=== PATIENT | female | born 1940 | race Caucasian/White ===

== ENCOUNTER 2020-04-04 14:28 | Inpatient (IN) ==
[2020-04-04] MEDS ORDERED: ONDANSETRON INJ 2 MG/ML 2 ML VIAL IV STA (15:09)
[2020-04-04] MEDS ORDERED: SODIUM CHLORIDE 0.9% 1000ML 1,000 ML IV SCH (15:15)
[2020-04-04 15:35] LABS: Basophils # (auto) 0.02 K/uL (0-0.2); Basophils % (auto) 0.5 %; Eosinophils % (auto) 2.5 %; Hematocrit (blood only) 44.1 % (37-47); Hemoglobin 14.9 g/dL (12.0-16.0); Lymphocytes # (auto) 1.32 K/uL (1.2-3.4); Lymphocytes % (auto) 32.8 %; Mean Corpuscular Hemoglobin 29.2 pg (25-34); Mean Corpuscular Hgb Conc 33.8 g/dL (32-36); Mean Corpuscular Volume 86.3 fL (80-100); Mean Platelet Volume 8.9 fL (7.4-10.4); Monocytes # (auto) 0.27 K/uL (0.11-0.59); Monocytes % (auto) 6.7 %; Neutrophils # (auto) 2.31 K/uL (1.4-6.5); Neutrophils % (auto) 57.5 %; Platelet Count 168 K/uL (130-400); RDW Coefficient of Variation 14.3 % (11.5-14.5); RDW Standard Deviation 45.4 fL (36.4-46.3); Red Blood Count 5.11 M/uL (4.2-5.4); White Blood Count 4.02 K/uL (4.8-10.8)
[2020-04-04] MEDS: fentaNYL citrate 100 MCG/2 ML VIAL IV PRN ×2 (15:39→16:45)
[2020-04-04 15:57] LABS: Albumin Level 3.3 gm/dl (3.4-5.0); BUN Creatinine Ratio 14.4 (10-20); Calcium 9.8 mg/dl (8.5-10.1); Creatinine Clr Calc Pharmacy 51.6 ml/min; Est GFR (African American) 65.9; Est GFR (Non-African American) 56.9; Potassium 3.7 mmol/L (3.5-5.1)
[2020-04-04 15:59] LABS: Albumin Globulin Ratio 0.7 (0.9-2); Bilirubin,Total 0.6 mg/dl (0.2-1); Globulin 4.4 gm/dl (2.5-4.0); Total Protein 7.7 gm/dl (6.4-8.2)
--- NOTE | 2020-04-04 16:09 | XRay Report ---
XR pelvis 1-2V routine CLINICAL HISTORY: pelvic pain, R SACROILIAC JOINT PAIN, unable to bear weight COMPARISON STUDY: None. FINDINGS: The bones are osteopenic. No fracture or dislocation within the pelvis or hips. The sacrum is intact. Mild osteoarthritis within the bilateral sacral iliac joints and hips. Soft tissues are un remarkable. IMPRESSION: No fracture or dislocation within the pelvis or hips. ACT 112: Negative or not required by law. Electronically signed by: Frankie Wyatt M.D. 04/04/2020 4:07 PM
--- NOTE | 2020-04-04 17:27 | Magnetic Resonance Report ---
MR pelvis wo con HISTORY: 79 years-old Female right pelvic pain, unable to bear weight acute right-sided pelvic pain in a patient with inability to bear weight. COMPARISON: Radiographs of the pelvis of same day, lumbar spine radiographs 08/28/2019 TECHNIQUE: Multiplanar multisequence MRI of the pelvis was obtained without the use of IV contrast. FINDINGS: There is a 1.3 cm ovoid focus of bone marrow edema noted involving the left superior pubic ramus with out definite fracture. Subtle linear signal abnormality noted within this distribution on image 11 se tesfaye 4 and 5 which appears to be artifactual. No significant adjacent soft tissue or periosteal edema . No sacral insufficiency fracture. There is mild osteoarthritis of the bilateral femoral acetabular joints with physiologic amount of fluid within the joint spaces. No acute fracture, dislocation or av ascular necrosis of the hips. No obvious labral tear identified. Mild enthesitis of the bilateral greater trochanters at the gluteal insertion sites. No bursitis iden tified. Colonic diverticulosis. Trace nonspecific free pelvic fluid. Cystic changes of the cervix are suggestive of nabothian cysts. IMPRESSION: 1. 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 No acute fracture, dislocation or avascular necrosis. 2. Small focus of mild bone marrow edema is noted involving the left superior pubic ramus without def initive fracture. Findings may reflect stress response versus contusion. ACT 112: Negative or not required by law. The above report was generated using voice recognition software. It may contain grammatical, syntax o r spelling errors. Electronically signed by: Bobby Vinson M.D. 04/04/2020 5:26 PM
--- NOTE | 2020-04-04 17:58 | Magnetic Resonance Report ---
MR lumbar spine wo con CLINICAL HISTORY: 79 years-old Female with lumbar back pain. Acute low back and pelvic pain COMPARISON: MRI pelvis of same day, lumbar spine radiographs 08/28/2019 TECHNIQUE: Multiplanar, multi sequence MRI of the lumbar spine was performed without intravenous cont rast. FINDINGS: Operations Assistant localizer images demonstrate no gross extraspinal abnormality. No aortic aneurysm. Dilated comm on bile duct measures up to 10 mm. 9 mm T2 hyperintense lesion suggestive of a cyst is noted within t he interpolar left kidney. Conus medullaris terminates at the level of L1. Signal within imaged thora cic spinal cord and cauda equina appears unremarkable. Mild lumbar levoscoliosis redemonstrated. Remote T12 compression deformity with progressively worsened now severe anterior and superior endplat e compression with to moderate associated bone marrow edema. 4 mm retropulsion. Acute 25% superior en dplate compression deformities are noted at T11 and L2 with moderate bone marrow edema and no signifi cant retropulsion. Trace paravertebral edema. Mild bone marrow edema involving the inferior endplate T10, likely degenerative/reactive. No additional acute fracture or subluxation. Degenerative partial bony fusion at L5-S1. Mild nonspecific paravertebral edema at L4-L5 bilaterally. Moderate to marked a trophy of the paraspinal musculature. The retropulsion at T12 flattens the ventral thecal sac resulting in mild central canal and mild righ t lateral recess narrowing. T12-L1: No central canal or neuroforaminal stenosis. L1-L2: Mild spondylitic spurring with ligamentum flavum thickening L2-L3: Minimal spondylitic spurring with small posterior annular disc bulge. Ligamentum flavum thick ening with moderate facet arthrosis. Mild central canal narrowing with mild inferior bilateral forami nal stenosis. L3-L4: Minimal spondylitic spurring with small posterior annular disc bulge. Ligamentum flavum thick ening with moderate facet arthrosis. No significant central canal stenosis. Mild inferior bilateral f oraminal stenosis. L4-L5: Mild spondylitic spurring with small posterior annular disc bulge. Ligamentum flavum thickeni ng with moderate facet arthrosis. Mild central canal stenosis, AP dimension of the thecal sac measuri ng 8 mm. Mild bilateral foraminal narrowing. L5-S1: Spondylitic spurring with mild to moderate facet arthrosis. No central canal or foraminal eric rowing. IMPRESSION: 1. Acute 25% superior endplate compression deformities at T11 and L2 without retropulsion. 2. Progressively worsened severe T12 compression deformity with 4 mm retropulsion. This results in mi ld central canal stenosis. 3. Multilevel discogenic degeneration and facet arthrosis as above. 4. No high-grade central canal or foraminal narrowing. 5. Mild edema within the paraspinal musculature bilaterally at L4-L5 may reflect a muscle strain. ACT 112: Negative or not required by law. The above report was generated using voice recognition software. It may contain grammatical, syntax o r spelling errors. Electronically signed by: Bobby Vinson M.D. 04/04/2020 5:57 PM
[2020-04-04] MEDS ORDERED: HYDROmorphone INJ 0.5 MG/0.5 ML SYR IV STA (18:01)
[2020-04-04] MEDS ORDERED: LORazepam 0.5 MG/1 ML VIAL IV STA (18:23)
--- NOTE | 2020-04-04 18:59 | History & Physical Report ---
Date of Service April 04, 2020 Assessment & Plan (1) Thoracic compression fracture: Suspect the T11 fracture is responsible for her acute back pain. Spontaneous, no trauma. Acetaminophen 1g TID [place] Tramadol (not effective as she had this at home) switch to oxycodone - monitor for delirium/confusion/constipation. TLSO brace for mobilization Lidocaine patch Calcitonin nasal spray PT/OT Vit D level now. Previously did well with Fosamax however given reflux would favor IV bisphosphonate therapy which could be started as outpatient. Consult ortho spine for further advice / follow up (2) Lumbar compression fracture: As above. (3) Acid reflux: Continue pantoprazole 40mg PO daily (4) Hypothyroidism: TSH WNL in December Continue levothyroxine 75 mcg PO daily (5) Hyperlipidemia: Continue simvastatin 10mg PO daily (6) Constipation: Start Miralax daily - depending on opioid use may need stimulant laxative to avoid worsening constipation. Admission and Anticipated Discharge Date Admission Date: Apr 04, 2020 History of Present Illness Primary Care Provider: Dania Pacheco MD Alejandra Ragsdale is an 79 year old female with prior history of osteoporosis who comes to the ER today with intractable back pain. She has been having ongoing issues with intermittent low back pain in February but was doing better when she saw her PCP just 6 days previously after a course of prednisone, baclofen and tramadol. She denies any trauma but cannot remember exactly what she was doing when it came on again. Pain in centre of her lower back. No radiation. Severity 10/10 on any movement, currently 0/10 when she doesn't move. No radiation down legs, incontinence of bowels/bladder or perianal numbness. She had been using a walker to help since her back pain with . She lives by herself and is currently unable to mobilize with the pain. Of note she has a significant history of osteoporosis and was on Fosamax for "a number of years". She reports having a repeat DEXA scan showing osteopenia and given the duration of being on Fosamax this was subsequently discontinued (she thinks approximately 10 years years ago. Only fractures since have been due to a fall. She also reports an episode of back spasms in August this year with in hindsight was probably the start of her compression fractures. In the ER lumbar MRI showed acute superior endplate compression deformities of T11 and L2 with progressively worsened severe T12 compression fracture with 4mm retropulsion resulting in mild central canal stenosis. She was referred to medicine for admission and ongoing management of compression fractures and intractable back pain. Allergies Allergy/AdvReac Type Severity Reaction Status Date / Time adhesive Allergy Severe Redness of Verified 04/04/20 15:42 Skin Home Medications Medication Instructions Recorded Confirmed Type fluticasone propionate 250 1 puffs INH BID #180 ea 06/28/19 04/04/20 Rx mcg/actuation blister powder for inhalation simvastatin 10 mg tablet 10 mg PO QPM #90 tab 11/15/19 04/04/20 Rx acetaminophen [Tylenol 8 Hour] 650 mg PO Q12H PRN 11/22/19 04/04/20 History pantoprazole 40 mg PO QAM 11/22/19 04/04/20 History levothyroxine 75 mcg capsule 75 mcg PO DAILY #90 cap 01/04/20 04/04/20 Rx Past Med/Surg History Medical History Asthma DOESNT USE RESC. INH GERD (gastroesophageal reflux disease) Hx of colonic polyps Hypertension ON ABOVE LIST BUT 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" Hypothyroidism Left leg cellulitis RESOLVED Osteoarthritis Right shoulder pain Surgical History History of colonoscopy History of tooth extraction Hx of bilateral cataract extraction S/P carpal tunnel release RIGHT S/P cholecystectomy S/P tonsillectomy Family History Grandfather (Paternal) Colorectal cancer Lung cancer Grandfather (Maternal) Myocardial infarction Mother Stroke Grandmother Rectal cancer Uterine cancer Denies family history of Ovarian cancer Prostate cancer Breast cancer Social History Smoking Status: Former smoker Age Started Using Tobacco: 12; Age Quit Using Tobacco: 56; packs per day: 2; Years Smoked: 44; Cigarettes Per Day: 20-40; Second Hand Exposure: No; Do You Dip or Chew Tobacco: No; Tobacco Cessation Education Requested by Patient: No Hx Alcohol Use: No Hx Substance Use: Yes Substance Use Type Other:: pain medication for pain Preferred Language: Macedonian Communication Ability: Effective Visual Impairment: No Limitations Hearing Ability: Normal Land Law Examiner Required: No Beliefs That Will Affect Care: None marital status: / Current Living Situation: Alone current occupational status: retired Other Information That Helps Us Care for You: No Feels Safe at Home: Yes Safety Concerns: Feels Safe At This Time Childhood Exposure to Second-Hand Smoke: Yes (mother and sister in house) Dental Care, Regularly: Yes Physical Activity Frequency: Does not Exercise Seatbelt Use: always Sunscreen Use: Yes Assistive Devices: Walker Review of Systems Review of Systems: All systems reviewed & are unremarkable except as noted in HPI & below Physical Exam Constitutional: well developed and well nourished; no acute distress Eyes: PERRL, conjunctivae normal, anicteric sclerae ENMT: external ear and nose normal, oropharynx normal Neck: trachea midline, no thyromegaly Respiratory: normal respiratory effort, lungs clear to auscultation Cardiovascular: RRR, no murmur, no edema Gastrointestinal (Abdomen): normal bowel sounds, soft, nontender, no hepatosplenomegaly Musculoskeletal: no cyanosis or clubbing, extremities motor strength 5/5 (b/l LE strength 5/5 throughout) Spine: + limited thoraco-lumbar ROM (due to pain), + pain with thoraco-lumbar ROM, + thoracic spinal tenderness (main pain over T11/12 on movement, mainly paraspinal pain on exam), + lumbar spinal tenderness and + straight leg raise positive (b/l); no sacral tenderness Skin: no rashes, warm and dry Neurologic: moves all extremities and awake; no focal motor deficits and not confused Psychiatric: A+Ox3, euthymic affect Results & Data Results & Data ([facility]) Vital Signs (Past 12 Hours) Vital Signs Temp Pulse Pulse Resp BP BP Pulse Ox 04/04/20 18:31 94 H 15 97 04/04/20 18:30 88 15 143/86 H 99 04/04/20 18:07 89 L 04/04/20 18:01 79 17 92 04/04/20 18:00 83 20 153/83 H 95 04/04/20 17:59 84 12 159/85 H 97 04/04/20 17:58 89 18 97 04/04/20 16:00 72 13 99 04/04/20 15:31 77 16 96 04/04/20 15:30 74 12 140/67 95 04/04/20 15:01 81 18 94 04/04/20 15:00 78 14 128/78 95 04/04/20 14:39 84 23 93 04/04/20 14:38 36.9 C 89 89 20 168/69 H 168/69 H 94 04/04/20 14:34 82 21 168/69 H 94 Diagnostic Findings XR chest 1V portable IMPRESSION: No acute process. XR pelvis 1-2V routine IMPRESSION: No fracture or dislocation within the pelvis or hips. MR pelvis wo con IMPRESSION: 1. 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 No acute fracture, dislocation or avascular necrosis. 2. Small focus of mild bone marrow edema is noted involving the left superior pubic ramus without definitive fracture. Findings may reflect stress response versus contusion. MR lumbar spine wo con IMPRESSION: 1. Acute 25% superior endplate compression deformities at T11 and L2 without retropulsion. 2. Progressively worsened severe T12 compression deformity with 4 mm retropulsion. This results in mild central canal stenosis. 3. Multilevel discogenic degeneration and facet arthrosis as above. 4. No high-grade central canal or foraminal narrowing. 5. Mild edema within the paraspinal musculature bilaterally at L4-L5 may reflect a muscle strain. Medications Administered ER Medications given: NSS 1L 75 ml/hr Fentanyl 50 mcg IV x2 Ondansetron 4mg IV Dilaudid 0.25mg IV Code Status & VTE Plan Code Status Full VTE Prophylaxis Plan VTE Prophylaxis will be ordered: No PG Care Time/CCT Total # of Minutes Spent Total Time Spent with Patient: Total time spent is greater than 50% in coordination of care (as documented) at patient's floor/unit and/or counseling patient: Coding Level of Care Code 63342 OBS Care - Level 2 Diagnoses Thoracic compression fracture S22.000A Lumbar compression fracture S32.000A Acid reflux K21.9 Hypothyroidism E03.9 Hyperlipidemia E78.5 Constipation K59.00
--- NOTE | 2020-04-04 20:43 | XRay Report ---
XR chest 1V portable HISTORY: 79 years-old Female hypoxia acute hypoxia COMPARISON: None TECHNIQUE: Portable supine AP view of the chest FINDINGS: Cardiomediastinal and hilar silhouettes are within normal limits. Calcified plaque of the aorta. Mini mal linear atelectasis/scarring of the left lung base. No pneumothorax, large pleural effusion, overt pulmonary edema or airspace consolidation to suggest pneumonia. Blunting of the costophrenic angles. Bones appear grossly intact. IMPRESSION: No acute process. ACT 112: Negative or not required by law. The above report was generated using voice recognition software. It may contain grammatical, syntax o r spelling errors. Electronically signed by: Bobby Vinson M.D. 04/04/2020 8:42 PM
--- NOTE | 2020-04-04 21:22 | Emergency Department Note ---
Impression & Plan Compression fracture of thoracic vertebrae, non-traumatic, Thoracic compression fracture, Compression fracture of lumbar vertebra, non-traumatic, Intractable back pain ED Provider Note NAME: DIONICIO PENALOZA AGE: 79 SEX: F ARRIVES VIA: Ambulance INFORMANT: Patient, ED PROVIDER(S): Deena Marin MD CHIEF COMPLAINT: Back pain PLAN: Disposition: Admission Condition: Fair Referral: Hospitalist MEDICAL DECISION MAKING: This patient was evaluated and appeared to be in some discomfort. IV access was obtained and laboratory work was drawn. Patient did have lumbar x-rays performed previously, pelvis x-ray was performed without acute abnormality. Lumbar and pelvic MRIs were performed and are significant for acute 25% superior endplate compression deformities at T11 and L2 without retropulsion and progressively worsened severe T12 compression deformity with 4 mm retropulsion. This results in mild central canal stenosis. This explains the patient's significant worsening of back pain and inability to ambulate. She was medicated with IV fentanyl initially without significant relief, she was then given IV Dilaudid and a small dose of IV Ativan for muscular spasm. Patient's case was d iscussed with the hospitalist service who will evaluate the patient for further management. Triage Nursing notes reviewed. Prior medical records reviewed Vital Signs: reviewed and remarkable for no significant abnormalities Differential diagnosis: Musculoskeletal, disc herniation, fracture, metastatic disease, cord compr ession, discitis, sciatica, cauda equina, infection, aortic disease, renal colic, gastrointestinal, as well as other pathologies. ER treatment provided: IV fentanyl IV Zofran IV Dilaudid IV Ativan Diagnostics interpreted by me: Cardiac Monitoring: An order for cardiac monitoring was placed and the patient is noted to be in a normal sinus rhythm at 89 bpm. Laboratory studies: See below Imaging studies: XR pelvis 1-2V routine CLINICAL HISTORY: pelvic pain, R SACROILIAC JOINT PAIN, unable to bear weight COMPARISON STUDY: None. FINDINGS: The bones are osteopenic. No fracture or dislocation within the pelvis or hips. The sacrum is intact. Mild osteoarthritis within the bilateral sacral iliac joints and hips. Soft tissues are unremarkable. IMPRESSION: No fracture or dislocation within the pelvis or hips. ACT 112: Negative or not required by law. Electronically signed by: Frankie Wyatt M.D. 04/04/2020 4:07 PM Dictated: 04/04/20 1604Transcribed: 04/04/20 1604 MR lumbar spine wo con CLINICAL HISTORY: 79 years-old Female with lumbar back pain. Acute low back and pelvic pain COMPARISON: MRI pelvis of same day, lumbar spine radiographs 08/28/2019 TECHNIQUE: Multiplanar, multi sequence MRI of the lumbar spine was performed without intravenous contrast. FINDINGS: Surgical Aide localizer images demonstrate no gross extraspinal abnormality. No aortic aneurysm. Dilated common bile duct measures up to 10 mm. 9 mm T2 hyperintense lesion suggestive of a cyst is noted within the interpolar left kidney. Conus medullaris terminates at the level of L1. Signal within imaged thoracic spinal cord and cauda equina appears unremarkable. Mild lumbar levoscoliosis redemonstrated. Remote T12 compression deformity with progressively worsened now severe anterior and superior endplate compression with to moderate associated bone marrow edema. 4 mm retropulsion. Acute 25% superior endplate compression deformities are noted at T11 and L2 with moderate bone marrow edema and no significant retropulsion. Trace paravertebral edema. Mild bone marrow edema involving the inferior endplate T10, likely degenerative/reactive. No additional acute fracture or subluxation. Degenerative partial bony fusion at L5-S1. Mild nonspecific paravertebral edema at L4-L5 bilaterally. Moderate to marked atrophy of the paraspinal musculature. The retropulsion at T12 flattens the ventral thecal sac resulting in mild central canal and mild right lateral recess narrowing. T12-L1: No central canal or neuroforaminal stenosis. L1-L2: Mild spondylitic spurring with ligamentum flavum thickening L2-L3: Minimal spondylitic spurring with small posterior annular disc bulge. Ligamentum flavum thickening with moderate facet arthrosis. Mild central canal narrowing with mild inferior bilateral foraminal stenosis. L3-L4: Minimal spondylitic spurring with small posterior annular disc bulge. Ligamentum flavum thickening with moderate facet arthrosis. No significant leda tral canal stenosis. Mild inferior bilateral foraminal stenosis. L4-L5: Mild spondylitic spurring with small posterior annular disc bulge. Ligamentum flavum thickening with moderate facet arthrosis. Mild central canal stenosis, AP dimension of the thecal sac measuring 8 mm. Mild bilateral foramina l narrowing. L5-S1: Spondylitic spurring with mild to moderate facet arthrosis. No central canal or foraminal narrowing. IMPRESSION: 1. Acute 25% superior endplate compression deformities at T11 and L2 without retropulsion. 2. Progressively worsened severe T12 compression deformity with 4 mm r etropulsion. This results in mild central canal stenosis. 3. Multilevel discogenic degeneration and facet arthrosis as above. 4. No high-grade central canal or foraminal narrowing. 5. Mild edema within the paraspinal musculature bilaterally at L4-L5 may reflect a muscle strain. ACT 112: Negative or not required by law. The above report was generated using voice recognition software. It may contain grammatical, syntax or spelling errors. Electronically signed by: oBbby Vinson M.D. 04/04/2020 5:57 PM Dictated: 04/04/20 174Transcribed: 04/04/201745 MR pelvis wo con HISTORY: 79 years-old Female right pelvic pain, unable to bear weight acute right-sided pelvic pain in a patient with inability to bear weight. COMPARISON: Radiographs of the pelvis of same day, lumbar spine radiographs 08/28/2019 TECHNIQUE: Multiplanar multisequence MRI of the pelvis was obtained without the use of IV contrast. FINDINGS: There is a 1.3 cm ovoid focus of bone marrow edema noted involving the left superior pubic ramus without definite fracture. Subtle linear signal abnormality noted within this distribution on image 11 series 4 and 5 which appears to be artifactual. No significant adjacent soft tissue or periosteal edema. No sacral insufficiency fracture. There is mild osteoarthritis of the bilateral femoral acetabular joints with physiologic amount of fluid within the joint spaces. No acute fracture, dislocation or avascular necrosis of the hips. No obvious labral tear identified. Mild enthesitis of the bilateral greater trochanters at the gluteal insertion sites. No bursitis identified. Colonic diverticulosis. Trace nonspecific free pelvic fluid. Cystic changes of the cervix are suggestive of nabothian cysts. IMPRESSION: 1. 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 No acute fracture, dislocation or avascular necrosis. 2. Small focus of mild bone marrow edema is noted involving the left superior pubic ramus without definitive fracture. Findings may reflect stress response versus contusion. ACT 112: Negative or not required by law. The above report was generated using voice recognition software. It may contain grammatical, syntax or spelling errors. Electronically signed by: Bobby Vinson M.D. 04/04/2020 5:26 PM Dictated: 04/04/201717Transcribed: 04/04/201717 HPI: 79/F arrives for evaluation of intractable back pain. The patient states she has been walking with a walker and attempting to hold herself up with her hands at the sink. She states she is not able to bear weight without supporting herself with her upper extremities. Patient believes it is related to pain and not necessarily weakness however this is a significant decline over the last month. Patient states in August she had similar pain and was treated with oral pain medicines and it seemed to resolve. In February of this pain came back and she was treated with muscle relaxers, steroids and pain medicines. She has not been able to get a hold of the pain and it has become severe in the last several days. She denies any loss of bowel or bladder function. She denies any recent falls. She denies any known injury to the back. ROS: See above HPI for pertinent positives & negatives. A total of 10 systems reviewed and were otherwise negative. PAST MEDICAL HISTORY:See Below PAST SURGICAL HISTORY:See Below FAMILY HISTORY:See Below SOCIAL HISTORY:See Below HOME MEDICATIONS:See Below ALLERGIES:See Below PHYSICAL EXAMINATION: Vital signs reviewed. General: Well-appearing 79-year-old female, in some discomfort Cardiovascular: Regular rate and rhythm, no extra sounds. Pulmonary: Clear to auscultation bilaterally, normal work of breathing. Abdomen: Soft, nontender, nondistended, positive bowel sounds. Musculoskeletal: Atraumatic, minimal peripheral edema. Nontender to palpation o rubens the cervical and thoracic spines with minimal tenderness to palpation over the low lumbar spine. There is tenderness over the right SI joint without acute deformity or swelling. No pain to pelvic rocking. Negative straight leg raise bilaterally. Neurologic: Patient awake alert and oriented x 3, equal strength in the bilateral lower extremities. Skin: Warm, dry, no rash Deena Marin MD Past Med/Surg History Medical History (Updated 04/05/20 @ 17:32 by PORTIA Chow) Asthma DOESNT USE RESC. INH GERD (gastroesophageal reflux disease) Hx of colonic polyps Hypertension ON ABOVE LIST BUT 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" Hypothyroidism Left leg cellulitis RESOLVED Osteoarthritis Right shoulder pain Surgical History History of colonoscopy History of tooth extraction Hx of bilateral cataract extraction S/P carpal tunnel release RIGHT S/P cholecystectomy S/P tonsillectomy Family History Grandfather (Paternal) Colorectal cancer Lung cancer Grandfather (Maternal) Myocardial infarction Mother Stroke Grandmother Rectal cancer Uterine cancer Denies family history of Ovarian cancer Prostate cancer Breast cancer Social History Smoking Status: Former smoker Age Started Using Tobacco: 12; Age Quit Using Tobacco: 56; packs per day: 2; Years Smoked: 44; Cigarettes Per Day: 20-40; Second Hand Exposure: No; Do You Dip or Chew Tobacco: No; Tobacco Cessation Education Requested by Patient: No Hx Alcohol Use: No Hx Substance Use: Yes Substance Use Type Other:: pain medication for pain Preferred Language: Occitan Communication Ability: Effective Visual Impairment: No Limitations Hearing Ability: Normal Chancery Clerk Required: No Beliefs That Will Affect Care: None marital status: / Current Living Situation: Alone current occupational status: retired Other Information That Helps Us Care for You: No Feels Safe at Home: Yes Safety Concerns: Feels Safe At This Time Childhood Exposure to Second-Hand Smoke: Yes (mother and sister in house) Dental Care, Regularly: Yes Physical Activity Frequency: Does not Exercise Seatbelt Use: always Sunscreen Use: Yes Assistive Devices: Denture - Upper and Walker Allergies Allergies Allergy/AdvReac Type Severity Reaction Status Date / Time adhesive Allergy Severe Redness of Verified 04/04/20 15:42 Skin Home Meds Home Medications Medication Instructions Recorded Confirmed acetaminophen [Tylenol 8 Hour] 650 mg PO Q12H PRN 11/22/19 04/04/20 pantoprazole 40 mg PO QAM 11/22/19 04/04/20 Previous Rx's Medication Instructions Recorded fluticasone propionate 250 1 puffs INH BID #180 ea 06/28/19 mcg/actuation blister powder for inhalation simvastatin 10 mg tablet 10 mg PO QPM #90 tab 11/15/19 levothyroxine 75 mcg capsule 75 mcg PO DAILY #90 cap 01/04/20 Results & Data (ED) Vital Signs Vital Signs - 24 hr 04/04/20 14:34 04/04/20 14:38 04/04/20 14:39 Temperature 36.9 C Temperature Source Oral Pulse Rate 82 89 84 Pulse Rate [Apical] 89 Pulse Rate from SpO2 Sensor 82 84 Respiratory Rate 21 20 23 Respiratory Effort / Characteristics Non-Labored Spontaneous Respiratory Depth Normal Respiratory Pattern Regular Blood Pressure 168/69 H 168/69 H Blood Pressure [Right Arm] 168/69 H Blood Pressure Mean 102 102 Blood Pressure Mean [Right Arm] 102 Pulse Oximetry 94 94 93 Oxygen Delivery Method Room Air Oxygen Flow Rate Sepsis Recent Fever Within 48 Hours No Sepsis New/Unexplained Change in Mental Status No Sepsis Action Taken by Nursing No Action Required Pulse Oximetry Post Tiitration 04/04/20 15:00 04/04/20 15:01 04/04/20 15:30 Temperature Temperature Source Pulse Rate 78 81 74 Pulse Rate [Apical] Pulse Rate from SpO2 Sensor 78 81 74 Respiratory Rate 14 18 12 Respiratory Effort / Characteristics Respiratory Depth Respiratory Pattern Blood Pressure 128/78 140/67 Blood Pressure [Right Arm] Blood Pressure Mean 94 91 Blood Pressure Mean [Right Arm] Pulse Oximetry 95 94 95 Oxygen Delivery Method Oxygen Flow Rate Sepsis Recent Fever Within 48 Hours Sepsis New/Unexplained Change in Mental Status Sepsis Action Taken by Nursing Pulse Oximetry Post Tiitration 04/04/20 15:31 04/04/20 16:00 04/04/20 17:58 Temperature Temperature Source Pulse Rate 77 72 89 Pulse Rate [Apical] Pulse Rate from SpO2 Sensor 76 72 81 Respiratory Rate 16 13 18 Respiratory Effort / Characteristics Respiratory Depth Respiratory Pattern Blood Pressure Blood Pressure [Right Arm] Blood Pressure Mean Blood Pressure Mean [Right Arm] Pulse Oximetry 96 99 97 Oxygen Delivery Method Oxygen Flow Rate Sepsis Recent Fever Within 48 Hours Sepsis New/Unexplained Change in Mental Status Sepsis Action Taken by Nursing Pulse Oximetry Post Tiitration 04/04/20 17:59 04/04/20 18:00 04/04/20 18:01 Temperature Temperature Source Pulse Rate 84 83 79 Pulse Rate [Apical] Pulse Rate from SpO2 Sensor 79 80 79 Respiratory Rate 12 20 17 Respiratory Effort / Characteristics Respiratory Depth Respiratory Pattern Blood Pressure 159/85 H 153/83 H Blood Pressure [Right Arm] Blood Pressure Mean 109 106 Blood Pressure Mean [Right Arm] Pulse Oximetry 97 95 92 Oxygen Delivery Method Oxygen Flow Rate Sepsis Recent Fever Within 48 Hours Sepsis New/Unexplained Change in Mental Status Sepsis Action Taken by Nursing Pulse Oximetry Post Tiitration 04/04/20 18:07 04/04/20 18:30 04/04/20 18:31 Temperature Temperature Source Pulse Rate 88 94 H Pulse Rate [Apical] Pulse Rate from SpO2 Sensor 87 79 Respiratory Rate 15 15 Respiratory Effort / Characteristics Respiratory Depth Respiratory Pattern Blood Pressure 143/86 H Blood Pressure [Right Arm] Blood Pressure Mean 105 Blood Pressure Mean [Right Arm] Pulse Oximetry 89 L 99 97 Oxygen Delivery Method Nasal Cannula Oxygen Flow Rate 2 Sepsis Recent Fever Within 48 Hours Sepsis New/Unexplained Change in Mental Status Sepsis Action Taken by Nursing Pulse Oximetry Post Tiitration 97 04/04/20 19:00 04/04/20 19:30 04/04/20 20:00 Temperature Temperature Source Pulse Rate 82 86 72 Pulse Rate [Apical] Pulse Rate from SpO2 Sensor 80 86 73 Respiratory Rate 15 14 13 Respiratory Effort / Characteristics Respiratory Depth Respiratory Pattern Blood Pressure 150/76 H 157/85 H 151/73 H Blood Pressure [Right Arm] Blood Pressure Mean 100 109 99 Blood Pressure Mean [Right Arm] Pulse Oximetry 98 99 99 Oxygen Delivery Method Oxygen Flow Rate Sepsis Recent Fever Within 48 Hours Sepsis New/Unexplained Change in Mental Status Sepsis Action Taken by Nursing Pulse Oximetry Post Tiitration Laboratory Data Result diagrams: 04/04/20 15:24 04/04/20 15:24 Lab Results 04/04/20 04/04/20 04/04/20 Range/Units 15:24 15:24 15:24 WBC 4.02 L (4.8-10.8) K/uL RBC 5.11 (4.2-5.4) M/uL Hgb 14.9 (12.0-16.0) g/dL Hct 44.1 (37-47) % MCV 86.3 (80-100) fL MCH 29.2 (25-34) pg MCHC 33.8 (32-36) g/dL RDW Std Deviation 45.4 (36.4-46.3) fL RDW Coeff of Jean Carlos 14.3 (11.5-14.5) % Plt Count 168 (130-400) K/uL MPV 8.9 (7.4-10.4) fL Immature Gran % (Auto) 0.0 % Neut % (Auto) 57.5 % Lymph % (Auto) 32.8 % [place] % (Auto) 6.7 % Eos % (Auto) 2.5 % Baso % (Auto) 0.5 % Neut # (Auto) 2.31 (1.4-6.5) K/uL Lymph # (Auto) 1.32 (1.2-3.4) K/uL [place] # (Auto) 0.27 (0.11-0.59) K/uL Eos # (Auto) 0.10 (0-0.5) K/uL Baso # (Auto) 0.02 (0-0.2) K/uL Immature Gran # (Auto) 0.00 (0.00-0.02) K/uL Sodium 141 (136-145) mmol/L Potassium 3.7 (3.5-5.1) mmol/L Chloride 110 H (98-107) mmol/L Carbon Dioxide 25 (21-32) mmol/L Anion Gap 6.0 (3-11) BUN 14 (7-18) mg/dl Creatinine 0.94 (0.6-1.2) mg/dl Est Cr Clr Drug Dosing 51.6 ml/min Est GFR ( Amer) 65.9 Est GFR (Non-Af Amer) 56.9 BUN/Creatinine Ratio 14.4 (10-20) Glucose 89 (70-99) mg/dl POC Lactic Acid Mamadou (0.90-1.70) mmol/L Calcium 9.8 (8.5-10.1) mg/dl Total Bilirubin 0.6 (0.2-1) mg/dl AST 20 (15-37) U/L ALT 17 (12-78) U/L Alkaline Phosphatase 103 (45-117) U/L Total Protein 7.7 (6.4-8.2) gm/dl Albumin 3.3 L (3.4-5.0) gm/dl Globulin 4.4 H (2.5-4.0) gm/dl Albumin/Globulin Ratio 0.7 L (0.9-2) 25-OH Vitamin D Total 19.6 L (30-100) ng/ml 04/04/20 Range/Units 15:30 WBC (4.8-10.8) K/uL RBC (4.2-5.4) M/uL Hgb (12.0-16.0) g/dL Hct (37-47) % MCV (80-100) fL MCH (25-34) pg MCHC (32-36) g/dL RDW Std Deviation (36.4-46.3) fL RDW Coeff of Jean Carlos (11.5-14.5) % Plt Count (130-400) K/uL MPV (7.4-10.4) fL Immature Gran % (Auto) % Neut % (Auto) % Lymph % (Auto) % [place] % (Auto) % Eos % (Auto) % Baso % (Auto) % Neut # (Auto) (1.4-6.5) K/uL Lymph # (Auto) (1.2-3.4) K/uL [place] # (Auto) (0.11-0.59) K/uL Eos # (Auto) (0-0.5) K/uL Baso # (Auto) (0-0.2) K/uL Immature Gran # (Auto) (0.00-0.02) K/uL Sodium (136-145) mmol/L Potassium (3.5-5.1) mmol/L Chloride (98-107) mmol/L Carbon Dioxide (21-32) mmol/L Anion Gap (3-11) BUN (7-18) mg/dl Creatinine (0.6-1.2) mg/dl Est Cr Clr Drug Dosing ml/min Est GFR ( Amer) Est GFR (Non-Af Amer) BUN/Creatinine Ratio (10-20) Glucose (70-99) mg/dl POC Lactic Acid Mamadou 1.20 (0.90-1.70) mmol/L Calcium (8.5-10.1) mg/dl Total Bilirubin (0.2-1) mg/dl AST (15-37) U/L ALT (12-78) U/L Alkaline Phosphatase (45-117) U/L Total Protein (6.4-8.2) gm/dl Albumin (3.4-5.0) gm/dl Globulin (2.5-4.0) gm/dl Albumin/Globulin Ratio (0.9-2) 25-OH Vitamin D Total (30-100) ng/ml Administered Medications Acetaminophen (Acetaminophen 500 Mg Tab) 1,000 mg PO TID [place] Stop: 05/04/20 22:30 Last Admin: 04/05/20 20:11 Dose: 1,000 mg Documented by: [id number] Admin: 04/05/20 14:08 Dose: 1,000 mg Documented by: [id number] Admin: 04/05/20 08:06 Dose: 1,000 mg Documented by: [id number] Admin: 04/05/20 00:01 Dose: 1,000 mg Documented by: [id number] Calcitonin Hartshorne (Calcitonin Hartshorne Na 200 Iu/Ac 3.7 Ml Btl) 1 sprays NA HS [facility] Stop: 05/04/20 22:30 Last Admin: 04/05/20 20:12 Dose: 1 sprays Documented by: [id number] Admin: 04/05/20 00:00 Dose: 1 sprays Documented by: [id number] Fluticasone/Vilanterol (Fluticasone/Vilanterol 100/25mcg 14 Puffs/Inhaler) 1 puffs INH DAILY [facility] Stop: 05/05/20 08:59 Last Admin: 04/05/20 08:05 Dose: 1 puffs Documented by: [id number] Levothyroxine Sodium (Levothyroxine Sodium 75 Mcg Tablet) 75 mcg PO DAILYBB [facility] Stop: 05/05/20 06:29 Last Admin: 04/05/20 06:44 Dose: 75 mcg Documented by: [id number] Lidocaine (Lidocaine 5% 1 Patch) 1 patch TD DAILY@0900 [facility] Stop: 05/05/20 08:59 Last Admin: 04/05/20 08:58 Dose: 1 patch Documented by: [id number] Miscellaneous (Remove Lidoderm Patch) 1 ea N/A [facility] Stop: 05/05/20 20:59 Last Admin: 04/05/20 20:12 Dose: 1 ea Documented by: [id number] Oxycodone HCl (Oxycodone Hcl Ir 5 Mg Tab (Immediate Release)) 5 - 10 mg PO Q4H PRN PRN Reason: Pain Stop: 04/18/20 22:30 Last Admin: 04/05/20 22:44 Dose: 10 mg Documented by: [id number] Admin: 04/05/20 18:21 Dose: 10 mg Documented by: [id number] Pantoprazole Sodium (Pantoprazole 40 Mg Tab) 40 mg PO QAM [facility] Stop: 05/05/20 08:59 Last Admin: 04/05/20 08:05 Dose: 40 mg Documented by: [id number] Polyethylene Glycol (Polyethylene (Miralax) 17 Gm Pack) 17 gm PO DAILY PRN PRN Reason: Constipation Stop: 05/04/20 22:30 Last Admin: 04/05/20 17:32 Dose: 17 gm Documented by: [id number] Polyethylene Glycol (Polyethylene (Miralax) 17 Gm Pack) 17 gm PO [facility] Stop: 05/05/20 08:59 Last Admin: 04/05/20 08:00 Dose: Not Given Documented by: [id number] Simvastatin (Simvastatin 10 Mg Tab) 10 mg PO QPM [facility] Stop: 05/04/20 22:30 Last Admin: 04/05/20 20:12 Dose: 10 mg Documented by: [id number] Admin: 04/05/20 00:02 Dose: 10 mg Documented by: [id number] Discontinued Medications Fentanyl Citrate (Fentanyl Citrate 100 Mcg/2 Ml Vial) 50 mcg IV Q1H PRN PRN Reason: Pain Stop: 04/18/20 15:08 Last Admin: 04/04/20 16:45 Dose: 50 mcg Documented by: [id number] Admin: 04/04/20 15:39 Dose: 50 mcg Documented by: [id number] Hydromorphone HCl (Hydromorphone Inj 0.5 Mg/0.5 Ml Syr) 0.25 mg IV NOW STA Stop: 04/04/20 18:02 Last Admin: 04/04/20 18:17 Dose: 0.25 mg Documented by: [id number] Sodium Chloride (Nss 1000ml) 1,000 mls @ 75 mls/hr IV .[id number] [facility] Stop: 04/05/20 04:34 Last Infusion: 04/04/20 22:30 Dose: 0 mls/hr Documented by: [id number] Admin: 04/04/20 15:38 Dose: 75 mls/hr Documented by: [id number] Lorazepam (Ativan) 0.5 mg in 1 mls @ 1 mls/min IV NOW STA Stop: 04/04/20 18:24 Last Admin: 04/04/20 18:29 Dose: 1 mls/min Documented by: [id number] Lidocaine (Lidocaine 5% 1 Patch) 1 patch TD DAILY@2100 [facility] Stop: 05/04/20 22:30 Last Admin: 04/05/20 01:31 Dose: Not Given Documented by: [id number] Miscellaneous (Remove Lidoderm Patch) 1 ea N/A QAM [facility] Stop: 05/05/20 08:59 Last Admin: 04/05/20 07:59 Dose: Not Given Documented by: [id number] Ondansetron HCl (Ondansetron Inj 2 Mg/Ml 2 Ml Vial) 4 mg IV NOW STA Stop: 04/04/20 15:10 Last Admin: 04/04/20 15:39 Dose: 4 mg Documented by: [id number] Oxycodone HCl (Oxycodone Hcl Ir 5 Mg Tab (Immediate Release)) 5 mg PO Q4H PRN PRN Reason: Pain Stop: 04/18/20 22:30 Last Admin: 04/05/20 14:08 Dose: 5 mg Documented by: [id number] Admin: 04/05/20 08:04 Dose: 5 mg Documented by: [id number] Admin: 04/04/20 23:03 Dose: 5 mg Documented by: [id number] Discharge Plan Visit Data Chief Complaint: Back Injury/Pain ED Provider: Deena Marin Discharge Problem: Compression fracture of thoracic vertebrae, non-traumatic, Thoracic compression fracture, Compression fracture of lumbar vertebra, non-traumatic, Intractable back pain Patient Disposition: Admitted As Inpatient Discharge Instructions Interventions: ED Discharge Assessment Last Done: 04/04/20 22:27 Discharge Problem: Compression fracture of thoracic vertebrae, non-traumatic Qualifiers: Encounter type: initial encounter Thoracic vertebra fracture level: T11 Qualified Code(s): M48.54XA - Collapsed vertebra, not elsewhere classified, thoracic region, initial encounter for fracture Thoracic compression fracture Qualifiers: Encounter type: initial encounter Thoracic vertebra fracture level: T12 Qualified Code(s): S22.080A - Wedge compression fracture of T11-T12 vertebra, initial encounter for closed fracture Compression fracture of lumbar vertebra, non-traumatic Qualifiers: Encounter type: initial encounter Lumbar vertebra fracture level: L2 Qualified Code(s): M48.56XA - Collapsed vertebra, not elsewhere classified, lumbar region, initial encounter for fracture
[2020-04-04] MEDS ORDERED: ONDANSETRON INJ 2 MG/ML 2 ML VIAL IV PRN (22:31)
[2020-04-04] MEDS ORDERED: ALUMINUM/MAGNESIUM SUSP 30 ML UDC PO PRN (22:31)
[2020-04-04] MEDS ORDERED: POLYETHYLENE (MIRALAX) 17 GM PACK PO PRN (22:31)
[2020-04-04] MEDS ORDERED: HYDROmorphone INJ 0.5 MG/0.5 ML SYR IV PRN (22:31)
[2020-04-04] MEDS ORDERED: LIDOCAINE 5% 1 PATCH TD SCH (22:31)
[2020-04-04] MEDS: oxyCODONE HCL IR 5 MG TAB (IMMEDIATE RELEASE) PO PRN (23:03)
[2020-04-05] MEDS: ACETAMINOPHEN 500 MG TAB PO SCH ×4 (00:01→20:11)
[2020-04-05] MEDS: SIMVASTATIN 10 MG TAB PO SCH ×2 (00:02→20:12)
[2020-04-05] MEDS: LEVOTHYROXINE SODIUM 75 MCG TABLET PO SCH (06:44)
[2020-04-05] MEDS: POLYETHYLENE (MIRALAX) 17 GM PACK PO SCH (08:00)
[2020-04-05] MEDS: oxyCODONE HCL IR 5 MG TAB (IMMEDIATE RELEASE) PO PRN ×4 (08:04→22:44)
[2020-04-05] MEDS: FLUTICASONE/VILANTEROL 100/25MCG 14 PUFFS/INHALER INH SCH (08:05)
[2020-04-05] MEDS: PANTOprazole 40 MG TAB PO SCH (08:05)
[2020-04-05] MEDS: LIDOCAINE 5% 1 PATCH TD SCH (08:58)
[2020-04-05] MEDS ORDERED: LIDOCAINE 5% 1 PATCH TD SCH ×2 (09:00→21:00)
--- NOTE | 2020-04-05 10:29 | Orthopedic Consultation ---
Date of Consultation April 05, 2020 Assessment & Plan (1) Compression fracture of thoracic vertebrae, non-traumatic: Lungs yesterday with the patient regarding her imaging and treatment plan. At this time she will wear her TLSO brace when out of bed and ambulating. I explained to her that most of these fractures heal very well with the passage of time and some modest pain control. If however she continues to have pain that is limiting in nature despite therapy and the passage of time we may have to consider kyphoplasty however would like to avoid this. Should require at least a 2 level kyphoplasty at T11 and L2. T12 is essentially vertebral plan it would be almost impossible to access. That said she is at high risk for adjacent level fractures. Present on Admission?: Yes History of Present Illness Reason for Consultation: Back pain Attending Physician: John Rosales, DO History of Present Illness This is a very pleasant 79-year-old female who presents to emergency room with significant back pain. She denies any history of trauma fall or event. She did undergo imaging which demonstrated compression fractures of T11-T12 and L2. Today she decreased transcribes mostly back pain she was able to tolerate her brace when out of bed earlier this morning. She denies any leg pain numbness or tingling. Allergies Allergy/AdvReac Type Severity Reaction Status Date / Time adhesive Allergy Severe Redness of Verified 04/04/20 15:42 Skin Home Medications Medication Instructions Recorded Confirmed Type fluticasone propionate 250 1 puffs INH BID #180 ea 06/28/19 04/04/20 Rx mcg/actuation blister powder for inhalation simvastatin 10 mg tablet 10 mg PO QPM #90 tab 11/15/19 04/04/20 Rx acetaminophen [Tylenol 8 Hour] 650 mg PO Q12H PRN 11/22/19 04/04/20 History pantoprazole 40 mg PO QAM 11/22/19 04/04/20 History levothyroxine 75 mcg capsule 75 mcg PO DAILY #90 cap 01/04/20 04/04/20 Rx Patient History Medical History Asthma DOESNT USE RESC. INH GERD (gastroesophageal reflux disease) Hx of colonic polyps Hypertension ON ABOVE LIST BUT 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" Hypothyroidism Left leg cellulitis RESOLVED Osteoarthritis Right shoulder pain Surgical History History of colonoscopy History of tooth extraction Hx of bilateral cataract extraction S/P carpal tunnel release RIGHT S/P cholecystectomy S/P tonsillectomy Family History Grandfather (Paternal) Colorectal cancer Lung cancer Grandfather (Maternal) Myocardial infarction Mother Stroke Grandmother Rectal cancer Uterine cancer Denies family history of Ovarian cancer Prostate cancer Breast cancer Social History Smoking Status: Former smoker Age Started Using Tobacco: 12; Age Quit Using Tobacco: 56; packs per day: 2; Years Smoked: 44; Cigarettes Per Day: 20-40; Second Hand Exposure: No; Do You Dip or Chew Tobacco: No; Tobacco Cessation Education Requested by Patient: No Hx Alcohol Use: No Hx Substance Use: Yes Substance Use Type Other:: pain medication for pain Preferred Language: Tuvaluan Communication Ability: Effective Visual Impairment: No Limitations Hearing Ability: Normal Commercial Reporter Required: No Beliefs That Will Affect Care: None marital status: / Current Living Situation: Alone current occupational status: retired Other Information That Helps Us Care for You: No Feels Safe at Home: Yes Safety Concerns: Feels Safe At This Time Childhood Exposure to Second-Hand Smoke: Yes (mother and sister in house) Dental Care, Regularly: Yes Physical Activity Frequency: Does not Exercise Seatbelt Use: always Sunscreen Use: Yes Assistive Devices: Walker Physical Exam Physical Exam: Patient is good strength testing she is lying supine. She is comfortable. Results & Data ([facility]) Vital Signs (Past 12 Hours) Vital Signs Temp Pulse Resp BP Pulse Ox 04/05/20 07:36 36.4 C L 67 16 107/65 96 (1) Compression fracture of thoracic vertebrae, non-traumatic Encounter type: initial encounter Thoracic vertebra fracture level: T11 Qualified Code(s): M48.54XA - Collapsed vertebra, not elsewhere classified, thoracic region, initial encounter for fracture
--- NOTE | 2020-04-05 17:34 | Hospitalist Progress Note ---
Date of Service April 05, 2020 Assessment & Plan (1) Thoracic compression fracture: T 11 and L2 compression fracture, chronic T12 fracture. Spontaneous, no trauma. Acetaminophen 1g TID LAYTON Increase oxycodone to 5-10 mg as patient not getting enough relief from 5 mg TLSO brace for mobilization Lidocaine patch Calcitonin nasal spray PT/OT Vit D level 19 - start cholecalciferol 2000 IUs daily Consulted ortho spine - no surgery at this time (2) Lumbar compression fracture: As above. (3) Acid reflux: Continue pantoprazole 40mg PO daily (4) Hypothyroidism: TSH WNL in December Continue levothyroxine 75 mcg PO daily (5) Hyperlipidemia: Continue simvastatin 10mg PO daily (6) Constipation: Miralax daily - depending on opioid use may need stimulant laxative to avoid worsening constipation. (7) DVT prophylaxis: SCDs Admission and Anticipated Discharge Date Admission Date: April 04, 2020 Subjective Ms. Ragsdale is having quite a lot of back pain when she moves at all but is comfortable laying still. She does not have radiation into her legs, no loss of control of bowel or bladder, no numbness. Review of Systems Constitutional: no fever, no chills and no body aches Respiratory: no cough and no dyspnea Cardiovascular: no chest pain and no palpitations Gastrointestinal: no abdominal pain, no nausea and no vomiting Genitourinary: no dysuria and no urinary hesitancy Musculoskeletal: no back pain and no joint pain Integumentary: no rash Physical Exam Constitutional: WD/WN, vitals as above Respiratory: normal respiratory effort, lungs clear to auscultation Cardiovascular: RRR, no murmur, no edema Gastrointestinal (Abdomen): Inspection/Auscultation: abdomen normal to inspection and normal bowel sounds; abdomen not distended Percussion/Palpation: abdomen soft; abdomen nontender Musculoskeletal: Extremities: extremities normal to inspection Skin: no rashes, warm and dry Neurologic: moves all extremities and awake Psychiatric: A+Ox3, euthymic affect Results & Data Results & Data ([facility]) Vital Signs (Past 12 Hours) Vital Signs Temp Pulse Pulse Resp BP Pulse Ox 04/05/20 15:05 36.4 C L 77 18 134/71 97 04/05/20 07:36 36.4 C L 67 16 107/65 96 PG Care Time/CCT Total # of Minutes Spent Total Time Spent with Patient: Total time spent is greater than 50% in coordination of care (as documented) at patient's floor/unit and/or counseling patient: Coding Level of Care Code 06717 Subseq Hosp Care Lvl 2 Diagnoses Thoracic compression fracture S22.080A Encounter type: initial encounter Thoracic vertebra fracture level: T12 Lumbar compression fracture S32.000A Acid reflux K21.9 Hypothyroidism E03.9 Hyperlipidemia E78.5 Constipation K59.00 DVT prophylaxis Z29.9 (1) Thoracic compression fracture Encounter type: initial encounter Thoracic vertebra fracture level: T12 Qualified Code(s): S22.080A - Wedge compression fracture of T11-T12 vertebra, initial encounter for closed fracture
[2020-04-05] MEDS: CALCITONIN SALMON NA 200 IU/AC 3.7 ML BTL SCH ×2 (20:12)
[2020-04-06] MEDS: LEVOTHYROXINE SODIUM 75 MCG TABLET PO SCH (06:17)
[2020-04-06] MEDS: oxyCODONE HCL IR 5 MG TAB (IMMEDIATE RELEASE) PO PRN ×3 (07:45→20:30)
--- NOTE | 2020-04-06 08:25 | Hospitalist Progress Note ---
Date of Service April 06, 2020 Assessment & Plan (1) Thoracic compression fracture: T 11 and L2 compression fracture, chronic T12 fracture. Spontaneous, no trauma. Acetaminophen 1g TID LAYTON Increase oxycodone to 5-10 mg TLSO brace for mobilization Lidocaine patch Calcitonin nasal spray PT/OT Vit D level 19 - start cholecalciferol 2000 IUs daily Consulted ortho spine - no surgery at this time Planned conversion to admission with transfer to SNF Consultation to be placed by case management. (2) Lumbar compression fracture: As above. (3) Acid reflux: Continue pantoprazole 40mg PO daily (4) Hypothyroidism: TSH WNL in December Continue levothyroxine 75 mcg PO daily (5) Hyperlipidemia: Continue simvastatin 10mg PO daily (6) Constipation: Miralax daily - depending on opioid use may need stimulant laxative to avoid worsening constipation. Milk of magnesia added for p.r.n. use for constipation (7) DVT prophylaxis: [facility] Admission and Anticipated Discharge Date Admission Date: April 04, 2020 Subjective pt is doing well overnight. Pain is improving with medications. able to sit and move with current medications. appetite is low and mild nausea this am after breakfast. no BM today, taking prn meds Review of Systems Review of Systems: All systems reviewed & are unremarkable except as noted in Subjective Physical Exam Physical Exam: Constitutional: WD/WN, vitals as above Respiratory: Effort normal, CTA B/L CV: RRR, no murmur, no edema Abdomen: normal bowel sounds, soft, nontender, no hepatosplenomegaly Results & Data Results & Data ([facility]) Vital Signs (Past 12 Hours) Vital Signs Temp Pulse Resp BP Pulse Ox 04/06/20 08:08 36.5 C 78 16 138/71 98 04/05/20 23:23 36.9 C 68 16 126/74 95 Laboratory Results Laboratory Results - last 24 hr 04/05/20 12:49 Lactate 0.9 Medications Administered Current Inpatient Medications Acetaminophen (Acetaminophen 500 Mg Tab) 1,000 mg PO TID LAYTON Stop: 05/04/20 22:30 Last Admin: 04/05/20 20:11 Dose: 1,000 mg Documented by: Al Hydrox/Mg Hydrox/Simethicone (Aluminum/Magnesium Susp 30 Ml Udc) 30 ml PO Q6H PRN PRN Reason: Dyspepsia Stop: 05/04/20 22:30 Calcitonin Dalton (Calcitonin Dalton Na 200 Iu/Ac 3.7 Ml Btl) 1 sprays NA HS [facility] Stop: 05/04/20 22:30 Last Admin: 04/05/20 20:12 Dose: 1 sprays Documented by: Fluticasone/Vilanterol (Fluticasone/Vilanterol 100/25mcg 14 Puffs/Inhaler) 1 puffs INH DAILY [facility] Stop: 05/05/20 08:59 Last Admin: 04/05/20 08:05 Dose: 1 puffs Documented by: Hydromorphone HCl (Hydromorphone Inj 0.5 Mg/0.5 Ml Syr) 0.5 mg IV Q4H PRN PRN Reason: Severe Pain Stop: 04/18/20 22:30 Levothyroxine Sodium ([facility]othy[facility]ine Sodium 75 Mcg Tablet) [facility]: 05/05/20 06:29 Last Admin: 04/06/20 06:17 Dose: 75 mcg Documented by: Lidocaine (Lidocaine 5% 1 Patch) 1 patch TD DAILY@0900 [facility] Stop: 05/05/20 08:59 Last Admin: 04/05/20 08:58 Dose: 1 patch Documented by: Miscellaneous (Remove Lidoderm Patch) 1 ea N/A [facility] Stop: 05/05/20 20:59 Last Admin: 04/05/20 20:12 Dose: 1 ea Documented by: Ondansetron HCl (Ondansetron Inj 2 Mg/Ml 2 Ml Vial) 4 mg IV Q6H PRN PRN Reason: Nausea Stop: 05/04/20 22:30 Oxycodone HCl (Oxycodone Hcl Ir 5 Mg Tab (Immediate Release)) 5 - 10 mg PO Q4H PRN PRN Reason: Pain Stop: 04/18/20 22:30 Last Admin: 04/06/20 07:45 Dose: 10 mg Documented by: Pantoprazole Sodium (Pantoprazole 40 Mg Tab) 40 mg PO QAM [facility] Stop: 05/05/20 08:59 Last Admin: 04/05/20 08:05 Dose: 40 mg Documented by: Polyethylene Glycol (Polyethylene (Miralax) 17 Gm Pack) 17 gm PO DAILY PRN PRN Reason: Constipation Stop: 05/04/20 22:30 Last Admin: 04/05/20 17:32 Dose: 17 gm Documented by: Polyethylene Glycol (Polyethylene (Miralax) 17 Gm Pack) 17 gm PO QAM [facility] Stop: 05/05/20 08:59 Last Admin: 04/05/20 08:00 Dose: Not Given Documented by: Simvastatin (Simvastatin 10 Mg Tab) 10 mg PO QPM [facility] Stop: 05/04/20 22:30 Last Admin: 04/05/20 20:12 Dose: 10 mg Documented by: Vitamin D (Cholecalciferol 1,000 Units 25 Mcg Tab) 2,000 units PO QAM [facility] Stop: 05/06/20 08:59 PG Care Time/CCT Total # of Minutes Spent Total Time Spent with Patient: Total time spent is greater than 50% in coordination of care (as documented) at patient's floor/unit and/or counseling patient: Coding Level of Care Code 82333 Subseq Hosp Care Lvl 2 Diagnoses Thoracic compression fracture S22.080A Encounter type: initial encounter Thoracic vertebra fracture level: T12 Lumbar compression fracture S32.000A Acid reflux K21.9 Hypothyroidism E03.9 Hyperlipidemia E78.5 Constipation K59.00 DVT prophylaxis Z29.9 (1) Thoracic compression fracture Encounter type: initial encounter Thoracic vertebra fracture level: T12 Qualified Code(s): S22.080A - Wedge compression fracture of T11-T12 vertebra, initial encounter for closed fracture
[2020-04-06] MEDS: ACETAMINOPHEN 500 MG TAB PO SCH ×3 (09:22→20:32)
[2020-04-06] MEDS: CHOLECALCIFEROL 1,000 UNITS 25 MCG TAB PO SCH (09:22)
[2020-04-06] MEDS: FLUTICASONE/VILANTEROL 100/25MCG 14 PUFFS/INHALER INH SCH (09:22)
[2020-04-06] MEDS: POLYETHYLENE (MIRALAX) 17 GM PACK PO SCH (09:22)
[2020-04-06] MEDS: PANTOprazole 40 MG TAB PO SCH (09:23)
[2020-04-06] MEDS: LIDOCAINE 5% 1 PATCH TD SCH (09:24)
[2020-04-06] MEDS ORDERED: MAGNESIUM HYDROXIDE SUSP 30 ML UDC PO PRN (13:25)
[2020-04-06] MEDS: CALCITONIN SALMON NA 200 IU/AC 3.7 ML BTL SCH (20:31)
[2020-04-06] MEDS: SIMVASTATIN 10 MG TAB PO SCH (20:32)
[2020-04-07] MEDS: oxyCODONE HCL IR 5 MG TAB (IMMEDIATE RELEASE) PO PRN ×4 (00:21→23:29)
[2020-04-07] MEDS: LEVOTHYROXINE SODIUM 75 MCG TABLET PO SCH (05:33)
[2020-04-07] MEDS: LIDOCAINE 5% 1 PATCH TD SCH (08:47)
[2020-04-07] MEDS ORDERED: ONDANSETRON 4 MG OD TAB PO PRN (09:41)
[2020-04-07] MEDS ORDERED: COUGH DROP (SUGAR FREE) LOZ 24 LOZ/1 BOX BUCCAL ONE (10:18)
[2020-04-07] MEDS: ACETAMINOPHEN 500 MG TAB PO SCH ×3 (10:21→19:47)
[2020-04-07] MEDS: FAMOTIDINE 20 MG TAB PO SCH ×2 (10:21→19:47)
[2020-04-07] MEDS: FLUTICASONE/VILANTEROL 100/25MCG 14 PUFFS/INHALER INH SCH (10:22)
[2020-04-07] MEDS: PANTOprazole 40 MG TAB PO SCH (10:22)
[2020-04-07] MEDS: POLYETHYLENE (MIRALAX) 17 GM PACK PO SCH ×2 (10:22→10:31)
[2020-04-07] MEDS: CHOLECALCIFEROL 1,000 UNITS 25 MCG TAB PO SCH (10:22)
--- NOTE | 2020-04-07 13:22 | Hospitalist Progress Note ---
Date of Service April 07, 2020 Assessment & Plan (1) Thoracic compression fracture: T 11 and L2 compression fracture, chronic T12 fracture. Spontaneous, no trauma. Pain improved. Acetaminophen 1g TID LAYTON. Oxycodone to 5-10 mg PRN. TLSO brace for mobilization Lidocaine patch Calcitonin nasal spray PT/OT Vit D level 19 - start cholecalciferol 2000 IUs daily Consulted ortho spine - no surgery at this time Planned transfer to SNF at discharge. [facility] management [facility] (2) Lumbar compression fracture: As above. (3) Acid reflux: Continue pantoprazole 40mg PO daily. Will add famotidine 20mg PO BID d/t significant nausea after eating. (4) Hypothyroidism: TSH WNL in December Continue levothyroxine 75 mcg PO daily (5) Hyperlipidemia: Continue simvastatin 10mg PO daily (6) Constipation: Has not had a BM in 6 days. Possibly contributing to nausea. Miralax daily - depending on opioid use may need stimulant laxative to avoid worsening constipation. Milk of magnesia PRN. Zofran 4mg soltabs ordered for nausea. (7) DVT prophylaxis: SCDs Disposition: Plan for d/c to SNF when available. Admission and Anticipated Discharge Date Admission Date: April 06, 2020 Subjective 79 yo female admitted with T11 and L2 fractures. Patient denies any pain this m orning. She states she is tolerating the TLSO brace well. She does c/o significant nausea after she eats. She has not had a BM in 6 days. She has an order for Zofran, but no IV in place. Patient takes omeprazole daily. Patient pending SNF placement for rehab. Review of Systems Constitutional: no fever and no chills Eyes: no worsening vision Ear, Nose, Mouth, Throat: no dizziness Respiratory: no dyspnea Cardiovascular: no chest pain Gastrointestinal: + nausea, + vomiting and + constipation; no abdominal pain hiccups Genitourinary: no dysuria Physical Exam Physical Exam: Temp Pulse Resp BP Pulse Ox 36.7 C 78 16 129/53 L 96 04/07/20 07:55 04/07/20 07:55 04/07/20 07:55 04/07/20 07:55 04/07/20 07:55 Patient is afebrile. Vital signs stable. Constitutional: average body habitus; no acute distress ENMT: Ears: no hearing impairment Neck: trachea midline, no thyromegaly Respiratory: normal respiratory effort, lungs clear to auscultation Cardiovascular: RRR, no murmur, no edema Gastrointestinal (Abdomen): Inspection/Auscultation: normal bowel sounds Percussion/Palpation: abdomen soft; abdomen nontender Psychiatric: A+Ox3, euthymic affect Results & Data Results & Data ([facility]) Vital Signs (Past 12 Hours) Vital Signs Temp Pulse Resp BP Pulse Ox 04/07/20 07:55 36.7 C 78 16 129/53 L 96 PG Care Time/CCT Total # of Minutes Spent Total Time Spent with Patient: Total time spent is greater than 50% in coordination of care (as documented) at patient's floor/unit and/or counseling patient: Coding Level of Care Code 06592 Subseq Hosp Care Lvl 2 History Expanded Problem Focused Exam Expanded Problem Focused Diagnoses Thoracic compression fracture S22.080A Encounter type: initial encounter Thoracic vertebra fracture level: T12 Lumbar compression fracture S32.000A Acid reflux K21.9 Hypothyroidism E03.9 Hyperlipidemia E78.5 Constipation K59.00 DVT prophylaxis Z29.9 (1) Thoracic compression fracture Encounter type: initial encounter Thoracic vertebra fracture level: T12 Qualified Code(s): S22.080A - Wedge compression fracture of T11-T12 vertebra, in itial encounter for closed fracture
[2020-04-07] MEDS: SIMVASTATIN 10 MG TAB PO SCH (19:47)
[2020-04-07] MEDS: CALCITONIN SALMON NA 200 IU/AC 3.7 ML BTL SCH (19:48)
[2020-04-08] MEDS: LEVOTHYROXINE SODIUM 75 MCG TABLET PO SCH (05:20)
[2020-04-08] MEDS: oxyCODONE HCL IR 5 MG TAB (IMMEDIATE RELEASE) PO PRN ×3 (05:20→20:25)
--- NOTE | 2020-04-08 08:21 | Hospitalist Progress Note ---
Date of Service April 08, 2020 Assessment & Plan (1) Thoracic compression fracture: * T 11 and L2 compression fracture, chronic T12 fracture. * Spontaneous, no trauma. * Acetaminophen 1g TID LAYTON * Increase oxycodone to 5-10 mg * TLSO brace for mobilization -- will ask nursing on education/placement * Lidocaine patch * Calcitonin nasal spray * PT/OT with rec for rehab -- CM following and ref sent to [place] [facility]. Still awaiting placement at this time * Vit D level 19 - started cholecalciferol 2000 IUs daily and will continue * Will need DEXA outpatient * Consulted ortho spine - no surgery at this time * SNF at discharge Constipation/Abdominal Pain/Nausea/Vomiting * Likely n/v from constipation * Continues to pass gas * Miralax scheduled * Added dulcolax AL * Phenergan added PO prn for nausea * KUB pending * Continue to monitor (2) Lumbar compression fracture: * As above. (3) Acid reflux: * Continue pantoprazole 40mg PO daily * Added pepcid 20mg BID on 04/07 (4) Hypothyroidism: * TSH WNL in December but will repeat with AM labs * Continue levothyroxine 75 mcg PO daily (5) Hyperlipidemia: * Continue simvastatin 10mg PO daily (6) Constipation: * Miralax daily - depending on opioid use may need stimulant laxative to avoid worsening constipation. * Milk of magnesia added for p.r.n. use for constipation * Added dulcolax as above. KUB pending (7) Asthma: * Fluticasone * No exacerbation * 96% on RA * Continue to monitor (8) DVT prophylaxis: * SCDs Dispo: awaiting placement Admission and Anticipated Discharge Date Admission Date: April 06, 2020 Subjective Patient evaluated this morning. Having nausea and just had zofran. Ate coffee and toast this morning. Had emesis for approximately 100-125cc tea colored, likely from recent coffee. No blood. Feeling better after emesis. Will order phenergan PO as patient without IV access. Has not had brace on much due to not being able to place on correctly. WIll have nursing show patient. Pain currently controlled. Had been passing gas but no BM in 6-7 days. She states she typically doesn't get worried unless it's been about a week. Just got a dulcolax suppository but not walked the halls. Discussed this will help to get her bowels moving. CM working on rehab at discharge. No fever or chills (although she notes she is always cold), no chest pain, shortness of breath, cough, abdominal pain, dysuria at this time. She did have episode of emesis yesterday morning as well around the same time but nothing mor e yesterday and was able to tolerate chicken last night for dinner without difficulty. Will order KUB to ensure no obstruction given pain medication usage. She has been pushing fluids but not hungry at this time due to nausea. Hopeful phenergan effective and will improve her appetite with symptom control as she would like to hold off on IV placement at this time. Discussed low vitamin D levels. She had been having back issues for months and recently completed steroid dose pack. Has been off fosamax for several years but feels she may need to reconsider in the future as well as a DEXA scan. To be done outpatient. Review of Systems Review of Systems: All systems reviewed & are unremarkable except as noted in HPI & below Physical Exam Constitutional: well developed and well nourished; no acute distress Eyes: + anicteric sclerae and PERRL ENMT: external ear and nose normal, oropharynx normal Ears: + hearing impairment Neck: trachea midline, no thyromegaly Respiratory: normal respiratory effort, lungs clear to auscultation Cardiovascular: RRR, no murmur, no edema Gastrointestinal (Abdomen): normal bowel sounds, soft, nontender, no hepatosplenomegaly Inspection/Auscultation: abdomen normal to inspection and normal bowel sounds; abdomen not distended Percussion/Palpation: abdomen soft; abdomen nontender Musculoskeletal: no cyanosis or clubbing, extremities motor strength 5/5 (b/l LE strength 5/5 throughout) Spine: + limited thoraco-lumbar ROM (due to pain), + pain with thoraco-lumbar ROM, + thoracic spinal tenderness (main pain over T11/12 on movement, mainly paraspinal pain on exam), + lumbar spinal tenderness and + straight leg raise positive (b/l); no sacral tenderness Extremities: extremities normal to inspection Skin: no rashes, warm and dry Neurologic: moves all extremities and awake; no focal motor deficits and not confused Psychiatric: A+Ox3, euthymic affect Genitourinary: no downs Results & Data Results & Data ([facility]) Vital Signs (Past 12 Hours) Vital Signs Temp Pulse Resp BP Pulse Ox 04/08/20 07:19 36.7 C 61 16 121/67 96 04/07/20 23:56 36.5 C 75 18 152/76 H 96 Laboratory Results 04/08/20 04/08/20 Range/Units 09:30 09:30 WBC 4.71 L (4.8-10.8) K/uL RBC 5.04 (4.2-5.4) M/uL Hgb 14.5 (12.0-16.0) g/dL Hct 44.5 (37-47) % MCV 88.3 (80-100) fL MCH 28.8 (25-34) pg MCHC 32.6 (32-36) g/dL RDW Std Deviation 47.6 H (36.4-46.3) fL RDW Coeff of Jean Carlos 14.8 H (11.5-14.5) % Plt Count 149 (130-400) K/uL MPV 8.7 (7.4-10.4) fL Sodium 140 (136-145) mmol/L Potassium 3.5 (3.5-5.1) mmol/L Chloride 107 (98-107) mmol/L Carbon Dioxide 30 (21-32) mmol/L Anion Gap 3.0 (3-11) BUN 8 (7-18) mg/dl Creatinine 0.87 (0.6-1.2) mg/dl Est Cr Clr Drug Dosing 56.0 ml/min Est GFR ( Amer) 72.4 Est GFR (Non-Af Amer) 62.5 BUN/Creatinine Ratio 8.9 L (10-20) Glucose 127 H (70-99) mg/dl Calcium 8.7 (8.5-10.1) mg/dl PG Care Time/CCT Total # of Minutes Spent Total Time Spent with Patient: Total time spent is greater than 50% in coordination of care (as documented) at patient's floor/unit and/or counseling patient: Coding Level of Care Code 57875 Subseq Hosp Care Lvl 2 Diagnoses Thoracic compression fracture S22.080A Encounter type: initial encounter Thoracic vertebra fracture level: T12 Lumbar compression fracture S32.000A Acid reflux K21.9 Hypothyroidism E03.9 Hyperlipidemia E78.5 Constipation K59.00 Asthma J45.909 DVT prophylaxis Z29.9 (1) Thoracic compression fracture Encounter type: initial encounter Thoracic vertebra fracture level: T12 Qualified Code(s): S22.080A - Wedge compression fracture of T11-T12 vertebra, initial encounter for closed fracture
[2020-04-08] MEDS ORDERED: bisacodyL 5 MG TABEC PO ONE ×2 (08:25→10:45)
[2020-04-08] MEDS: PANTOprazole 40 MG TAB PO SCH (08:59)
[2020-04-08] MEDS: FLUTICASONE/VILANTEROL 100/25MCG 14 PUFFS/INHALER INH SCH (08:59)
[2020-04-08] MEDS: CHOLECALCIFEROL 1,000 UNITS 25 MCG TAB PO SCH (09:00)
[2020-04-08] MEDS: FAMOTIDINE 20 MG TAB PO SCH ×2 (09:00→20:24)
[2020-04-08] MEDS: ACETAMINOPHEN 500 MG TAB PO SCH ×3 (09:00→20:23)
[2020-04-08] MEDS: LIDOCAINE 5% 1 PATCH TD SCH (09:01)
[2020-04-08] MEDS: POLYETHYLENE (MIRALAX) 17 GM PACK PO SCH (09:02)
[2020-04-08 09:45] LABS: Hematocrit (blood only) 44.5 % (37-47); Hemoglobin 14.5 g/dL (12.0-16.0); Mean Corpuscular Hemoglobin 28.8 pg (25-34); Mean Corpuscular Hgb Conc 32.6 g/dL (32-36); Mean Corpuscular Volume 88.3 fL (80-100); Mean Platelet Volume 8.7 fL (7.4-10.4); Platelet Count 149 K/uL (130-400); RDW Coefficient of Variation 14.8 % (11.5-14.5); RDW Standard Deviation 47.6 fL (36.4-46.3); Red Blood Count 5.04 M/uL (4.2-5.4); White Blood Count 4.71 K/uL (4.8-10.8)
[2020-04-08 10:10] LABS: BUN Creatinine Ratio 8.9 (10-20); Calcium 8.7 mg/dl (8.5-10.1); Est GFR (African American) 72.4; Est GFR (Non-African American) 62.5; Potassium 3.5 mmol/L (3.5-5.1)
[2020-04-08] MEDS ORDERED: bisacodyL 10 MG SUPP PR STA (10:38)
[2020-04-08] MEDS ORDERED: PROMETHAZINE HCL 12.5 MG/10 ML UDP PO PRN (11:26)
--- NOTE | 2020-04-08 12:20 | Discharge Summary ---
Date of Service April 08, 2020 Admission HPI Per Admitting Provider Alejandra Ragsdale is an 79 year old female with prior history of osteoporosis who comes to the ER today with intractable back pain. She has been having ongoing issues with intermittent low back pain in February but was doing better when she saw her PCP just 6 days previously after a course of prednisone, baclofen and tramadol. She denies any trauma but cannot remember exactly what she was doing when it came on again. Pain in centre of her lower back. No radiation. Severity 10/10 on any movement, currently 0/10 when she doesn't move. No radiation down legs, incontinence of bowels/bladder or perianal numbness. She had been using a walker to help since her back pain with . She lives by herself and is currently unable to mobilize with the pain. Of note she has a significant history of osteoporosis and was on Fosamax for "a number of years". She reports having a repeat DEXA scan showing osteopenia and given the duration of being on Fosamax this was subsequently discontinued (she thinks approximately 10 years years ago. Only fractures since have been due to a fall. She also reports an episode of back spasms in August this year with in hindsight was probably the start of her compression fractures. In the ER lumbar MRI showed acute superior endplate compression deformities of T11 and L2 with progressively worsened severe T12 compression fracture with 4mm retropulsion resulting in mild central canal stenosis. She was referred to medicine for admission and ongoing management of compression fractures and intractable back pain. Discharge Data Allergies Allergy/AdvReac Type Severity Reaction Status Date / Time adhesive Allergy Intermediate Redness of Verified 04/07/20 13:32 Skin Consultations 04/04/20 18:03 ED Decision to Admit Stat 04/04/20 22:31 Consult Orthopedic Surgery Routine Ordered Studies 04/04/20 15:09 MR lumbar spine wo con Stat 04/04/20 15:11 MR pelvis wo con Stat Discharge Plan Discharge Items Reason For Visit: INTRACTABLE BACK PAIN, THORACOLUMBAR Follow-up/Referrals: Dania Pacheco MD [Primary Care Provider] - Medications and DC Order Prescriptions: No Action fluticasone propionate 250 mcg/actuation blister with device 1 puffs INH BID Qty: 180 RF: 3 simvastatin 10 mg tablet 10 mg PO QPM Qty: 90 RF: 1 levothyroxine 75 mcg capsule 75 mcg PO DAILY Qty: 90 RF: 3 pantoprazole 40 mg tablet,delayed release (DR/EC) 40 mg PO QAM RF: 0 acetaminophen [Tylenol 8 Hour] 650 mg Tablet Extended Release 650 mg PO Q12H PRN (Reason: Pain) RF: 0 Admission Data Admit Date/Time: 04/06/20 09:55 Attending Provider: Bobby Geiger Admit Provider: Case Ragsdale Primary Care Provider: Dania Pacheco Other Providers: Heath Rosas ; [facility] Healthcare ; Rhett Bansal ; Мария Bartholomew [place] ; [facility], Coding
--- NOTE | 2020-04-08 12:34 | XRay Report ---
XR KUB/Abdomen 1 view CLINICAL HISTORY: Nausea, vomiting, constipation COMPARISON STUDY: No previous studies for comparison. FINDINGS: There is mild gaseous distention of the colon down to the level of the sigmoid. A distal ob struction cannot be excluded on the basis of this study. There are surgical clips in the right upper quadrant suggesting a prior cholecystectomy. There is a 3 mm calcification projected over the left renal shadow. A renal calculus cannot be excluded. IMPRESSION: 1. Mild gaseous distention of the colon down to the level of the sigmoid. ACT 112: Negative or not required by law. Electronically signed by: Sachin Delgado M.D. 04/08/2020 12:32 PM
[2020-04-08 17:37] LABS: Appearance Urine Clear (Clear); Bilirubin Urine Negative (Negative); Blood Urine Trace (Negative); Color Urine Yellow; Glucose Urine UA Negative (Negative); Ketones Urine Trace (Negative); Leukocyte Esterase Urine Negative (Negative); Nitrite Urine Negative (Negative); Protein Urine Negative (Negative); Specific Gravity Urine 1.008 (1.000-1.030); Urobilinogen Urine Negative (Negative)
[2020-04-08 18:09] LABS: Epithelial Cell Urine 0-5 /lpf (0-5); RBC Urine 0-4 /hpf (0-4); WBC Urine 0-5 /hpf (0-5)
[2020-04-08 18:10] LABS: Bacteria Urine Negative (Negative)
[2020-04-08] MEDS: SODIUM CHLORIDE 0.9% 1000ML 1,000 ML IV SCH (18:14)
[2020-04-08] MEDS: DOCUSATE SODIUM 100 MG CAP PO SCH (20:23)
[2020-04-08] MEDS: SIMVASTATIN 10 MG TAB PO SCH (20:23)
[2020-04-08] MEDS: CALCITONIN SALMON NA 200 IU/AC 3.7 ML BTL SCH (20:25)
[2020-04-09] MEDS: oxyCODONE HCL IR 5 MG TAB (IMMEDIATE RELEASE) PO PRN ×4 (02:07→21:10)
[2020-04-09] MEDS: SODIUM CHLORIDE 0.9% 1000ML 1,000 ML IV SCH ×2 (02:10→10:15)
[2020-04-09] MEDS: LEVOTHYROXINE SODIUM 75 MCG TABLET PO SCH (06:12)
[2020-04-09 07:21] LABS: Hematocrit (blood only) 43.9 % (37-47); Hemoglobin 14.7 g/dL (12.0-16.0); Mean Corpuscular Hemoglobin 29.3 pg (25-34); Mean Corpuscular Hgb Conc 33.5 g/dL (32-36); Mean Corpuscular Volume 87.5 fL (80-100); Mean Platelet Volume 8.7 fL (7.4-10.4); Platelet Count 186 K/uL (130-400); RDW Coefficient of Variation 14.9 % (11.5-14.5); RDW Standard Deviation 47.8 fL (36.4-46.3); Red Blood Count 5.02 M/uL (4.2-5.4); White Blood Count 4.08 K/uL (4.8-10.8)
[2020-04-09 07:54] LABS: BUN Creatinine Ratio 7.4 (10-20); Calcium 9.2 mg/dl (8.5-10.1); Est GFR (African American) 75.5; Est GFR (Non-African American) 65.2; Magnesium 2.2 mg/dl (1.8-2.4); Potassium 3.7 mmol/L (3.5-5.1)
[2020-04-09] MEDS: FLUTICASONE/VILANTEROL 100/25MCG 14 PUFFS/INHALER INH SCH (08:00)
[2020-04-09] MEDS: DOCUSATE SODIUM 100 MG CAP PO SCH ×2 (08:00→21:12)
[2020-04-09] MEDS: FAMOTIDINE 20 MG TAB PO SCH ×2 (08:01→21:11)
[2020-04-09] MEDS: POLYETHYLENE (MIRALAX) 17 GM PACK PO SCH (08:01)
[2020-04-09] MEDS: PANTOprazole 40 MG TAB PO SCH (08:01)
[2020-04-09] MEDS: ACETAMINOPHEN 500 MG TAB PO SCH ×3 (08:01→21:12)
[2020-04-09] MEDS: CHOLECALCIFEROL 1,000 UNITS 25 MCG TAB PO SCH (08:02)
[2020-04-09] MEDS: LIDOCAINE 5% 1 PATCH TD SCH (08:02)
[2020-04-09 08:04] LABS: Thyroid Stimulating Hormone 7.1 uIu/ml (0.300-4.500)
[2020-04-09 08:18] LABS: T4 Free Thyroxine 1.48 ng/dl (0.8-1.6)
--- NOTE | 2020-04-09 08:40 | Hospitalist Progress Note ---
Date of Service April 09, 2020 Assessment & Plan (1) Thoracic compression fracture: * T 11 and L2 compression fracture, chronic T12 fracture. * Spontaneous, no trauma. * Acetaminophen 1g TID [place] * Increase oxycodone to 5-10 mg * TLSO brace for mobilization -- will ask nursing on education/placement * Lidocaine patch * Calcitonin nasal spray * PT/OT with rec for rehab -- CM following and ref sent to [facility] and [facility]. Still awaiting placement at this time * Vit D level 19 - started cholecalciferol 2000 IUs daily and will continue * Will need DEXA outpatient * Consulted ortho spine - no surgery at this time * SNF at discharge ([facility]) -- hopefully tomorrow Constipation/Abdominal Pain/Nausea/Vomiting * Likely n/v from constipation. Recent c-scope Nov 2019 with hyperplastic polyp * Continues to pass gas * Miralax scheduled * Added dulcolax AL, IVF @ 125cc/hr (now discontinued) * Phenergan added PO prn for nausea * KUB without obstruction * Was placed on IVF and patient had 3BM with resolution of n/v/pain * Continue bowel regimen while on pain medication to prevent issues at discharge (2) Lumbar compression fracture: * As above. (3) Acid reflux: * Continue pantoprazole 40mg PO daily * Added pepcid 20mg BID on 04/07 -- can continue at d/c (4) Hypothyroidism: * TSH WNL in December but will repeat with AM labs -- TSH elevated at 7.1 but FT4 wnl, likely reactive. Would repeat TFT in 6 weeks outpatient * Continue levothyroxine 75 mcg PO daily (5) Hyperlipidemia: * Continue simvastatin 10mg PO daily (6) Constipation: * Miralax daily - depending on opioid use may need stimulant laxative to avoid worsening constipation. * Milk of magnesia added for p.r.n. use for constipation * Added dulcolax as above. * Continue colace * RESOLVED (7) Asthma: * Fluticasone * No exacerbation * 93% on RA, no wheezing on examination * Continue to monitor (8) DVT prophylaxis: * SCDs * Ambulation encouraged Dispo: awaiting placement [facility] hopefully tomorrow with family. Auth pending Admission and Anticipated Discharge Date Admission Date: April 06, 2020 Subjective Patient evaluated at lunch. 3BM yesterday. No further n/v. Eating without difficulty. Walked with therapy and utilized brace today. She states this has provided more comfort. Pain tolerable with ordered medications. Discussed [facility] possibly with a bed today and will arrange transport if possible. Patient voices she would prefer tomorrow with family but understands that may not be possible if bed available today. No fever, chills, chest pain, shortness of breath, n/v, abdominal pain, dysuria, frequency. States she is making adequate urine and would like to hold off on renal US at this time and follow up outpatient if possible. Review of Systems Review of Systems: All systems reviewed & are unremarkable except as noted in HPI & below Physical Exam Constitutional: well developed and well nourished; no acute distress Eyes: + anicteric sclerae and PERRL ENMT: external ear and nose normal, oropharynx normal Ears: + hearing impairment Neck: trachea midline, no thyromegaly Respiratory: normal respiratory effort, lungs clear to auscultation Cardiovascular: RRR, no murmur, no edema Gastrointestinal (Abdomen): normal bowel sounds, soft, nontender, no hepatosplenomegaly Inspection/Auscultation: abdomen normal to inspection and normal bowel sounds; abdomen not distended Percussion/Palpation: abdomen soft; abdomen nontender Musculoskeletal: no cyanosis or clubbing, extremities motor strength 5/5 (b/l LE strength 5/5 throughout) Spine: + limited thoraco-lumbar ROM (due to pain), + pain with thoraco-lumbar ROM, + thoracic spinal tenderness (main pain over T11/12 on movement, mainly paraspinal pain on exam), + lumbar spinal tenderness and + straight leg raise positive (b/l); no sacral tenderness Extremities: extremities normal to inspection Skin: no rashes, warm and dry Neurologic: moves all extremities and awake; no focal motor deficits and not confused Psychiatric: A+Ox3, euthymic affect Results & Data Results & Data ([facility]) Vital Signs (Past 12 Hours) Vital Signs Temp Pulse Resp BP Pulse Ox 04/09/20 07:06 36.7 C 84 17 153/74 H 93 04/08/20 23:08 36.6 C 69 14 143/69 H 93 Laboratory Results 04/09/20 04/09/20 04/08/20 Range/Units 07:05 07:05 17:25 WBC 4.08 L (4.8-10.8) K/uL RBC 5.02 (4.2-5.4) M/uL Hgb 14.7 (12.0-16.0) g/dL Hct 43.9 (37-47) % MCV 87.5 (80-100) fL MCH 29.3 (25-34) pg MCHC 33.5 (32-36) g/dL RDW Std Deviation 47.8 H (36.4-46.3) fL RDW Coeff of Jean Carlos 14.9 H (11.5-14.5) % Plt Count 186 (130-400) K/uL MPV 8.7 (7.4-10.4) fL Sodium 139 (136-145) mmol/L Potassium 3.7 (3.5-5.1) mmol/L Chloride 109 H (98-107) mmol/L Carbon Dioxide 24 (21-32) mmol/L Anion Gap 7.0 (3-11) BUN 6 L (7-18) mg/dl Creatinine 0.84 (0.6-1.2) mg/dl Est Cr Clr Drug Dosing 58.0 ml/min Est GFR ( Amer) 75.5 Est GFR (Non-Af Amer) 65.2 BUN/Creatinine Ratio 7.4 L (10-20) Glucose 87 (70-99) mg/dl Calcium 9.2 (8.5-10.1) mg/dl Magnesium 2.2 (1.8-2.4) mg/dl TSH 7.100 H (0.300-4.500) uIu/ml Free T4 1.48 (0.8-1.6) ng/dl Urine Color Yellow Urine Appearance Clear (Clear) Urine pH 7.0 (4.5-7.5) Ur Specific [place] 1.008 (1.000-1.030) Urine Protein Negative (Negative) Urine Glucose (UA) Negative (Negative) Urine Ketones Trace H (Negative) Urine Blood Trace H (Negative) Urine Nitrite Negative (Negative) Urine Bilirubin Negative (Negative) Urine Urobilinogen Negative (Negative) Ur Leukocyte Esterase Negative (Negative) Urine RBC 0-4 (0-4) /hpf Urine WBC 0-5 (0-5) /hpf Ur Epithelial Cells 0-5 (0-5) /lpf Urine Bacteria Negative (Negative) 04/08/20 04/08/20 Range/Units 09:30 09:30 WBC 4.71 L (4.8-10.8) K/uL RBC 5.04 (4.2-5.4) M/uL Hgb 14.5 (12.0-16.0) g/dL Hct 44.5 (37-47) % MCV 88.3 (80-100) fL MCH 28.8 (25-34) pg MCHC 32.6 (32-36) g/dL RDW Std Deviation 47.6 H (36.4-46.3) fL RDW Coeff of Jean Carlos 14.8 H (11.5-14.5) % Plt Count 149 (130-400) K/uL MPV 8.7 (7.4-10.4) fL Sodium 140 (136-145) mmol/L Potassium 3.5 (3.5-5.1) mmol/L Chloride 107 (98-107) mmol/L Carbon Dioxide 30 (21-32) mmol/L Anion Gap 3.0 (3-11) BUN 8 (7-18) mg/dl Creatinine 0.87 (0.6-1.2) mg/dl Est Cr Clr Drug Dosing 56.0 ml/min Est GFR ( Amer) 72.4 Est GFR (Non-Af Amer) 62.5 BUN/Creatinine Ratio 8.9 L (10-20) Glucose 127 H (70-99) mg/dl Calcium 8.7 (8.5-10.1) mg/dl Magnesium (1.8-2.4) mg/dl TSH (0.300-4.500) uIu/ml Free T4 (0.8-1.6) ng/dl Urine Color Urine Appearance (Clear) Urine pH (4.5-7.5) Ur Specific [place] (1.000-1.030) Urine Protein (Negative) Urine Glucose (UA) (Negative) Urine Ketones (Negative) Urine Blood (Negative) Urine Nitrite (Negative) Urine Bilirubin (Negative) Urine Urobilinogen (Negative) Ur Leukocyte Esterase (Negative) Urine RBC (0-4) /hpf Urine WBC (0-5) /hpf Ur Epithelial Cells (0-5) /lpf Urine Bacteria (Negative) PG Care Time/CCT Total # of Minutes Spent Total Time Spent with Patient: Total time spent is greater than 50% in coordination of care (as documented) at patient's floor/unit and/or counseling patient: Coding Level of Care Code 81526 Subseq Hosp Care Lvl 2 Diagnoses Thoracic compression fracture S22.080A Encounter type: initial encounter Thoracic vertebra fracture level: T12 Lumbar compression fracture S32.000A Acid reflux K21.9 Hypothyroidism E03.9 Hyperlipidemia E78.5 Constipation K59.00 Asthma J45.909 DVT prophylaxis Z29.9 (1) Thoracic compression fracture Encounter type: initial encounter Thoracic vertebra fracture level: T12 Qualified Code(s): S22.080A - Wedge compression fracture of T11-T12 vertebra, initial encounter for closed fracture
[2020-04-09] MEDS: CALCITONIN SALMON NA 200 IU/AC 3.7 ML BTL SCH (21:11)
[2020-04-09] MEDS: SIMVASTATIN 10 MG TAB PO SCH (21:12)
[2020-04-10] MEDS: LEVOTHYROXINE SODIUM 75 MCG TABLET PO SCH (06:09)
[2020-04-10] MEDS: oxyCODONE HCL IR 5 MG TAB (IMMEDIATE RELEASE) PO PRN ×2 (06:12→13:39)
[2020-04-10 07:30] LABS: BUN Creatinine Ratio 8.6 (10-20); Calcium 8.8 mg/dl (8.5-10.1); Est GFR (African American) 75.5; Est GFR (Non-African American) 65.2; Potassium 3.3 mmol/L (3.5-5.1)
[2020-04-10] MEDS: DOCUSATE SODIUM 100 MG CAP PO SCH (08:46)
[2020-04-10] MEDS: PANTOprazole 40 MG TAB PO SCH (08:46)
[2020-04-10] MEDS: ACETAMINOPHEN 500 MG TAB PO SCH ×2 (08:46→13:37)
[2020-04-10] MEDS: FAMOTIDINE 20 MG TAB PO SCH (08:47)
[2020-04-10] MEDS: POLYETHYLENE (MIRALAX) 17 GM PACK PO SCH (08:47)
[2020-04-10] MEDS: CHOLECALCIFEROL 1,000 UNITS 25 MCG TAB PO SCH (08:47)
[2020-04-10] MEDS: LIDOCAINE 5% 1 PATCH TD SCH (08:47)
[2020-04-10] MEDS: FLUTICASONE/VILANTEROL 100/25MCG 14 PUFFS/INHALER INH SCH (08:48)
--- NOTE | 2020-04-10 08:57 | Discharge Summary ---
Date of Service April 10, 2020 Admission HPI Per Admitting Provider Primary Care Provider: Dania Pacheco MD Alejandra Ragsdale is an 79 year old female with prior history of osteoporosis who comes to the ER today with intractable back pain. She has been having ongoing issues with intermittent low back pain in February but was doing better when she saw her PCP just 6 days previously after a course of prednisone, baclofen and tramadol. She denies any trauma but cannot remember exactly what she was doing when it came on again. Pain in centre of her lower back. No radiation. Severity 10/10 on any movement, currently 0/10 when she doesn't move. No radiation down legs, incontinence of bowels/bladder or perianal numbness. She had been using a walker to help since her back pain with . She lives by herself and is currently unable to mobilize with the pain. Of note she has a significant history of osteoporosis and was on Fosamax for "a number of years". She reports having a repeat DEXA scan showing osteopenia and given the duration of being on Fosamax this was subsequently discontinued (she thinks approximately 10 years years ago. Only fractures since have been due to a fall. She also reports an episode of back spasms in August this year with in hindsight was probably the start of her compression fractures. In the ER lumbar MRI showed acute superior endplate compression deformities of T11 and L2 with progressively worsened severe T12 compression fracture with 4mm retropulsion resulting in mild central canal stenosis. She was referred to medicine for admission and ongoing management of compression fractures and intractable back pain. Admission Exam Per Admitting Provider Constitutional: well developed and well nourished; no acute distress Eyes: PERRL, conjunctivae normal, anicteric sclerae ENMT: external ear and nose normal, oropharynx normal Neck: trachea midline, no thyromegaly Respiratory: normal respiratory effort, lungs clear to auscultation Cardiovascular: RRR, no murmur, no edema Gastrointestinal (Abdomen): normal bowel sounds, soft, nontender, no hepatosplenomegaly Musculoskeletal: no cyanosis or clubbing, extremities motor strength 5/5 (b/l LE strength 5/5 throughout) Spine: + limited thoraco-lumbar ROM (due to pain), + pain with thoraco-lumbar ROM, + thoracic spinal tenderness (main pain over T11/12 on movement, mainly paraspinal pain on exam), + lumbar spinal tenderness and + straight leg raise positive (b/l); no sacral tenderness Skin: no rashes, warm and dry Neurologic: moves all extremities and awake; no focal motor deficits and not confused Psychiatric: A+Ox3, euthymic affect Principal Diagnosis Thoracic Compression Fracture Discharge Exam Constitutional well developed and well nourished; no acute distress Eyes + anicteric sclerae and PERRL ENMT external ear and nose normal, oropharynx normal Ears: + hearing impairment Neck trachea midline, no thyromegaly Respiratory normal respiratory effort, lungs clear to auscultation Cardiovascular RRR, no murmur, no edema Gastrointestinal (Abdomen) Inspection/Auscultation: abdomen normal to inspection and normal bowel sounds; abdomen not distended Percussion/Palpation: abdomen soft; abdomen nontender Musculoskeletal no cyanosis or clubbing, extremities motor strength 5/5 (b/l LE strength 5/5 throughout) Spine: + limited thoraco-lumbar ROM (pain with movement), + pain with thoraco- lumbar ROM (pain (decreased)), + thoracic spinal tenderness (with paraspinal tenderness), + lumbar spinal tenderness and + straight leg raise positive (b/l); no sacral tenderness Extremities: extremities normal to inspection Skin no rashes, warm and dry Neurologic moves all extremities and awake; no focal motor deficits and not confused Psychiatric A+Ox3, euthymic affect Lymphatic no cervical or axillary lymphadenopathy Discharge Data Allergies Allergy/AdvReac Type Severity Reaction Status Date / Time adhesive Allergy Intermediate Redness of Verified 04/07/20 13:32 Skin Consultations 04/04/20 18:03 ED Decision to Admit Stat 04/04/20 22:31 Consult Orthopedic Surgery Routine 04/08/20 15:39 Consult General Surgery Routine Ordered Studies 04/04/20 15:09 MR lumbar spine wo con Stat Pelvis x-ray CXR 04/04/20 15:11 MR pelvis wo con Stat 04/08 [facility] Hospital Course (1) Thoracic compression fracture: T 11 and L2 compression fracture, chronic T12 fracture. Spontaneous, no trauma -- vitamin D level low at 19. Was on fosamax therapy in the past --> rec DEXA outpatient and can discuss with PCP about resuming therapy. Placed on oral therapy for now and continued at discharge Pain control with tylenol, oxycodone, lidocaine patch Antiemetics for nausea d/t pain (also discussed possible kidney stone seen on KUB and blood in urine on admission however she would like to hold off on renal US during hospitalization and will discuss with her PCP at follow up if she develops any urinary symptoms or increased pain/flank pain/hematuria) Orthopedics consulted -- rec for medical management at this time but would consider follow up if condition worsens PT/OT with recs for SNF at discharge --> arranged for [facility] COVID 19 testing negative TLSO brace to be worn with ambulation Also had issues with constipation. Patient states she has gone week at a time without BM. Discussed constipation may increase pain and was given stool softeners and suppository with successful BM prior to d/c and to be continued at discharge. Did have normal c-scope 3 months ago. (2) Lumbar compression fracture: As above (3) Acid reflux: Continued pantoprazole 40mg PO daily, added pepcid and continued at discharge (4) Hypothyroidism: TSH WNL in December but will repeat with AM labs -- TSH elevated at 7.1 but FT4 wnl, likely reactive. Would repeat TFT in 6 weeks outpatient Continued levothyroxine 75 mcg PO daily (5) Hyperlipidemia: Continued simvastatin 10mg PO daily (6) Constipation: RESOLVED -- to continue bowel regimen at discharge while on pain medications (7) Asthma: Fluticasone continued. 98% on RA and lungs clear on examination (8) DVT prophylaxis: SCDs and ambulation encouraged Discharged with family transport to [facility] for rehab Total Time Total Time Spent Total Time Spent (In Minutes): 70 Discharge Plan Discharge Items Patient Disposition: Transfer Detention Fac Reason For Visit: INTRACTABLE BACK PAIN, THORACOLUMBAR Discharge Diagnosis: Thoracic Compression Fracture Goals: You have been hospitalized for an acute medical problem. During your stay at [facility], we have made an effort to correct the problem that brought you to the hospital while keeping you as comfortable as possible. Medications were used to bring your condition under control and your discharge instructions will include directions for any medications you should take after leaving the hospital. Please make sure you see your Primary Care Provider as part of your follow up plan. Activity: As commented below Activity Comment: advance with therapy. please use brace with activity Non-emergency contact: Primary Care Provider Call non-emergency contact if: you have any medication questions, your symptoms worsen and your pain is not controlled Follow-up/Referrals: Dania Pacheco MD [Primary Care Provider] - 04/15/20 10:15 am Diet: Heart Healthy Addtl Attending Provider Instructions: You have been hospitalized and found to have compression fractures of your thoracic spine. You were treated conservatively and evaluated by orthopedic surgeon who felt this should be managed conservatively at this time. You have been provided a TLSO brace to be worn with activity to help with healing. This may take several weeks. If your pain worsens, you may need to reach back out to Dr. Rosas's office for possible intervention, however, as discussed this is not the ideal situation given the current fracture. You should follow up with your PCP about obtaining a DEXA scan as an outpatient and possible start medication therapy if osteoporosis is observed. In the meantime, your Vitamin D level has been checked and was low and you will be continued on oral vitamin D supplementation at discharge. You are being sent home with pain medication and should continue a bowel regimen to prevent constipation which can worsen pain. As discussed, possible that there is a left sided kidney stone that does not seem to be causing obstruction, and you state that you have been making adequate urine. If you notice any blood, increased flank/groin discomfort or notice a fever, you may want to consider a kidney stone and have renal ultrasound completed. Please advance your activity with therapy at [facility]. Please follow up with PCP in the next week to monitor your progress. Your thyroid function was slightly elevated and felt to be reactive, as free T4 was within normal limits. You should have these repeated in the next 6-8 weeks as an outpatient. Please return to the emergency department with any fever, chest pain, worsening pain, or inability to keep up with oral intake, or for any other symptoms that are concerning for you. It has been a pleasure being a part of the medical team providing for you while you have been in the hospital. Take care! Pending Studies at Discharge: No Stand-Alone Forms: My [facility] [place] [employer] Skilled Items Patient informed of condition?: Yes DNR: No Discharge Level of Care: Skilled Communicable Disease: No Discharge Prognosis: Stable Lines: None Urinary Catheter: No Medications and DC Order Prescriptions: New polyethylene glycol 3350 [Miralax] 17 gram Powder In Packet 17 g PO QAM 14 Days RF: 0 famotidine 20 mg Tablet 20 mg PO BID 14 Days Qty: 28 RF: 0 lidocaine 5 % Adhesive Patch,Medicated 1 patch transdermal DAILY@0900 7 Days RF: 0 docusate sodium 100 mg Capsule 100 mg PO BID 14 Days Qty: 28 RF: 0 oxycodone 5 mg Tablet 5 - 10 mg PO Q4H PRN (Reason: pain) Qty: 12 RF: 0 cholecalciferol (vitamin D3) 25 mcg (1,000 unit) Capsule 2,000 unit PO QAM 30 Days RF: 0 Remove Lidoderm Patch 1 dose Not Applicable HS 7 Days RF: 0 Continued fluticasone propionate 250 mcg/actuation blister with device 1 puffs INH BID Qty: 180 RF: 3 simvastatin 10 mg tablet 10 mg PO QPM Qty: 90 RF: 1 levothyroxine 75 mcg capsule 75 mcg PO DAILY Qty: 90 RF: 3 pantoprazole 40 mg tablet,delayed release (DR/EC) 40 mg PO QAM RF: 0 acetaminophen [Tylenol 8 Hour] 650 mg Tablet Extended Release 650 mg PO Q12H PRN (Reason: Pain) RF: 0 Discharge Orders: Discharge Order (Routine); Ordered 04/10/20 Ordered By: Ana Ro/Other Patient Handouts: Anatomy of a Normal Spine, Back Basics: A Healthy Spine, Back Fracture (Compression Fracture) Admission Data Admit Date/Time: 04/06/20 09:55 Attending Provider: Bobby Geiger Admit Provider: Case Ragsdale Primary Care Provider: Dania Pacheco Other Providers: Heath Rosas ; [facility],Home Healthcare ; Rhett Bansal ; Мария Bartholomew [facility] ; [facility], ; Jose Suarez Other Interventions: Discharge Summary Assessment (RN) Last Done: 04/10/20 12:55 Coding Level of Care Code D/C Day Management >30 mins Diagnoses Thoracic compression fracture S22.080A Encounter type: initial encounter Thoracic vertebra fracture level: T12 Lumbar compression fracture S32.000A Acid reflux K21.9 Hypothyroidism E03.9 Hyperlipidemia E78.5 Constipation K59.00 Asthma J45.909 DVT prophylaxis Z29.9
[2020-04-10] MEDS ORDERED: POTASSIUM CHLORIDE CRTAB 20 MEQ TABCR PO ONE (09:00)
== END 2020-04-10 14:10 | DRG 544 ==
LOC: ED 14:28 → 3W 14:28 → SUATTDRO 19:27 → 3W 22:27 → SUATTDRO 04-06 09:55

== ENCOUNTER 2020-05-13 15:06 | Inpatient (IN) ==
[2020-05-13] MEDS ORDERED: HYDROmorphone INJ 0.5 MG/0.5 ML SYR IV STA (15:22)
[2020-05-13] MEDS ORDERED: ONDANSETRON INJ 2 MG/ML 2 ML VIAL IV STA (15:27)
--- NOTE | 2020-05-13 15:31 | Emergency Department Note ---
Impression & Plan Back pain, Compression fracture of thoracic vertebrae, non-traumatic, Compression fracture of lumbar vertebra, non-traumatic ED Provider Note NAME: DIONICIO PENALOZA AGE: 79 SEX: F : 1940 ARRIVES VIA: Ambulance INFORMANT: Patient ED PROVIDER(S): Beto Darnell DO CHIEF COMPLAINT: Back pain HPI: Patient is an 79-year-old female who presents the ER for known thoracic and lumbar compression fractures. She is following with Dr. Rosas. She was recently admitted and discharged to [facility] for rehab. She had a TLSO brace which she has been wearing. Following being discharged from treatment per her on the . She has been doing fairly okay at home. She notes that yesterday she slept in the recliner. She notes that since then when she woke up this mo rning she was having more pain in her back. She took some Tylenol but that did not work. She took some narcotics and the pain still continued to get worse. Currently 8 out of 10. It is in the exact same location in the same type of pain just worse than what she had before in the past. She denies any weakness or numbness that is new in the legs. She notes she always has chronic weakness in that left lower extremity since it started. No bowel or bladder incontinence. No numbness in the groin. No other exacerbating or remitting factors. ROS: See above HPI for pertinent positives & negatives. A total of 10 systems reviewed and were otherwise negative. PAST MEDICAL HISTORY:See Below PAST SURGICAL HISTORY:See Below FAMILY HISTORY:See Below SOCIAL HISTORY:See Below HOME MEDICATIONS:See Below ALLERGIES:See Below VITALS:See Below PHYSICAL EXAMINATION: GENERAL: Sitting up in bed, alert, moderate distress, slightly tearful holding her back EYE EXAM: normal conjunctiva. OROPHARYNX: no exudate, no erythema, lips, buccal mucosa, and tongue normal and mucous membranes are moist NECK: supple, no nuchal rigidity, no adenopathy, non-tender LUNGS: Clear to auscultation. Normal chest wall mechanics HEART: no murmurs, S1 normal and S2 normal ABDOMEN: abdomen soft, non-tender, normo-active bowel sounds, no masses, no rebound or guarding. BACK: Back is symmetrical on inspection and there is no deformity, acute midline tenderness in the lower thoracic tracking into the lumbar region SKIN: no rashes and no bruising UPPER EXTREMITIES: upper extremities are grossly normal. LOWER EXTREMITIES: Flexion-extension of the right hip knee and ankle intact. Flexion of the left hip slightly weaker than the right the patient notes at all. No weakness in flexion-extension left knee or ankle. DPs 2 out of 4. Gross sensation intact. NEURO EXAM: Normal sensorium, cranial nerves II-XII grossly intact, normal speech, no gross weakness of arms, no gross weakness of legs. MEDICAL DECISION MAKING: Patient is an 79-year-old female with a past medical history of a thoracic and lumbar compression with a TLSO who follows with Dr. Rosas who presents the ER for worsening back pain unable to get up and move around. She lives at home alone. She is already been at [facility] for rehab and was discharged home as well. She notes her symptoms/pain have gotten significantly worse. She is wearing a brace. She believes it to be related to how she was laying in the chair. IV was established and resting. Labs show no significant leukocytosis or anemia. BMP with a slightly elevated chloride at 108. LFTs bilirubin was unremarkable. Covid was negative. X-rays were declined by patient. Patient was discussed with the hospitalist as she could not be placed and could not go home even after IV Dilaudid patient was admitted for further placement. Triage Nursing notes reviewed. Limited review of prior medical records performed Vital Signs: reviewed and remarkable for HTN Differential diagnosis: Differential diagnoses includes but is not limited to lumbar radiculopathy, kidney stone, muscle strain, facture, cauda equina, mass, and disc herniation. ER treatment provided: See below Diagnostics interpreted by me: ECG: none Cardiac Monitoring: An order was placed for continuous cardiac monitoring. The monitor shows a rate of 72 with sinus rhythm. Laboratory studies: As stated above and show below. Imaging studies: X-rays are declined by patient. Consultation(s): Discussed the hospitalist for further evaluation Procedures: none Critical Care: None Past Med/Surg History Medical History (Updated 05/13/20 @ 21:39 by Beto Darnell DO) Asthma DOESNT USE RESC. 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" Hypothyroidism Intractable back pain Left leg cellulitis RESOLVED Osteoarthritis Osteopenia Right shoulder pain Suicidal ideation Surgical History History of colonoscopy History of tooth extraction Hx of bilateral cataract extraction S/P carpal tunnel release RIGHT S/P cholecystectomy S/P tonsillectomy Family History Grandfather (Paternal) Colorectal cancer Lung cancer Grandfather (Maternal) Myocardial infarction Mother Stroke Grandmother Rectal cancer Uterine cancer Denies family history of Ovarian cancer Prostate cancer Breast cancer Social History (Updated 05/13/20 @ 19:35 by Krystal Guzmán DO) Smoking Status: Former smoker Tobacco Type: Cigarettes Age Started Using Tobacco: 12; Age Quit Using Tobacco: 56; packs per day: 2; Years Smoked: 44; Cigarettes Per Day: 20-40; Smoking End Date: 1991; Second Hand Exposure: No; Hx Alcohol Use: Yes Alcohol Intake Frequency Comment: "Socially" Hx Substance Use: Yes Substance Use Type Other:: pain medication for pain Preferred Language: Guyanese Communication Ability: Effective Visual Impairment: No Limitations Hearing Ability: Normal Production Team Advisor Required: No Beliefs That Will Affect Care: None marital status: / Current Living Situation: Alone current occupational status: retired Feels Safe at Home: Yes Childhood Exposure to Second-Hand Smoke: Yes (mother and sister in house) Dental Care, Regularly: Yes Physical Activity Frequency: Does not Exercise Seatbelt Use: always Sunscreen Use: Yes Assistive Devices: Walker Allergies Allergies Allergy/AdvReac Type Severity Reaction Status Date / Time adhesive Allergy Intermediate Redness of Verified 05/13/20 16:16 Skin Home Meds Home Medications Medication Instructions Recorded Confirmed pantoprazole 40 mg PO QAM 11/22/19 05/13/20 acetaminophen [Tylenol] 325 mg PO Q4H PRN 05/07/20 05/13/20 docusate sodium 100 mg PO BID 05/07/20 05/13/20 famotidine 20 mg PO BID 05/07/20 05/13/20 fluticasone propionate [Flovent 1 inh INHALATION BID 05/07/20 05/13/20 Diskus] levothyroxine 75 mcg PO DAILYBB 05/07/20 05/13/20 polyethylene glycol 3350 [Miralax] 17 g PO QAM 05/07/20 05/13/20 simvastatin 10 mg PO HS 05/07/20 05/13/20 Previous Rx's Medication Instructions Recorded lidocaine 1 patch TOP DAILY PRN #15 ea 05/07/20 oxycodone [Roxicodone] 5 mg PO Q8H PRN #15 tab 05/07/20 alendronate 70 mg tablet 70 mg PO .COMPLEX #30 tab 05/09/20 Results & Data (ED) Vital Signs Vital Signs - 24 hr 05/13/20 15:16 05/13/20 15:45 05/13/20 15:54 Temperature 37.1 C Temperature Source Oral Pulse Rate 92 H 77 74 Pulse Rate from SpO2 Sensor 76 74 Respiratory Rate 24 17 16 Respiratory Effort / Characteristics Non-Labored Spontaneous Respiratory Depth Normal Blood Pressure 180/77 H 145/79 H Blood Pressure Mean 111 101 Blood Pressure Position Lying Pulse Oximetry 98 96 95 Oxygen Delivery Method Room Air Oxygen Flow Rate Sepsis Recent Fever Within 48 Hours No Sepsis New/Unexplained Change in Mental Status No Sepsis Action Taken by Nursing No Action Required 05/13/20 15:57 05/13/20 16:02 05/13/20 16:10 Temperature Temperature Source Pulse Rate Pulse Rate from SpO2 Sensor 86 74 Respiratory Rate Respiratory Effort / Characteristics Respiratory Depth Blood Pressure Blood Pressure Mean Blood Pressure Position Pulse Oximetry 96 95 Oxygen Delivery Method Room Air Oxygen Flow Rate Sepsis Recent Fever Within 48 Hours Sepsis New/Unexplained Change in Mental Status Sepsis Action Taken by Nursing 05/13/20 16:13 05/13/20 16:20 05/13/20 16:30 Temperature Temperature Source Pulse Rate 73 72 72 Pulse Rate from SpO2 Sensor 77 71 72 Respiratory Rate 15 19 16 Respiratory Effort / Characteristics Respiratory Depth Blood Pressure 162/84 H Blood Pressure Mean 110 Blood Pressure Position Pulse Oximetry 97 97 97 Oxygen Delivery Method Oxygen Flow Rate Sepsis Recent Fever Within 48 Hours Sepsis New/Unexplained Change in Mental Status Sepsis Action Taken by Nursing 05/13/20 16:40 05/13/20 16:50 05/13/20 17:00 Temperature Temperature Source Pulse Rate 74 74 72 Pulse Rate from SpO2 Sensor 74 73 72 Respiratory Rate 19 18 18 Respiratory Effort / Characteristics Respiratory Depth Blood Pressure Blood Pressure Mean Blood Pressure Position Pulse Oximetry 97 97 97 Oxygen Delivery Method Oxygen Flow Rate Sepsis Recent Fever Within 48 Hours Sepsis New/Unexplained Change in Mental Status Sepsis Action Taken by Nursing 05/13/20 17:09 05/13/20 17:10 05/13/20 17:20 Temperature Temperature Source Pulse Rate 66 71 76 Pulse Rate from SpO2 Sensor 68 71 73 Respiratory Rate 17 17 16 Respiratory Effort / Characteristics Respiratory Depth Blood Pressure 155/56 H Blood Pressure Mean 89 Blood Pressure Position Pulse Oximetry 97 97 97 Oxygen Delivery Method Oxygen Flow Rate Sepsis Recent Fever Within 48 Hours Sepsis New/Unexplained Change in Mental Status Sepsis Action Taken by Nursing 05/13/20 17:30 05/13/20 17:31 05/13/20 17:37 Temperature Temperature Source Pulse Rate 103 H 92 H 76 Pulse Rate from SpO2 Sensor Respiratory Rate 18 15 17 Respiratory Effort / Characteristics Respiratory Depth Blood Pressure 179/71 H Blood Pressure Mean 107 Blood Pressure Position Pulse Oximetry Oxygen Delivery Method Oxygen Flow Rate Sepsis Recent Fever Within 48 Hours Sepsis New/Unexplained Change in Mental Status Sepsis Action Taken by Nursing 05/13/20 17:40 05/13/20 17:50 05/13/20 17:59 Temperature Temperature Source Pulse Rate 85 86 78 Pulse Rate from SpO2 Sensor 71 Respiratory Rate 20 17 16 Respiratory Effort / Characteristics Respiratory Depth Blood Pressure 162/75 H Blood Pressure Mean 104 Blood Pressure Position Pulse Oximetry 92 Oxygen Delivery Method Oxygen Flow Rate Sepsis Recent Fever Within 48 Hours Sepsis New/Unexplained Change in Mental Status Sepsis Action Taken by Nursing 05/13/20 18:00 05/13/20 18:02 05/13/20 18:10 Temperature Temperature Source Pulse Rate 72 71 72 Pulse Rate from SpO2 Sensor 72 72 72 Respiratory Rate 13 14 14 Respiratory Effort / Characteristics Respiratory Depth Blood Pressure 173/80 H Blood Pressure Mean 111 Blood Pressure Position Pulse Oximetry 90 89 L 96 Oxygen Delivery Method Oxygen Flow Rate 2 Sepsis Recent Fever Within 48 Hours Sepsis New/Unexplained Change in Mental Status Sepsis Action Taken by Nursing 05/13/20 18:20 05/13/20 18:30 05/13/20 19:00 Temperature Temperature Source Pulse Rate 72 77 84 Pulse Rate from SpO2 Sensor 72 74 80 Respiratory Rate 16 23 18 Respiratory Effort / Characteristics Respiratory Depth Blood Pressure 165/122 H 182/90 H Blood Pressure Mean 136 120 Blood Pressure Position Pulse Oximetry 96 96 96 Oxygen Delivery Method Nasal Cannula Oxygen Flow Rate 2 2 Sepsis Recent Fever Within 48 Hours Sepsis New/Unexplained Change in Mental Status Sepsis Action Taken by Nursing Laboratory Data Result diagrams: 05/13/20 15:44 05/13/20 15:44 Lab Results 05/13/20 05/13/20 05/13/20 Range/Units 15:44 15:44 17:50 WBC 6.72 (4.8-10.8) K/uL RBC 5.23 (4.2-5.4) M/uL Hgb 14.8 (12.0-16.0) g/dL Hct 44.3 (37-47) % MCV 84.7 (80-100) fL MCH 28.3 (25-34) pg MCHC 33.4 (32-36) g/dL RDW Std Deviation 48.0 H (36.4-46.3) fL RDW Coeff of Jean Carlos 15.4 H (11.5-14.5) % Plt Count 180 (130-400) K/uL MPV 8.7 (7.4-10.4) fL Immature Gran % (Auto) 0.4 % Neut % (Auto) 49.3 % Lymph % (Auto) 40.9 % Boyd % (Auto) 7.3 % Eos % (Auto) 1.8 % Baso % (Auto) 0.3 % Neut # (Auto) 3.31 (1.4-6.5) K/uL Lymph # (Auto) 2.75 (1.2-3.4) K/uL Boyd # (Auto) 0.49 (0.11-0.59) K/uL Eos # (Auto) 0.12 (0-0.5) K/uL Baso # (Auto) 0.02 (0-0.2) K/uL Immature Gran # (Auto) 0.03 H (0.00-0.02) K/uL Sodium 141 (136-145) mmol/L Potassium 3.5 (3.5-5.1) mmol/L Chloride 108 H (98-107) mmol/L Carbon Dioxide 23 (21-32) mmol/L Anion Gap 10.0 (3-11) BUN 16 (7-18) mg/dl Creatinine 0.98 (0.6-1.2) mg/dl Est Cr Clr Drug Dosing 48.4 ml/min Est GFR ( Amer) 62.7 Est GFR (Non-Af Amer) 54.1 BUN/Creatinine Ratio 16.7 (10-20) Glucose 105 H (70-99) mg/dl Calcium 9.4 (8.5-10.1) mg/dl Total Bilirubin 0.6 (0.2-1) mg/dl AST 29 (15-37) U/L ALT 24 (12-78) U/L Alkaline Phosphatase 99 (45-117) U/L Total Protein 7.5 (6.4-8.2) gm/dl Albumin 3.3 L (3.4-5.0) gm/dl Globulin 4.2 H (2.5-4.0) gm/dl Albumin/Globulin Ratio 0.8 L (0.9-2) Specimen Hemolysis COVID-19 Eval Order Covid19 [facility] SARS-CoV-2, RNA, NAAT (NEGATIVE) 05/13/20 Range/Units 17:50 WBC (4.8-10.8) K/uL RBC (4.2-5.4) M/uL Hgb (12.0-16.0) g/dL Hct (37-47) % MCV (80-100) fL MCH (25-34) pg MCHC (32-36) g/dL RDW Std Deviation (36.4-46.3) fL RDW Coeff of Jean Carlos (11.5-14.5) % Plt Count (130-400) K/uL MPV (7.4-10.4) fL Immature Gran % (Auto) % Neut % (Auto) % Lymph % (Auto) % Boyd % (Auto) % Eos % (Auto) % Baso % (Auto) % Neut # (Auto) (1.4-6.5) K/uL Lymph # (Auto) (1.2-3.4) K/uL Boyd # (Auto) (0.11-0.59) K/uL Eos # (Auto) (0-0.5) K/uL Baso # (Auto) (0-0.2) K/uL Immature Gran # (Auto) (0.00-0.02) K/uL Sodium (136-145) mmol/L Potassium (3.5-5.1) mmol/L Chloride (98-107) mmol/L Carbon Dioxide (21-32) mmol/L Anion Gap (3-11) BUN (7-18) mg/dl Creatinine (0.6-1.2) mg/dl Est Cr Clr Drug Dosing ml/min Est GFR ( Amer) Est GFR (Non-Af Amer) BUN/Creatinine Ratio (10-20) Glucose (70-99) mg/dl Calcium (8.5-10.1) mg/dl Total Bilirubin (0.2-1) mg/dl AST (15-37) U/L ALT (12-78) U/L Alkaline Phosphatase (45-117) U/L Total Protein (6.4-8.2) gm/dl Albumin (3.4-5.0) gm/dl Globulin (2.5-4.0) gm/dl Albumin/Globulin Ratio (0.9-2) Specimen Hemolysis COVID-19 Eval Order SARS-CoV-2, RNA, NAAT NEGATIVE (NEGATIVE) Administered Medications Docusate Sodium (Docusate Sodium 100 Mg Cap) 100 mg PO BID [place] Stop: 06/12/20 20:59 Last Admin: 05/13/20 21:18 Dose: Not Given Documented by: [id number] Miscellaneous (Remove Lidoderm Patch) 1 ea N/A DAILY@2100 [place] Stop: 06/12/20 20:59 Last Admin: 05/13/20 21:18 Dose: Not Given Documented by: [id number] Oxycodone HCl (Oxycodone Hcl Ir 5 Mg Tab (Immediate Release)) 5 mg PO Q8H PRN PRN Reason: pain Stop: 05/27/20 20:22 Last Admin: 05/13/20 20:36 Dose: 5 mg Documented by: [id number] Simvastatin (Simvastatin 10 Mg Tab) 10 mg PO HS [place] Stop: 06/12/20 20:59 Last Admin: 05/13/20 21:17 Dose: 10 mg Documented by: [id number] Discontinued Medications Hydromorphone HCl (Hydromorphone Inj 0.5 Mg/0.5 Ml Syr) 0.5 mg IV NOW STA Stop: 05/13/20 15:23 Last Admin: 05/13/20 15:49 Dose: 0.5 mg Documented by: [id number] Methylprednisolone (Methylprednisolone 40 Mg/Ml Vial) 40 mg IV NOW STA Stop: 05/13/20 15:27 Last Admin: 05/13/20 15:49 Dose: 40 mg Documented by: [id number] Ondansetron HCl (Ondansetron Inj 2 Mg/Ml 2 Ml Vial) 4 mg IV NOW STA Stop: 05/13/20 15:28 Last Admin: 05/13/20 15:49 Dose: 4 mg Documented by: [id number] Discharge Plan Visit Data Chief Complaint: Back Injury/Pain Stated Complaint: BACK PAIN ED Provider: Beto Darnell Discharge Problem: Back pain, Compression fracture of thoracic vertebrae, non-traumatic, Compression fracture of lumbar vertebra, non-traumatic Patient Disposition: Admitted As Inpatient Discharge Instructions Interventions: ED Discharge Assessment Last Done: 05/13/20 20:02 Discharge Problem: Back pain Qualifiers: Back pain location: low back pain Chronicity: acute Back pain laterality: unspecified Sciatica presence: unspecified whether sciatica present Qualified Code(s): M54.5 - Low back pain Compression fracture of thoracic vertebrae, non-traumatic Qualifiers: Encounter type: initial encounter Thoracic vertebra fracture level: T11 Qualified Code(s): M48.54XA - Collapsed vertebra, not elsewhere classified, thoracic region, initial encounter for fracture Compression fracture of lumbar vertebra, non-traumatic Qualifiers: Encounter type: initial encounter Lumbar vertebra fracture level: L2 Qualified Code(s): M48.56XA - Collapsed vertebra, not elsewhere classified, lumbar region, initial encounter for fracture
[2020-05-13 15:52] LABS: Basophils # (auto) 0.02 K/uL (0-0.2); Basophils % (auto) 0.3 %; Eosinophils # (auto) 0.12 K/uL (0-0.5); Eosinophils % (auto) 1.8 %; Hematocrit (blood only) 44.3 % (37-47); Hemoglobin 14.8 g/dL (12.0-16.0); Immature Granulocytes # (auto) 0.03 K/uL (0.00-0.02); Immature Granulocytes % (auto) 0.4 %; Lymphocytes # (auto) 2.75 K/uL (1.2-3.4); Lymphocytes % (auto) 40.9 %; Mean Corpuscular Hemoglobin 28.3 pg (25-34); Mean Corpuscular Hgb Conc 33.4 g/dL (32-36); Mean Corpuscular Volume 84.7 fL (80-100); Mean Platelet Volume 8.7 fL (7.4-10.4); Monocytes # (auto) 0.49 K/uL (0.11-0.59); Monocytes % (auto) 7.3 %; Neutrophils # (auto) 3.31 K/uL (1.4-6.5); Neutrophils % (auto) 49.3 %; Platelet Count 180 K/uL (130-400); RDW Coefficient of Variation 15.4 % (11.5-14.5); Red Blood Count 5.23 M/uL (4.2-5.4); White Blood Count 6.72 K/uL (4.8-10.8)
[2020-05-13 16:53] LABS: Albumin Globulin Ratio 0.8 (0.9-2); Albumin Level 3.3 gm/dl (3.4-5.0); BUN Creatinine Ratio 16.7 (10-20); Bilirubin,Total 0.6 mg/dl (0.2-1); Calcium 9.4 mg/dl (8.5-10.1); Creatinine Clr Calc Pharmacy 48.4 ml/min; Est GFR (African American) 62.7; Est GFR (Non-African American) 54.1; Globulin 4.2 gm/dl (2.5-4.0); Potassium 3.5 mmol/L (3.5-5.1); Total Protein 7.5 gm/dl (6.4-8.2)
--- NOTE | 2020-05-13 19:45 | History & Physical Report ---
Date of Service May 13, 2020 Assessment & Plan (1) Back pain: Alejandra Ragsdale is an 79 year old family with PMHx of osteopenia, hypothyroidism, GERD, hyperlipidemia, and known compression fractures in the thoracic and lumbar spine admitted for intractable back pain. Back pain secondary to known compression fractures of thoracic vertebrae and lumbar vertebrae w/ hx of osteopenia - Patient declined repeat imaging in ED today prior to admission - According to previous records - Thoracic XR 05/07/20 w/ no acute fx seen, severe compression deformity fo T12 w/ mildly retropulsed fragments, mild superior plate compression deformities of T11 and L2, minimal superior plate compression deformity of T7 - Lumbar XR 05/07/20 w/ slight progression of the mild to moderate superior endplate compression fracture at L2 - Repeat thoracic/lumbar XR imaging - Continue use of TLSO brace - Pain control with oxycodone 5mg q4h prn for moderate pain and Dilaudid 0.5mg q4h for severe pain - Continue home fosfomax 70mg po 1x/week (takes on Sundays) and Vitamin D 2000 IU po daily - PT and OT eval/tx orders placed - Likely plan for discharge to rehab Suicidal Ideation - Patient reports suicidal ideation secondary to "pain and living like this" - States that had she been able to stand up from her chair today, her plan was to overdose on oxycodone at home - Continued thoughts of suicide with plans to overdose - Will initiate suicide precautions - Consult psych Hx of hyperlipidemia - Continue home simvastatin 10mg po daily Hx of hypothyroidism - Continue home levothyroxine 75mcg po daily Hx of asthma - Continue home flovent Hx of GERD - Continue home pantoprazole 40mg po daily FENGI: Regular diet DVT ppx: deferred at this time as expect short hospital stay Dispo: medsurg Code status: Full code (2) Compression fracture of thoracic vertebrae, non-traumatic: (3) Compression fracture of lumbar vertebra, non-traumatic: (4) Hyperlipidemia: (5) Hypothyroidism: (6) GERD (gastroesophageal reflux disease): (7) Asthma: (8) Osteopenia: (9) Suicidal ideation: History of Present Illness Chief Complaint: intractable back pain Primary Care Provider: Dania Pacheco MD Alejandra Ragsdale is an 79 year old female with PMHx of osteopenia, hypothyroidism, GERD, hyperlipidemia, and known compression fractures in the thoracic and lumbar spine who presents to the ED today due to intractable back pain. Patient was initially admitted to [facility] from 04/04/20 to 04/09/20 due to intractable back pain and new diagnosis of compression fractures in T7, T11, T12, and L2. She was discharged to [facility] where she underwent physical therapy. Patient states that she did very well and was discharged home on 04/26/20. Patient lives alone, in an apartment, with no stairs and elevator access. Since returning home, patient's back pain has progressively worsened. Reports associated decreased appetite secondary to pain. Patient has continued home PT 1-2x/week. She has tried to stay active with walking as tolerated but has not been doing any lifting or bending. She has not been in bed since admission at [facility]; she has been sleeping in a recliner chair. She does report an incident 6 days ago w here she was trying to lower herself into her recliner chair and slipped and "fell hard" down into the chair. She was seen in the ED at that time, had repeat XRs, analgesics, sxs improved in ED, and she was deemed suitable for outpatient follow up. However, patient states that her pain has continued to worsen. She did have f/u with her PCP last week; at that time, patient was restarted on Fosfomax, instructed to continue with TLSO brace, continue supplemental vitamin D, and orders for DEXA scan and f/u with Dr. Rosas. She states that her DEXA scan is scheduled for July and she is supposed to have f/u with Dr. Rosas as outpatient tomorrow. However, today, patient states that her pain became "an 11/10" with movement and she was unable to stand out of her chair or ambulate. She called her neighbor for assistance with pain medications and reports taking 10mg oxycodone at 10:00AM and a second round of 10mg oxycodone at 2:00PM (her home rx is for oxycodone 5mg q8h prn). Patient does report associated suicidal ideation secondary to the pain. She states, "if I could have gotten out of the chair to get to the pain medications by myself, I would have taken all of the pain medications and overdosed because I want to end this all." Patient confirms that this was not a fleeting thought; it has been persistent and she continues to have thoughts of suicide. Allergies Allergy/AdvReac Type Severity Reaction Status Date / Time adhesive Allergy Intermediate Redness of Verified 05/13/20 16:16 Skin Home Medications Medication Instructions Recorded Confirmed Type pantoprazole 40 mg PO QAM 11/22/19 05/13/20 History acetaminophen [Tylenol] 325 mg PO Q4H PRN 05/07/20 05/13/20 History docusate sodium 100 mg PO BID 05/07/20 05/13/20 History famotidine 20 mg PO BID 05/07/20 05/13/20 History fluticasone propionate [Flovent 1 inh INHALATION BID 05/07/20 05/13/20 History Diskus] levothyroxine 75 mcg PO DAILYBB 05/07/20 05/13/20 History lidocaine 1 patch TOP DAILY PRN #15 ea 05/07/20 05/13/20 Rx oxycodone [Roxicodone] 5 mg PO Q8H PRN #15 tab 05/07/20 05/13/20 Rx polyethylene glycol 3350 [Miralax] 17 g PO QAM 05/07/20 05/13/20 History simvastatin 10 mg PO HS 05/07/20 05/13/20 History alendronate 70 mg tablet 70 mg PO .COMPLEX #30 tab 05/09/20 05/13/20 Rx Past Med/Surg History Medical History (Updated 05/13/20 @ 21:39 by Beto Darnell DO) Asthma DOESNT USE RESC. 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" Hypothyroidism Intractable back pain Left leg cellulitis RESOLVED Osteoarthritis Osteopenia Right shoulder pain Suicidal ideation Surgical History History of colonoscopy History of tooth extraction Hx of bilateral cataract extraction S/P carpal tunnel release RIGHT S/P cholecystectomy S/P tonsillectomy Family History Grandfather (Paternal) Colorectal cancer Lung cancer Grandfather (Maternal) Myocardial infarction Mother Stroke Grandmother Rectal cancer Uterine cancer Denies family history of Ovarian cancer Prostate cancer Breast cancer Social History (Updated 05/13/20 @ 19:35 by Krystal Guzmán, ) Smoking Status: Former smoker Tobacco Type: Cigarettes Age Started Using Tobacco: 12; Age Quit Using Tobacco: 56; packs per day: 2; Years Smoked: 44; Cigarettes Per Day: 20-40; Smoking End Date: 1991; Second Hand Exposure: No; Do You Dip or Chew Tobacco: No; Hx Alcohol Use: No Hx Substance Use: No Preferred Language: French Communication Ability: Effective Visual Impairment: No Limitations Hearing Ability: Normal Color Making Supervisor Required: No Beliefs That Will Affect Care: None marital status: Single Current Living Situation: Alone current occupational status: retired Other Information That Helps Us Care for You: No Feels Safe at Home: Yes Safety Concerns: Feels Safe At This Time Childhood Exposure to Second-Hand Smoke: Yes (mother and sister in house) Dental Care, Regularly: Yes Physical Activity Frequency: Does not Exercise Seatbelt Use: always Sunscreen Use: Yes Assistive Devices: Brace/Splint/Immobilizer and Walker Review of Systems Constitutional: no fever + decreased appetite Ear, Nose, Mouth, Throat: no ear pain, no tinnitus and no sore throat Respiratory: no cough and no dyspnea Cardiovascular: no chest pain Gastrointestinal: no abdominal pain, no nausea, no vomiting, no change in bowel habits and no fecal incontinence Musculoskeletal: + back pain Neurologic: no tingling, no numbness, no dizziness, no headache(s) and no confusion Psychiatric: + suicidal ideation Physical Exam Physical Exam: GENERAL: No acute distress. Well developed and well nourished. Vital signs reviewed. EYES: EOMI. Anicteric sclerae. HENT: Moist mucous membranes. No pharyngeal erythema or exudates. RESPIRATORY: Clear to auscultation bilaterally. No wheezing, rales, or rhonchi. CARDIOVASCULAR: Regular rate and rhythm. No murmurs. ABDOMEN: Soft, non-tender and non-distended. Normal bowel sounds. BACK: No spinous process tenderness to palpation. Normal paraspinal muscular tenderness to palpation. EXTREMITIES: Trace BLE edema. 5/5 strength in RLE, 4/5 strength in LLE. 5/5 strength in BUE. NEUROLOGIC: A/O x3. No focal neurological deficits. CN II-XII grossly intact, but not individually tested. PSYCHIATRIC: Cooperative. Reports + suicidal ideation with plan. Results & Data Results & Data ([facility]) Vital Signs (Past 12 Hours) Vital Signs Temp Pulse Resp BP Pulse Ox 05/13/20 18:30 77 23 165/122 H 96 05/13/20 18:20 72 16 96 05/13/20 18:10 72 14 96 05/13/20 18:02 71 14 89 L 05/13/20 18:00 72 13 173/80 H 90 05/13/20 17:59 78 16 162/75 H 92 05/13/20 17:50 86 17 05/13/20 17:40 85 20 05/13/20 17:37 76 17 179/71 H 05/13/20 17:31 92 H 15 05/13/20 17:30 103 H 18 05/13/20 17:20 76 16 97 05/13/20 17:10 71 17 97 05/13/20 17:09 66 17 155/56 H 97 05/13/20 17:00 72 18 97 05/13/20 16:50 74 18 97 05/13/20 16:40 74 19 97 05/13/20 16:30 72 16 97 05/13/20 16:20 72 19 97 05/13/20 16:13 73 15 162/84 H 97 05/13/20 16:02 95 05/13/20 15:57 96 05/13/20 15:54 74 16 95 05/13/20 15:45 77 17 145/79 H 96 05/13/20 15:16 37.1 C 92 H 24 180/77 H 98 Code Status & VTE Plan VTE Prophylaxis Plan VTE Prophylaxis will be ordered: No Supervising Physician Co-Signing Physician Notes I personally saw and examined the patient. I verified all clemente points and agree with Resident Physician Dr Krystal Guzmán with the following exceptions and/or additions: 79-year-old female presents to the ER with back pain after exacerbating her previous compression fractures after slipping 1 week ago. Patient mentions to myself and resident physician that if she was able to get up to take her medi cations today she would have taken an overdose of opiates to end it all. O/E no central or paraspinal thoracic or lumbar spinal pain on palpation, sensation lower extremities bilaterally intact, no unilateral weakness A/P Acute on chronic lumbar (L2) compression fracture - consult ortho spine for potential need for kyphoplasty, continue Fosamax, continue TLSO brace PT/OT. Suicidal ideation - concern for ideation to take overdose to end all the pain, feels if she may do this again in the future. Resident Activity Tracking Resident Involvement: Resident Care Provided Care Provided: Adult Hospital Medicine (1) Compression fracture of thoracic vertebrae, non-traumatic Encounter type: initial encounter Thoracic vertebra fracture level: T11 Qualified Code(s): M48.54XA - Collapsed vertebra, not elsewhere classified, thoracic region, initial encounter for fracture (2) Compression fracture of lumbar vertebra, non-traumatic Encounter type: initial encounter Lumbar vertebra fracture level: L2 Qualified Code(s): M48.56XA - Collapsed vertebra, not elsewhere classified, lumbar region, initial encounter for fracture (3) Back pain Back pain laterality: midline Back pain location: low back pain Chronicity: chronic Sciatica presence: without sciatica Qualified Code(s): M54.5 - Low back pain; G89.29 - Other chronic pain
[2020-05-13] MEDS ORDERED: LIDOCAINE 5% 1 PATCH TD PRN (20:16)
[2020-05-13] MEDS: oxyCODONE HCL IR 5 MG TAB (IMMEDIATE RELEASE) PO PRN (20:36)
[2020-05-13] MEDS: SIMVASTATIN 10 MG TAB PO SCH (21:17)
[2020-05-13] MEDS: DOCUSATE SODIUM 100 MG CAP PO SCH (21:18)
[2020-05-14] MEDS: oxyCODONE HCL IR 5 MG TAB (IMMEDIATE RELEASE) PO PRN ×2 (04:42→13:24)
[2020-05-14] MEDS: LEVOTHYROXINE SODIUM 75 MCG TABLET PO SCH (06:44)
--- NOTE | 2020-05-14 08:50 | Psychiatric Consultation ---
Date of Consultation May 14, 2020 Impression / Recommendations Impression Dr. Brittany Segal was directly involved in review and discussion of the patient's case and participated in medical decision making regarding treatment recommendations. RECOMMENDATIONS: 05/14/2020 - Psychiatric consultation requested to evaluate patient for suicidal ideation in the context of persistent pain complaints. Pt had reported during her H&P assessment that she has considered overdosing on her pain medications. - Patient is reporting her suicidal-themed statements were made in the context of significant pain and frustration. The patient states that she did not have intent to act on these statements and denies thoughts to harm herself or end her life currently. She was able to discuss a safety plan, which includes reaching out to support, utilizing coping skills, and crisis resources if necessary. Pt adamantly denies that she was truly suicidal and is denying other needs. Based on the patient's reports, she does not seem to be at acute risk of harm to herself or others. She is reporting that she would be able to inform staff in the hospital of any safety concerns or suicidal thoughts if they should arise. - Pt does report numerous outpatient supports as well, several of whom visit her regularly throughout the week. The patient declines to sign an RON for us to review safety recommendations as she admits she is embarrassed about her statement and the subsequent safety precautions in place. Pt admits that she does plan to share this detail of her hospitalization eventually - pt was encouraged to reach out to our service for any assistance as needed. Specifically, we discussed asking a support to secure any excess medications or other items that could be used to harm oneself (patient denies guns in the home). - Pt is reporting ability to contract for safety in the hospital setting as well as at home. We appreciate the opportunity to participate in the care of this patient. Please reach out to our service with any additional questions or updates. (1) Verbalizes suicidal thoughts: - seem to be resolved - patient denies that suicidal-themed statements were sincere and states she did not have pre-meditated SI or intent to act on these thoughts - Continue to monitor mood and assess for SI during stay; however, patient does not appear to be at acute risk of harm to self or others based on reports today. (2) Compression fracture of thoracic vertebrae, non-traumatic: Encounter type: initial encounter Thoracic vertebra fracture level: T11 Qualified Code(s): M48.54XA - Collapsed vertebra, not elsewhere classified, thoracic region, initial encounter for fracture (3) Compression fracture of lumbar vertebra, non-traumatic: Encounter type: initial encounter Lumbar vertebra fracture level: L2 Qualified Code(s): M48.56XA - Collapsed vertebra, not elsewhere classified, lumbar region, initial encounter for fracture (4) Back pain: Back pain laterality: unspecified Back pain location: low back pain Chronicity: acute Sciatica presence: unspecified whether sciatica present Qualified Code(s): M54.5 - Low back pain (5) Osteopenia: Risk Factors Assessment Do You Have Access To A Gun?: No Psych History Identifying Data 79-year-old female admitted medically on 05/13/2020 after presenting to the ED with intractable back pain. Pt was admitted for similar concerns from 04/04/20 - 04/09/20 and was discharged to [facility] for rehab. Pt was discharged home from their facility on 04/26/20. Psychiatric consultation was requested by our hospitalist service due to patient reporting suicidal ideation with consideration to overdose on her pain medications. Chief Complaint "I'm good. You know what, I said that in a moment of pain." History of Present Illness Alejandra Ragsdale is an 79-year-old female admitted medically on 05/13/2020 after presenting to the ED with intractable back pain. 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 Pt had been hospitalized medically at [facility] from 04/04/20 - 04/09/20 for similar complaints and was discharged to [facility] for physical rehab. It is reported that patient was ultimately discharged home, where she lives independently, on 04/26/20. H&P suggests that patient reports her back pain has becoming worse - rating it an "11/10." Pt did verbalize during her H&P assessment that she has had suicidal ideation with consideration to overdose on her pain medication to "end this all." Psychiatric consultation was requested by our hospitalist service to evaluate patient for suicide risk. Pt was cooperative with psychiatric assessments by our team. Pt informed our psychiatric nurse liaison that she made the statements impulsively and did not have true suicidal ideation. Pt denied needs from our service and apologized for the statements, but did agree to follow-up with this provider to complete risk assessment and ensure that all needs were addressed. Pt admits to this provider as well that "I'm good. You know what, I said that in a moment of pain." Pt denies that she had true thought to end her life and denies that she intended to act on this statement. She states "I had only had one fleeting thought after my , but I didn't even think about acting on it." Pt seemed to be perplexed about the idea that some people develop these thoughts in the setting of pain, and stated "I really don't think I would ever do that." Pt shares that she has several family members that live nearby and assist her on a regular basis. The patient reports that she feels comfortable discussing her emotions with them and believes she would be able to reach out to these supports should suicidal thoughts develop. Pt also feels that she would be able to inform staff here at the hospital of any thoughts to harm herself. Pt denied feeling as though she has ever struggled with depression and anxiety in the past. She denies previous treatment for such concerns and does not feel that therapy services are necessary at this time. Pt reports sleep, appetite, energy, and mood are within normal parameters for her and denied any other symptomatology of a formal mood or anxiety disorder. Pt was willing to discuss a safety plan and was agreeable with reach out to outpatient supports or crisis resources as needed. She did decline to sign ROIs to allow our team to coordinate safety recommendations with her supports - but admitted this was due to embarrassment about the "suicide watch." Pt did state she was planning to discuss with her supports once she knew more about her treatment plan. She was encouraged to reach out to our staff with any additional needs or concerns. Past Psychiatric History Outpatient Services: None Previous Psych Admissions: None Do You Have Access To A Gun?: No History of Previous Suicide Attempt: No Describe Attempts in the Past: reports "only one fleeting thought" after her Past Medication Trials: Denied Allergies Allergy/AdvReac Type Severity Reaction Status Date / Time adhesive Allergy Intermediate Redness of Verified 05/13/20 16:16 Skin Home Medications Medication Instructions Recorded Confirmed Type pantoprazole 40 mg PO QAM 11/22/19 05/13/20 History acetaminophen [Tylenol] 325 mg PO Q4H PRN 05/07/20 05/13/20 History docusate sodium 100 mg PO BID 05/07/20 05/13/20 History famotidine 20 mg PO BID 05/07/20 05/13/20 History fluticasone propionate [Flovent 1 inh INHALATION BID 05/07/20 05/13/20 History Diskus] levothyroxine 75 mcg PO DAILYBB 05/07/20 05/13/20 History lidocaine 1 patch TOP DAILY PRN #15 ea 05/07/20 05/13/20 Rx oxycodone [Roxicodone] 5 mg PO Q8H PRN #15 tab 05/07/20 05/13/20 Rx polyethylene glycol 3350 [Miralax] 17 g PO QAM 05/07/20 05/13/20 History simvastatin 10 mg PO HS 05/07/20 05/13/20 History alendronate 70 mg tablet 70 mg PO .COMPLEX #30 tab 05/09/20 05/13/20 Rx Family History Denies known family history of mental health conditions, aside from an uncle receiving treatment s/p service resulting in injury. Substance Abuse History Pt is a former smoker "when it was 'in'." Pt quit in 1991. Denied other significant substance use. Personal History Living Arrangements: Apartment Employment Status: Retired Marital Status: ( in 2015) Number Of Children: step children, has a cousin who is "like a son" and lives nearby History of Legal Problems: Denied Psychological Trauma History Comment: Denied Patient History Medical History Asthma DOESNT USE RESC. 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" Hypothyroidism Intractable back pain Left leg cellulitis RESOLVED Osteoarthritis Osteopenia Right shoulder pain Suicidal ideation Surgical History History of colonoscopy History of tooth extraction Hx of bilateral cataract extraction S/P carpal tunnel release RIGHT S/P cholecystectomy S/P tonsillectomy Family History Grandfather (Paternal) Colorectal cancer Lung cancer Grandfather (Maternal) Myocardial infarction Mother Stroke Grandmother Rectal cancer Uterine cancer Denies family history of Ovarian cancer Prostate cancer Breast cancer Social History Smoking Status: Former smoker Tobacco Type: Cigarettes Age Started Using Tobacco: 12; Age Quit Using Tobacco: 56; packs per day: 2; Years Smoked: 44; Cigarettes Per Day: 20-40; Smoking End Date: 1991; Second Hand Exposure: No; Do You Dip or Chew Tobacco: No; Hx Alcohol Use: No Hx Substance Use: No Preferred Language: Greenlandic Communication Ability: Effective Visual Impairment: No Limitations Hearing Ability: Normal Yarn Man Required: No Beliefs That Will Affect Care: None marital status: Single Current Living Situation: Alone current occupational status: retired Other Information That Helps Us Care for You: No Feels Safe at Home: Yes Safety Concerns: Feels Safe At This Time Childhood Exposure to Second-Hand Smoke: Yes (mother and sister in house) Dental Care, Regularly: Yes Physical Activity Frequency: Does not Exercise Seatbelt Use: always Sunscreen Use: Yes Assistive Devices: Brace/Splint/Immobilizer and Walker Physical Exam Psychiatric: Orientation: alert, oriented x 3 and cooperative (and pleasant) Apperance: appropriately dressed, appropriately groomed and appeared stated age female, seated in bedside chair - appearing uncomfortable but not in acute distress. Pt is appropriately dressed for clinical setting, wearing paper scrub pants and a fabric scrub top. She is also wearing a supportive back brace. Level of hygiene and grooming appear adequate. Eye Contact: good eye contact Motor Behavior: no abnormal motor movements Speech: normal rate/rhythm/volume of speech Affect: euthymic affect Mood: no depressed mood and no anxious mood "I was just in pain" Thought Process: goal directed thought process, clear/coherent thought process and thought association intact Thought Content: reality based without delusions; no hopelessness and no worthlessness Suicidal Thoughts: denies suicidal thoughts, denies suicidal plan and denies suicidal intent reports suicidal- themed statements were made in the setting of significant pain - denies that she had truly been considering harming herself. Homicidal Thoughts: denies homicidal thoughts Hallucinations: no auditory hallucinations and no visual hallucinations Cognition: attention grossly intact and language grossly intact Estimated Intelligence: consistent with education level Insight: + fair insight Judgement: + fair judgement Vital Signs (Past 24 Hours): Last Vital Signs Temp 36.5 C 05/14/20 07:08 Pulse 82 05/14/20 07:08 Resp 22 05/14/20 07:08 BP 184/77 H 05/14/20 07:08 Pulse Ox 98 05/14/20 07:08 Review of Systems Constitutional: reports chronically low energy level Cardiovascular: denied Respiratory: denied Gastrointestinal: denied Neurological: denied Musculoskeletal: reports ongoing back pain, muscle spasms Psychiatric: denies symptoms other than stated above Total of at least 10 systems reviewed, pertinent positives as above and in HPI. Results & Data (PSY) Medications Administered Docusate Sodium (Docusate Sodium 100 Mg Cap) 100 mg PO BID [facility] Stop: 06/12/20 20:59 Last Admin: 05/13/20 21:18 Dose: Not Given Documented by: [id number] Levothyroxine Sodium (Levothyroxine Sodium 75 Mcg Tablet) 75 mcg PO DAILYBB [facility] Stop: 06/13/20 06:29 Last Admin: 05/14/20 06:44 Dose: 75 mcg Documented by: [id number] Miscellaneous (Remove Lidoderm Patch) 1 ea N/A DAILY@2100 [facility] Stop: 06/12/20 20:59 Last Admin: 05/13/20 21:18 Dose: Not Given Documented by: [id number] Oxycodone HCl (Oxycodone Hcl Ir 5 Mg Tab (Immediate Release)) 5 mg PO Q8H PRN PRN Reason: pain Stop: 05/27/20 20:22 Last Admin: 05/14/20 04:42 Dose: 5 mg Documented by: [id number] Admin: 05/13/20 20:36 Dose: 5 mg Documented by: [id number] Simvastatin (Simvastatin 10 Mg Tab) 10 mg PO [facility] Stop: 06/12/20 20:59 Last Admin: 05/13/20 21:17 Dose: 10 mg Documented by: [id number] Coding Level of Care Code 76896 [facility] Intl Hosp Care Lvl 1 Diagnoses Verbalizes suicidal thoughts R45.851 Compression fracture of thoracic vertebrae, non-traumatic M48.54XA Encounter type: initial encounter Thoracic vertebra fracture level: T11 Compression fracture of lumbar vertebra, non-traumatic M48.56XA Encounter type: initial encounter Lumbar vertebra fracture level: L2 Back pain M54.5 Back pain laterality: unspecified Back pain location: low back pain Chronicity: acute Sciatica presence: unspecified whether sciatica present Osteopenia M85.80
[2020-05-14] MEDS: CALCITONIN SALMON NA 200 IU/AC 3.7 ML BTL SCH (09:06)
[2020-05-14] MEDS: CYCLOBENZAPRINE HCL 5 MG TAB PO SCH (09:07)
[2020-05-14] MEDS: ACETAMINOPHEN 325 MG TAB PO SCH ×3 (09:08→19:49)
[2020-05-14] MEDS: DOCUSATE SODIUM 100 MG CAP PO SCH ×2 (09:08→19:50)
[2020-05-14] MEDS: PANTOprazole 40 MG TAB PO SCH (09:08)
[2020-05-14] MEDS: FLUTICASONE FUROATE 200MCG 14 PUFFS/INHALER INH SCH (09:09)
[2020-05-14] MEDS: POLYETHYLENE (MIRALAX) 17 GM PACK PO SCH ×2 (09:09→09:10)
[2020-05-14] MEDS: CHOLECALCIFEROL 1,000 UNITS 25 MCG TAB PO SCH (09:09)
--- NOTE | 2020-05-14 11:17 | Orthopedic Consultation ---
Date of Consultation May 14, 2020 Assessment & Plan (1) Compression fracture of thoracic vertebrae, non-traumatic: I discussed today with the patient regarding her symptoms and the fact they have not improved. I would like to update an MRI of the lumbar spine assess the fractures involved in their status of healing. Pending these results we may consider kyphoplasty. She is interested in this option. It may require kyphoplasty at more than 1 level. Make further conditions upon review of the MRI. I will make her n.p.o. after midnight. History of Present Illness Reason for Consultation: Back pain Attending Physician: Beto Wheat DO History of Present Illness This a very pleasant 79-year-old female that has a history of compression fractures occurring in March of this year. At that point we elected to treat her nonoperatively with a brace. Unfortunately she has had a steady decline in status with worsening pain and inability to manage her activities of daily living. She {has been in use but and providing little to no relief. Describes her pain is involving mostly lumbar region. She denies any numbness or tingling involving lower extremities. Allergies Allergy/AdvReac Type Severity Reaction Status Date / Time adhesive Allergy Intermediate Redness of Verified 05/13/20 16:16 Skin Home Medications Medication Instructions Recorded Confirmed Type pantoprazole 40 mg PO QAM 11/22/19 05/13/20 History acetaminophen [Tylenol] 325 mg PO Q4H PRN 05/07/20 05/13/20 History docusate sodium 100 mg PO BID 05/07/20 05/13/20 History famotidine 20 mg PO BID 05/07/20 05/13/20 History fluticasone propionate [Flovent 1 inh INHALATION BID 05/07/20 05/13/20 History Diskus] levothyroxine 75 mcg PO DAILYBB 05/07/20 05/13/20 History lidocaine 1 patch TOP DAILY PRN #15 ea 05/07/20 05/13/20 Rx oxycodone [Roxicodone] 5 mg PO Q8H PRN #15 tab 05/07/20 05/13/20 Rx polyethylene glycol 3350 [Miralax] 17 g PO QAM 05/07/20 05/13/20 History simvastatin 10 mg PO HS 05/07/20 05/13/20 History alendronate 70 mg tablet 70 mg PO .COMPLEX #30 tab 05/09/20 05/13/20 Rx Patient History Medical History (Updated 05/13/20 @ 21:39 by Beto Darnell DO) Asthma DOESNT USE RESC. 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" Hypothyroidism Intractable back pain Left leg cellulitis RESOLVED Osteoarthritis Osteopenia Right shoulder pain Suicidal ideation Surgical History History of colonoscopy History of tooth extraction Hx of bilateral cataract extraction S/P carpal tunnel release RIGHT S/P cholecystectomy S/P tonsillectomy Family History Grandfather (Paternal) Colorectal cancer Lung cancer Grandfather (Maternal) Myocardial infarction Mother Stroke Grandmother Rectal cancer Uterine cancer Denies family history of Ovarian cancer Prostate cancer Breast cancer Social History (Updated 05/13/20 @ 19:35 by Krystal Guzmán DO) Smoking Status: Former smoker Tobacco Type: Cigarettes Age Started Using Tobacco: 12; Age Quit Using Tobacco: 56; packs per day: 2; Years Smoked: 44; Cigarettes Per Day: 20-40; Smoking End Date: 1991; Second Hand Exposure: No; Do You Dip or Chew Tobacco: No; Hx Alcohol Use: No Hx Substance Use: No Preferred Language: Zimbabwean Communication Ability: Effective Visual Impairment: No Limitations Hearing Ability: Normal Pulper Required: No Beliefs That Will Affect Care: None marital status: Single Current Living Situation: Alone current occupational status: retired Other Information That Helps Us Care for You: No Feels Safe at Home: Yes Safety Concerns: Feels Safe At This Time Childhood Exposure to Second-Hand Smoke: Yes (mother and sister in house) Dental Care, Regularly: Yes Physical Activity Frequency: Does not Exercise Seatbelt Use: always Sunscreen Use: Yes Assistive Devices: Brace/Splint/Immobilizer and Walker Physical Exam Physical Exam: Today on exam she is in the chair at the bedside. She does have good strength testing lower extremities. She is in distress when trying to move about in the chair with pain across her back. No significant discomfort to palpation. Results & Data ([facility]) Vital Signs (Past 12 Hours) Vital Signs Temp Pulse Resp BP Pulse Ox 05/14/20 07:08 36.5 C 82 22 184/77 H 98 05/13/20 23:22 36.6 C 72 18 155/75 H 96 (1) Compression fracture of thoracic vertebrae, non-traumatic Encounter type: initial encounter Thoracic vertebra fracture level: T11 Qualified Code(s): M48.54XA - Collapsed vertebra, not elsewhere classified, thoracic region, initial encounter for fracture
--- NOTE | 2020-05-14 11:38 | Billing Data ---
Date of Service May 13, 2020 Coding Level of Care Code 33404 OBS Care - Level 2
--- NOTE | 2020-05-14 13:36 | Hospitalist Progress Note ---
Date of Service May 14, 2020 Assessment & Plan (1) Back pain: Alejandra Ragsdale is an 79 year old family with PMHx of osteopenia, hypothyroidism, GERD, hyperlipidemia, and known compression fractures in the thoracic and lumbar spine admitted for intractable back pain. Compression fractures of thoracic vertebrae and lumbar vertebrae w/ hx of osteopenia - Patient declined repeat imaging in ED today prior to admission - According to previous records - Thoracic XR 05/07/20 w/ no acute fx seen, severe compression deformity fo T12 w/ mildly retropulsed fragments, mild superior plate compression deformities of T11 and L2, minimal superior plate compression deformity of T7 - Lumbar XR 05/07/20 w/ slight progression of the mild to moderate superior endplate compression fracture at L2 - Repeat thoracic/lumbar XR imaging - Continue use of TLSO brace - Pain control with oxycodone 5mg q4h prn for moderate pain and Dilaudid 0.5mg q4h for severe pain - Continue home fosfomax 70mg po 1x/week (takes on Sundays) and Vitamin D 2000 IU po daily - PT and OT eval/tx orders placed - Ortho Spine consulted: planning on operative fixation in AM Admission and Anticipated Discharge Date Admission Date: May 13, 2020 Supervising Physician Co-Signing Physician Notes I personally examined the patient and verified all clemente points of history and exam, discussed case, and agree with decision making with Dr Rebolledo ongoing intractable pain - just moving a little makes it terrible vitals noted sitting in chair looking mildly uncomfortable wearing back brace. heent nc at mmm breathing unlabored no accessory muscles good effort Osteoporotic compression fractures with intractable painwhile it seems like she had an episode about a week and a half ago that abruptly worsened things after a degree of improvement, overall she has really been suffering with these compression fractures for the better part of the last 6 weeks or more. At this point is reasonable to consider evaluation for kyphoplasty. I have discussed with orthospine, in the meantime continue try to affect pain control. PT OT, anticipate need for rehab. Otherwise as above Subjective Patient having a large amount of pain this morning, that did improve throughout the day with addition of flexeril. States that in reflection of the pain that she was having she was just so miserable that she made the statement about wanting to overdose out of frustration. Denies suicidal intent or continued suicidal ideation as these statements were made out of frustration with pain over the last week. Review of Systems Review of Systems: All systems reviewed & are unremarkable except as noted in Subjective Physical Exam Constitutional: WD/WN, vitals as above Eyes: PERRL, conjunctivae normal, anicteric sclerae Respiratory: normal respiratory effort, lungs clear to auscultation Cardiovascular: RRR, no murmur, no edema Gastrointestinal (Abdomen): normal bowel sounds, soft, nontender, no hepatosplenomegaly Musculoskeletal: strength symmetric to b/l lower extremities, Neurologic: CN's II-XI intact bilaterally and moves all extremities sensation intact and symmetric b/l Results & Data Results & Data ([facility]) Vital Signs (Past 12 Hours) Vital Signs Temp Pulse Resp BP Pulse Ox 05/14/20 07:08 36.5 C 82 22 184/77 H 98 Resident Activity Tracking Resident Involvement: Resident Care Provided Care Provided: Adult Hospital Medicine (1) Back pain Back pain laterality: unspecified Back pain location: low back pain Chronicity: acute Sciatica presence: unspecified whether sciatica present Qualified Code(s): M54.5 - Low back pain
[2020-05-14] MEDS: CYCLOBENZAPRINE HCL 10 MG TAB PO PRN (17:12)
--- NOTE | 2020-05-14 17:45 | Magnetic Resonance Report ---
MR lumbar spine wo con CLINICAL HISTORY: 79 years-old Female with back pain. Chronic low back pain with left lower extremit y weakness. COMPARISON: MRI of the lumbar spine 04/04/2020. TECHNIQUE: Multiplanar, multi sequence MRI of the lumbar spine was performed without intravenous cont rast. FINDINGS: Hoisting Pile Driving Engineer localizer images demonstrate no gross extraspinal abnormality. No aortic aneurysm or adenopathy . There are a few small probable cysts noted within the left kidney. Moderate atrophy of the paraspin al musculature. Conus medullaris terminates at L1. Signal within the imaged thoracic spinal cord and cauda equina is unremarkable. Unchanged mild lumbar levoscoliosis. Multilevel intervertebral disc space narrowing with spondylitic spurring, ligamentum flavum thickening and facet arthrosis. Degenerative partial bony fusion at L5-S1 . Chronic T12 compression deformity with mild bone marrow edema redemonstrated. Unchanged 4 mm retropul carey involving the superior aspect of the posterior endplate. Decreased bone marrow edema within the subacute 25% superior endplate compression deformity at T11. Progressively worsened marrow edema with increased superior endplate compression at L2 now with approximately 50% compression (previously 25% ) and 4 mm retropulsion involving the superior aspect of the posterior endplate. New from prior is an acute less than 20% superior endplate compression deformity at L1 with moderate bone marrow edema. M ild edema within the lower lumbar paraspinal musculature. T12-L1: No central canal or neural foraminal stenosis. L1-L2: Flattening of the ventral thecal sac. No central canal or neural foraminal stenosis. L2-L3: Minimal spondylitic spurring with small posterior annular disc bulge, moderate facet arthrosi s and ligamentum flavum thickening. Unchanged mild central canal stenosis with mild inferior bilatera l foraminal narrowing. L3-L4: Minimal spondylitic spurring with small posterior annular disc bulge, ligamentum flavum thick ening and moderate facet arthrosis. Central canal is patent. Unchanged mild narrowing of the inferior neural foramina. L4-L5: Mild spondylitic spurring with small posterior annular disc bulge, ligamentum flavum thickeni ng with moderate facet arthrosis. Unchanged mild central canal stenosis, AP dimension of the thecal s ac measuring 8 mm. Stable mild bilateral foraminal narrowing. L5-S1: No central canal or neural foraminal stenosis. IMPRESSION: 1. Acute less than 20% superior endplate compression deformity at L1 without retropulsion, new from p rior. 2. Progressive acute on subacute superior endplate compression deformity at L2 now with 50% vertebral body height loss and 4 mm retropulsion. 3. Unchanged subacute T11 and chronic T12 compression deformities. 4. Multilevel discogenic degenerative changes with facet arthrosis as detailed above. 5. No high-grade central canal or neural foraminal stenosis. ACT 112: Negative or not required by law. The above report was generated using voice recognition software. It may contain grammatical, syntax o r spelling errors. Dictated: 05/14/2020 4:35 PM Transcribed: 05/14/2020 5:17 PM Sary [id number] [email or web address] Electronically signed by: Bobby Vinson M.D. 05/14/2020 5:43 PM
--- NOTE | 2020-05-14 19:16 | Billing Data ---
Date of Service May 14, 2020 Coding Level of Care Code 19519 Subseq Hosp Care Lvl 3
[2020-05-14] MEDS: SIMVASTATIN 10 MG TAB PO SCH (19:50)
[2020-05-15] MEDS: oxyCODONE HCL IR 5 MG TAB (IMMEDIATE RELEASE) PO PRN ×2 (00:35→23:01)
[2020-05-15] MEDS: CYCLOBENZAPRINE HCL 10 MG TAB PO PRN ×2 (04:17→20:09)
[2020-05-15] MEDS: LEVOTHYROXINE SODIUM 75 MCG TABLET PO SCH (04:18)
--- NOTE | 2020-05-15 07:37 | Hospitalist Progress Note ---
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 Compression fractures of thoracic vertebrae and lumbar vertebrae w/ hx of osteopenia - Patient declined repeat imaging in ED today prior to admission - According to previous records - Thoracic XR 05/07/20 w/ no acute fx seen, severe compression deformity fo T12 w/ mildly retropulsed fragments, mild superior plate compression deformities of T11 and L2, minimal superior plate compression deformity of T7 - Lumbar XR 05/07/20 w/ slight progression of the mild to moderate superior endplate compression fracture at L2 - Repeat thoracic/lumbar XR imaging - Continue use of TLSO brace - Pain control with oxycodone 7.5mg q8h prn for moderate pain - Continue Calcitonin nasal daily, and Flexeril daily - Continue home fosfomax 70mg po 1x/week (takes on Sundays) and Vitamin D 2000 IU po daily - PT and OT eval/tx orders placed - Ortho Spine consulted: planning on operative fixation in AM Admission and Anticipated Discharge Date Admission Date: May 14, 2020 Supervising Physician Co-Signing Physician Notes I personally examined the patient and verified all clemente points of history and exam, discussed case, and agree with decision making with Dr Rebolledo Pain control better with morphine. Appreciate orthopedics input. Updated her friend Carlos over the phone at her request, answered all questions the best my ability. vitals noted laying in bed not moving much but no distress. heent nc at mmm breathing unlabored no accessory muscles good effort Osteoporotic compression fractures with intractable painwhile it seems like she had an episode about a week and a half ago that abruptly worsened things after a degree of improvement, overall she has really been suffering with these compression fractures for the better part of the last 6 weeks or more. At this point is reasonable to consider evaluation for kyphoplastywe discussed this, and she has also been discussing with orthopedics, and will proceed with the hopes of affecting some degree of immediate pain relief. PT OT, possible need for rehab. Otherwise as above Subjective Patient was unable to have surgery today due to scheduling, but is on the board for tomorrow. Having some improvement with pain following a one time dose of 4mg IV morphine in the AM, and was able to have more persistent relief throughout the day. Review of Systems Review of Systems: All systems reviewed & are unremarkable except as noted in Subjective Physical Exam Constitutional: WD/WN, vitals as above Eyes: PERRL, conjunctivae normal, anicteric sclerae Respiratory: normal respiratory effort, lungs clear to auscultation Cardiovascular: RRR, no murmur, no edema Gastrointestinal (Abdomen): normal bowel sounds, soft, nontender, no hepatosplenomegaly Neurologic: CN's II-XI intact bilaterally and moves all extremities Results & Data Results & Data ([facility]) Vital Signs (Past 12 Hours) Vital Signs Temp Pulse Resp BP Pulse Ox 05/14/20 22:35 36.4 C L 73 16 137/74 95 Resident Activity Tracking Resident Involvement: Resident Care Provided Care Provided: Adult Hospital Medicine (1) Back pain Back pain laterality: unspecified Back pain location: low back pain Chronicity: acute Sciatica presence: unspecified whether sciatica present Qualified Code(s): M54.5 - Low back pain
[2020-05-15] MEDS ORDERED: MoRPHine SULFATE 4 MG/ML 1 ML CARP\\VIAL IV STA (08:21)
[2020-05-15] MEDS ORDERED: ONDANSETRON INJ 2 MG/ML 2 ML VIAL IV PRN (08:53)
[2020-05-15] MEDS: FLUTICASONE FUROATE 200MCG 14 PUFFS/INHALER INH SCH (08:57)
[2020-05-15] MEDS: CALCITONIN SALMON NA 200 IU/AC 3.7 ML BTL SCH (09:00)
[2020-05-15] MEDS: PANTOprazole 40 MG TAB PO SCH (09:01)
[2020-05-15] MEDS: CHOLECALCIFEROL 1,000 UNITS 25 MCG TAB PO SCH (09:01)
[2020-05-15] MEDS: ACETAMINOPHEN 325 MG TAB PO SCH ×3 (09:01→20:09)
[2020-05-15] MEDS: CYCLOBENZAPRINE HCL 5 MG TAB PO SCH (09:02)
[2020-05-15] MEDS: POLYETHYLENE (MIRALAX) 17 GM PACK PO SCH (09:02)
[2020-05-15] MEDS: DOCUSATE SODIUM 100 MG CAP PO SCH ×2 (09:02→20:07)
--- NOTE | 2020-05-15 11:57 | Orthopedic Progress Note ---
Date of Service May 15, 2020 Assessment & Plan (1) Compression fracture of lumbar vertebra, non-traumatic: Admission and Anticipated Discharge Date Admission Date: May 14, 2020 I have reviewed with the patient her recent MRI findings. She would like to continue with surgical intervention. Would require at least a kyphoplasty of L1 and L2. T12 is essentially of vertebral plana be very difficult to access. I think we can allow T11 to heal on its own without intervention. Patient understands agrees. I will make her n.p.o. after midnight with plan for kyphoplasty in the a.m. Subjective Patient still complaining of considerable back pain Physical Exam Physical Exam: Exam she has intact to testing to the lower extremities. She is in distress with motion. Results & Data ([facility]) Vital Signs (Past 12 Hours) Vital Signs Temp Pulse Resp BP Pulse Ox 05/15/20 07:45 36.7 C 77 18 152/68 H 95 (1) Compression fracture of lumbar vertebra, non-traumatic Encounter type: initial encounter Lumbar vertebra fracture level: L2 Qualified Code(s): M48.56XA - Collapsed vertebra, not elsewhere classified, lumbar region, initial encounter for fracture
--- NOTE | 2020-05-15 17:02 | Billing Data ---
Date of Service May 15, 2020 Coding Level of Care Code 26953 Subseq Hosp Care Lvl 3
--- NOTE | 2020-05-15 17:34 | Anesthesiology Consultation ---
Date of Service May 15, 2020 Assessment & Plan (1) Encounter for pre-operative examination: Chart Review Chart Review: Acceptable Risk for Surgery and Patient NOT seen in Pre Admission Testing Consults Requested none Additional Notes COVID testing negative. Order placed for preoperative EKG to be done tonight. Patient and EKG to be evaluated tomorrow morning by the anesthesiologist assigned to the case. History Surgery Operation Date: 05/16/20 08:15 Proposed Procedures p L1 and L2 Kyphoplasty - Heath Rosas DO Height/Weight Height: 5 ft 7 in Weight: 81.3 kg Allergies Allergy/AdvReac Type Severity Reaction Status Date / Time adhesive Allergy Intermediate Redness of Verified 05/13/20 16:16 Skin Medications Home Medications Medication Instructions Recorded Confirmed Last Taken pantoprazole 40 mg PO QAM 11/22/19 05/13/20 05/12/20 acetaminophen [Tylenol] 325 mg PO Q4H PRN 05/07/20 05/13/20 05/13/20 docusate sodium 100 mg PO BID 05/07/20 05/13/20 05/12/20 famotidine 20 mg PO BID 05/07/20 05/13/20 05/12/20 fluticasone propionate [Flovent 1 inh INHALATION BID 05/07/20 05/13/20 05/12/20 Diskus] levothyroxine 75 mcg PO DAILYBB 05/07/20 05/13/20 05/13/20 lidocaine 1 patch TOP DAILY PRN #15 ea 05/07/20 05/13/20 Unknown oxycodone [Roxicodone] 5 mg PO Q8H PRN #15 tab 05/07/20 05/13/20 05/13/20 polyethylene glycol 3350 [Miralax] 17 g PO QAM 05/07/20 05/13/20 05/12/20 simvastatin 10 mg PO HS 05/07/20 05/13/20 05/12/20 alendronate 70 mg tablet 70 mg PO .COMPLEX #30 tab 05/09/20 05/13/20 05/12/20 calcitonin (salmon) 1 spray NA DAILY 30 Days #3.7 ml 05/14/20 Unknown cyclobenzaprine 5 mg PO QAM 10 Days #10 tab 05/14/20 Unknown Active Medications Generic Name Dose Route Start Last Admin Trade Name Freq PRN Reason Stop Dose Admin Acetaminophen 650 mg 05/14/20 09:00 05/15/20 14:06 Acetaminophen 325 Mg Tab PO 06/13/20 08:59 650 mg TID LAYTON Administration Calcitonin Narka 1 sprays 05/14/20 09:00 05/15/20 09:00 Calcitonin Narka Na 200 Iu/Ac 3.7 Ml Btl NA 06/13/20 08:59 1 sprays DAILY LAYTON Administration Cyclobenzaprine HCl 5 mg 05/14/20 09:00 05/15/20 09:02 Cyclobenzaprine Hcl 5 Mg Tab PO 06/13/20 08:59 5 mg QAM LAYTON Administration Cyclobenzaprine HCl 5 mg 05/14/20 16:56 05/15/20 04:17 Cyclobenzaprine Hcl 10 Mg Tab PO 06/13/20 16:55 5 mg Q12H PRN Administration Breakthrough Pain Docusate Sodium 100 mg 05/13/20 21:00 05/15/20 09:02 Docusate Sodium 100 Mg Cap PO 06/12/20 20:59 100 mg BID LAYTON Administration Fluticasone Furoate 1 puffs 05/14/20 09:00 05/15/20 08:57 Fluticasone Furoate 200mcg 14 Puffs/Inhaler INH 06/13/20 08:59 1 puffs DAILY LAYTON Administration Levothyroxine Sodium 75 mcg 05/14/20 06:30 05/15/20 04:18 Levothyroxine Sodium 75 Mcg Tablet PO 06/13/20 06:29 75 mcg DAILYBB LAYTON Administration Miscellaneous 1 ea 05/13/20 21:00 05/14/20 19:51 Remove Lidoderm Patch N/A 06/12/20 20:59 Not Given DAILY@2100 [facility] Pantoprazole Sodium 40 mg 05/14/20 09:00 05/15/20 09:01 Pantoprazole 40 Mg Tab PO 06/13/20 08:59 40 mg QAM LAYTON Administration Polyethylene Glycol 17 gm 05/14/20 09:00 05/15/20 09:02 Polyethylene (Miralax) 17 Gm Pack PO 06/13/20 08:59 Not Given QAM LAYTON Simvastatin 10 mg 05/13/20 21:00 05/14/20 19:50 Simvastatin 10 Mg Tab PO 06/12/20 20:59 10 mg HS LAYTON Administration Vitamin D 2,000 units 05/14/20 09:00 05/15/20 09:01 Cholecalciferol 1,000 Units 25 Mcg Tab PO 06/13/20 08:59 2,000 units QAM LAYTON Administration NPO Date Last Intake of Fluids: 05/14/20 Time Last Intake of Fluids: 23:59 Date Last Intake of Solids: 05/14/20 Time Last Intake of Solids: 23:59 Past Medical History Medical History Asthma DOESNT USE RESC. 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" Hypothyroidism Intractable back pain Left leg cellulitis RESOLVED Osteoarthritis Osteopenia Right shoulder pain Suicidal ideation Past Family History Family History Grandfather (Paternal) Colorectal cancer Lung cancer Grandfather (Maternal) Myocardial infarction Mother Stroke Grandmother Rectal cancer Uterine cancer Denies family history of Ovarian cancer Prostate cancer Breast cancer Past Surgical History Surgical History History of colonoscopy History of tooth extraction Hx of bilateral cataract extraction S/P carpal tunnel release RIGHT S/P cholecystectomy S/P tonsillectomy Social History Smoking Status: Former smoker Smoking cigarettes per day: 20-40 Do You Dip or Chew Tobacco: No Smoking End Date: 1991 Hx Alcohol Use: No Hx Substance Use: No substance use type: prescription drug Substance Use Type Other:: pain medication for pain Physical Exam Vital Signs Last Vital Signs Temp 36.6 C 05/15/20 14:29 Pulse 75 05/15/20 14:29 Resp 16 05/15/20 14:29 BP 118/66 05/15/20 14:29 Pulse Ox 93 05/15/20 14:29 Testing Laboratory Results 05/13/20 15:44 05/13/20 15:44
[2020-05-15] MEDS: SIMVASTATIN 10 MG TAB PO SCH (20:09)
[2020-05-16] MEDS ORDERED: NEOSTIGMINE METHYLSULFATE 1 MG/ML 10ML VIAL ONE (07:46)
[2020-05-16] MEDS ORDERED: ROCURONIUM BROMIDE 10 MG/ML 5 ML VIAL IV ONE (07:46)
[2020-05-16] MEDS ORDERED: fentaNYL citrate 100 MCG/2 ML VIAL ONE (07:46)
[2020-05-16] MEDS ORDERED: ONDANSETRON INJ 2 MG/ML 2 ML VIAL ONE (07:46)
[2020-05-16] MEDS ORDERED: LIDOCAINE HCL 2% 2 ML VIAL/AMP(20MG/ML) INFIL ONE (07:46)
[2020-05-16] MEDS ORDERED: GLYCOPYRROLATE 0.2 MG/ML VIAL ONE (07:46)
[2020-05-16] MEDS ORDERED: PROPOFOL IV EMULSION 10 MG/ML 20 ML VIAL IV ONE (07:46)
--- NOTE | 2020-05-16 07:46 | History & Physical Bridge Note ---
Date of Service May 16, 2020 History & Physical Bridge Note I have examined the patient, reviewed the History & Physical and in the interval since the performance of the History & Physical I have noted the following changes of clinical significance: no changes noted Kyphoplasty L1 and L2 with possible kyphoplasty T11 and T12
[2020-05-16] MEDS: LEVOTHYROXINE SODIUM 75 MCG TABLET PO SCH (07:51)
--- NOTE | 2020-05-16 07:51 | Hospitalist Progress Note ---
Date of Service May 16, 2020 Assessment & Plan (1) Back pain: Alejandra Ragsdale is an 79 year old family with PMHx of osteopenia, hypothyroidism, GERD, hyperlipidemia, and known compression fractures in the thoracic and lumbar spine admitted for intractable back pain. Compression fractures of thoracic vertebrae and lumbar vertebrae w/ hx of osteopenia - POD#0 s/p L1/L2 kyphoplasty - According to previous records - Thoracic XR 05/07/20 w/ no acute fx seen, severe compression deformity fo T12 w/ mildly retropulsed fragments, mild superior plate compression deformities of T11 and L2, minimal superior plate compression deformity of T7 - Lumbar XR 05/07/20 w/ slight progression of the mild to moderate superior endplate compression fracture at L2 - Continue use of TLSO brace - Pain control with oxycodone 7.5mg q8h prn for moderate pain - Continue Calcitonin nasal daily, and Flexeril daily - Continue home fosfomax 70mg po 1x/week (takes on Sundays) and Vitamin D 2000 IU po daily - PT and OT eval/tx orders placed - Ortho Spine consulted: L1 and L2 Kyphoplasty completed today Admission and Anticipated Discharge Date Admission Date: May 14, 2020 Supervising Physician Co-Signing Physician Notes I personally examined the patient and verified all clemente points of history and exam, discussed case, and agree with decision making with Dr Rebolledo seen post op. pain basically gone other than a post op soreness. very pleased with how she feels. vitals noted laying in bed not moving much but no distress. heent nc at mmm breathing unlabored no accessory muscles good effort Osteoporotic compression fractures with intractable painwhile it seems like she had an episode about a week and a half ago that abruptly worsened things after a degree of improvement, overall she has really been suffering with these compression fractures for the better part of the last 6 weeks or more. because of this --> kyphoplasty. thus far, appears to have had immediate relief. PT OT, possible need for rehab, although hopefully with her pain better controlled she stands a better chance of being able to be home. bone health management as outpt Otherwise as above Subjective Patient going to OR this morning for fixation of back. Still having pain overnight and continuing to utilize medications regularly. Having less spasm pain than previously. Review of Systems Review of Systems: All systems reviewed & are unremarkable except as noted in Subjective Physical Exam Constitutional: WD/WN, vitals as above Eyes: PERRL, conjunctivae normal, anicteric sclerae Respiratory: normal respiratory effort, lungs clear to auscultation Cardiovascular: RRR, no murmur, no edema Gastrointestinal (Abdomen): normal bowel sounds, soft, nontender, no hepatosplenomegaly Neurologic: CN's II-XI intact bilaterally and moves all extremities Results & Data Results & Data ([facility]) Vital Signs (Past 12 Hours) Vital Signs Temp Pulse Resp BP Pulse Ox 05/16/20 07:33 36.7 C 78 16 146/71 H 94 05/15/20 23:07 36.8 C 79 16 145/58 H 95 Resident Activity Tracking Resident Involvement: Resident Care Provided Care Provided: Adult Hospital Medicine (1) Back pain Back pain laterality: unspecified Back pain location: low back pain Chronicity: acute Sciatica presence: unspecified whether sciatica present Qualified Code(s): M54.5 - Low back pain
[2020-05-16] MEDS ORDERED: ePHEDrine sulfate 50 MG/ML AMP IV PRN (08:06)
[2020-05-16] MEDS ORDERED: ATROPINE SULFATE 0.1 MG/ML 10ML SYR IV PRN (08:06)
[2020-05-16] MEDS ORDERED: ONDANSETRON INJ 2 MG/ML 2 ML VIAL IV PRN ×2 (08:06→10:56)
[2020-05-16] MEDS ORDERED: BUPIVACAINE/EPINEPHRINE 0.5% MPF 1:200,000 30 ML VIAL ONE (08:17)
[2020-05-16] MEDS ORDERED: IOPAMIDOL INJ 61% 15 ML VIAL ONE ×2 (08:17→08:34)
[2020-05-16] MEDS ORDERED: ceFAZolin 2000MG 2,000 MG/15 ML SYR IV SCH (08:25)
[2020-05-16] MEDS ORDERED: ceFAZolin 2,000 MG/15 ML IV PUSH IV ONE (08:26)
[2020-05-16] MEDS ORDERED: DEXAMETHASONE SOD INJ 4 MG/ML VIAL ONE (08:49)
--- NOTE | 2020-05-16 09:29 | Operative Report ---
Post Operative Report Pre & Post Diagnosis Operation Date: 05/16/20 08:15 Pre-Op Diagnosis: INTRACTABLE BACK PAIN WITH HISTORY OF MULTIPLE COMPRESSION FRACTURES Post-Op Diagnosis: INTRACTABLE BACK PAIN WITH HISTORY OF MULTIPLE COMPRESSION FRACTURES I identified the patient and participated in the time-out.: Yes Procedure Operation Date: 05/16/20 08:15 Actual Procedures #1 kyphoplasty of L1 and L2 vertebral body. #2 biopsy of L1 and L2 vertebral body. Surgeon Heath Rosas, DO System Validation Engineer None Estimated Blood Loss 10 Findings Consistent with Post-Op Diagnosis Specimens Vertebral body biopsy of L1 and L2 Indications This is an 79-year-old female presents with chronic persistent back pain has diagnosis of acute on chronic compression fractures and here for surgical invention. Description of Procedure Patient was met with identified informed consent obtained. Patient was then taken to the operative suite underwent a patient placed in a prone position injectable chest padded bolsters. All bony prominences well-padded eyes inspected to ensure no external pressure placed upon the. This point the thoracolumbar spine was prepped and draped in a sterile fashion. The assistance of fluoroscopy identified the T11-L2 vertebral bodies in AP and lateral planes. We gained the L1 vertebral body. 2 small incisions were placed just lateral to the pedicles and 2 Kyphon working cannulas placed by way of a transpedicular approach into the vertebral body of L1. 2 core biopsies were obtained. I then inserted 2 Kyphon 15 mm balloons within the vertebral body. I inflated them with fluoroscopic visualization. They were safely removed and approximately 4 and half cc of Kyphon cement injected with fluoroscopic visualization. Demonstrated excellent interdigitation and fill. I then proceeded to L to. Again 2 small incisions created and Kyphon cannula was placed within the vertebral body by way of a transpedicular approach. 2 core biopsies obtained. I then inserted the balloons and subsequently inflated. They were removed and approximately 3 cc of Kyphon cement injected with fluoroscopic visualization demonstrating excellent interdigitation and fill. The working cannulas were then removed. The T12 vertebral body was a complete vertebra Jennie and unable to be accessed. I did abort the T11 as I did not want to have bony cement above below vertebral body. The incisions were then closed with subcutaneous Monocryl and sterile dressings placed. Patient waken taken to PACU stable condition. I attest to the content of the Intraoperative Record and any orders documented therein. Any exceptions are noted below.
[2020-05-16] MEDS: fentaNYL citrate 100 MCG/2 ML VIAL IV PRN ×4 (09:52→10:07)
--- NOTE | 2020-05-16 10:05 | Fluoroscopy Report ---
FL lumbar spine 2-3V HISTORY: 79 years-old Female L1-L2 KYPHOPLASTY acute compression deformities of the lumbar spine COMPARISON: MRI lumbar spine 05/14/2020 TECHNIQUE: 3 spot fluoroscopic images of the lumbar spine were obtained utilizing 117.0 seconds fluor oscopy time FINDINGS: Interval kyphoplasty at what is labeled the L1 and L2 levels. Chronic T12 compression deformity. The study is limited secondary to magnification. No unexpected opaque foreign body. IMPRESSION: Fluoroscopic assistance as above. ACT 112: Negative or not required by law. The above report was generated using voice recognition software. It may contain grammatical, syntax o r spelling errors. Electronically signed by: Bobby Vinson M.D. 05/16/2020 10:04 AM
--- NOTE | 2020-05-16 10:37 | Anesthesiology Progress Note ---
Date of Service May 16, 2020 Anesthesia Post Procedure Vital Signs Vital Signs: Temp Pulse Pulse Resp BP Pulse Ox 05/16/20 10:20 97.7 F 70 18 163/52 H 97 05/16/20 10:10 75 17 168/56 H 98 05/16/20 10:00 79 18 169/58 H 99 05/16/20 09:50 78 18 126/107 H 99 05/16/20 09:42 97.2 F L 95 H 16 182/87 H 97 05/16/20 08:03 98.6 F 79 20 125/55 L 97 05/16/20 07:33 98.1 F 78 16 146/71 H 94 05/15/20 23:07 98.2 F 79 16 145/58 H 95 05/15/20 14:29 97.9 F 75 16 118/66 93 Pain Intensity Lower Back: Pain Intensity: 3 Transfer of Care Handoff Completed per policy Notes Mental Status: alert / awake / arousable and participated in evaluation Patient Amnestic to Procedure: Yes Nausea / Vomiting: adequately controlled Pain: adequately controlled Airway Patency, RR, SpO2: stable & adequate BP & HR: stable & adequate Hydration State: stable & adequate Anesthetic Complications: no major complications apparent and Pt Satisfied with anesthetic care
[2020-05-16] MEDS ORDERED: diphenhydrAMINE Capsule 25 MG CAP PO PRN (10:56)
[2020-05-16] MEDS ORDERED: HYDROmorphone INJ 0.5 MG/0.5 ML SYR IV PRN (10:56)
[2020-05-16] MEDS ORDERED: FAMOTIDINE 20 MG TAB PO PRN (10:56)
[2020-05-16] MEDS ORDERED: LORazepam 0.5 MG/1 ML VIAL IV PRN (10:56)
[2020-05-16] MEDS ORDERED: ONDANSETRON 4 MG OD TAB PO PRN (10:56)
[2020-05-16] MEDS ORDERED: ACETAMINOPHEN 1,000 MG/100 ML VIAL IV PRN (10:56)
[2020-05-16] MEDS ORDERED: DO NOT ADMINISTER PNEUMOCOCCAL VACCINE PRN (10:56)
[2020-05-16] MEDS ORDERED: METOCLOPRAMIDE HCL INJ 5 MG/ML 2 ML VIAL IV PRN (10:56)
[2020-05-16] MEDS ORDERED: ALUMINUM/MAGNESIUM SUSP 30 ML UDC PO PRN (10:56)
[2020-05-16] MEDS ORDERED: DO NOT ADMINISTER FLU VACCINE PRN (10:56)
[2020-05-16] MEDS ORDERED: ACETAMINOPHEN 500 MG TAB PO PRN (10:56)
[2020-05-16] MEDS ORDERED: MAGNESIUM HYDROXIDE SUSP 30 ML UDC PO PRN (10:56)
[2020-05-16] MEDS ORDERED: SOD PHOSPHATE/SOD BIPHOSPHATE ENEMA 132 ML BTL PR PRN (10:56)
[2020-05-16] MEDS ORDERED: LORazepam 0.5 MG TAB PO PRN (10:56)
[2020-05-16] MEDS ORDERED: hydrOXYzine HCl 25 MG TAB PO PRN (10:56)
[2020-05-16] MEDS ORDERED: PROMETHAZINE HCL 12.5 MG in SODIUM CHLORIDE 0.9% 50 ML IV PRN (10:56)
[2020-05-16] MEDS ORDERED: bisacodyL 10 MG SUPP PR PRN (10:56)
[2020-05-16] MEDS ORDERED: NALOXONE HCL 0.4 MG/1 ML VIAL/CARP IV PRN (10:56)
[2020-05-16] MEDS: SODIUM CHLORIDE 0.9% 1000ML 1,000 ML IV SCH ×2 (11:08→23:48)
[2020-05-16] MEDS: FLUTICASONE FUROATE 200MCG 14 PUFFS/INHALER INH SCH (11:12)
[2020-05-16] MEDS: DOCUSATE SODIUM 100 MG CAP PO SCH ×2 (11:13→20:50)
[2020-05-16] MEDS: CYCLOBENZAPRINE HCL 5 MG TAB PO SCH (11:13)
[2020-05-16] MEDS: POLYETHYLENE (MIRALAX) 17 GM PACK PO SCH (11:14)
[2020-05-16] MEDS: CALCITONIN SALMON NA 200 IU/AC 3.7 ML BTL SCH (11:14)
[2020-05-16] MEDS: ACETAMINOPHEN 325 MG TAB PO SCH ×3 (11:15→20:51)
[2020-05-16] MEDS: CHOLECALCIFEROL 1,000 UNITS 25 MCG TAB PO SCH (11:16)
[2020-05-16] MEDS: PANTOprazole 40 MG TAB PO SCH (11:16)
--- NOTE | 2020-05-16 17:26 | Billing Data ---
Date of Service May 16, 2020 Coding Level of Care Code 60103 Subseq Hosp Care Lvl 3
[2020-05-16] MEDS: oxyCODONE HCL IR 5 MG TAB (IMMEDIATE RELEASE) PO PRN (18:38)
[2020-05-16] MEDS: SIMVASTATIN 10 MG TAB PO SCH (20:47)
[2020-05-16] MEDS ORDERED: DOCUSATE SODIUM/SENNA 50/8.6MG TAB PO SCH (21:00)
--- NOTE | 2020-05-16 23:33 | Electrocardiogram Report ---
Test Reason : Blood Pressure : / mmHG Vent. Rate : 079 BPM Atrial Rate : 079 BPM P-R Int : 138 ms QRS Dur : 082 ms QT Int : 366 ms P-R-T Axes : 039 -57 057 degrees QTc Int : 419 ms Normal sinus rhythm Left axis deviation Septal infarct , age undetermined Inferior infarct , age undetermined Abnormal ECG No previous ECGs available Confirmed by Cruz Anne ([id number]) on 05/16/2020 11:33:00 PM Referred By: REFERRED SELF Confirmed By:Cruz Anne
[2020-05-17] MEDS: POLYETHYLENE (MIRALAX) 17 GM PACK PO SCH ×2 (06:19→11:13)
[2020-05-17] MEDS: LEVOTHYROXINE SODIUM 75 MCG TABLET PO SCH (06:20)
[2020-05-17] MEDS: oxyCODONE HCL IR 5 MG TAB (IMMEDIATE RELEASE) PO PRN ×2 (06:21→14:00)
[2020-05-17] MEDS: FLUTICASONE FUROATE 200MCG 14 PUFFS/INHALER INH SCH (08:33)
[2020-05-17] MEDS: CALCITONIN SALMON NA 200 IU/AC 3.7 ML BTL SCH (08:34)
[2020-05-17] MEDS: PANTOprazole 40 MG TAB PO SCH (08:35)
[2020-05-17] MEDS: CHOLECALCIFEROL 1,000 UNITS 25 MCG TAB PO SCH (08:35)
[2020-05-17] MEDS: DOCUSATE SODIUM 100 MG CAP PO SCH (08:36)
[2020-05-17] MEDS: ACETAMINOPHEN 325 MG TAB PO SCH ×2 (08:36→14:01)
[2020-05-17] MEDS: CYCLOBENZAPRINE HCL 5 MG TAB PO SCH ×2 (08:37→16:25)
[2020-05-17] MEDS ORDERED: ERGOCALCIFEROL 50,000 UNITS 1250 MCG CAP PO SCH (09:00)
--- NOTE | 2020-05-17 12:37 | Discharge Summary ---
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 Patient was initially admitted to [facility] from 04/04/20 to 04/09/20 due to intractable back pain and new diagnosis of compression fractures in T7, T11, T12, and L2. She was discharged to [facility] where she underwent physical therapy. Patient states that she did very well and was discharged home on 04/26/20. Patient lives alone, in an apartment, with no stairs and elevator access. Since returning home, patient's back pain has progressively worsened. Reports associated decreased appetite secondary to pain. Patient has continued home PT 1-2x/week. She has tried to stay active with walking as tolerated but has not been doing any lifting or bending. She has not been in bed since admission at [facility]; she has been sleeping in a recliner chair. She does report an incident 6 days ago where she was trying to lower herself into her recliner chair and slipped and "fell hard" down into the chair. She was seen in the ED at that time, had repeat XRs, analgesics, sxs improved in ED, and she was deemed suitable for outpatient follow up. However, patient states that her pain has continued to worsen. She did have f/u with her PCP last week; at that time, patient was restarted on Fosfomax, instructed to continue with TLSO brace, continue supplemental vitamin D, and orders for DEXA scan and f/u with Dr. Rosas. She states that her DEXA scan is scheduled for July and she is supposed to have f/u with Dr. Rosas as outpatient tomorrow. However, today, patient states that her pain became "an 11/10" with movement and she was unable to stand out of her chair or ambulate. She called her neighbor for assistance with pain medications and reports taking 10mg oxycodone at 10:00AM and a second round of 10mg oxycodone at 2:00PM (her home rx is for oxycodone 5mg q8h prn). Patient does report associated suicidal ideation secondary to the pain. She states, "if I could have gotten out of the chair to get to the pain medications by myself, I would have taken all of the pain medications and overdosed because I want to end this all." Patient confirms that this was not a fleeting thought; it has been persistent and she continues to have thoughts of suicide. Admission Exam Per Admitting Provider GENERAL: No acute distress. Well developed and well nourished. Vital signs reviewed. EYES: EOMI. Anicteric sclerae. HENT: Moist mucous membranes. No pharyngeal erythema or exudates. RESPIRATORY: Clear to auscultation bilaterally. No wheezing, rales, or rhonchi. CARDIOVASCULAR: Regular rate and rhythm. No murmurs. ABDOMEN: Soft, non-tender and non-distended. Normal bowel sounds. BACK: No spinous process tenderness to palpation. Normal paraspinal muscular tenderness to palpation. EXTREMITIES: Trace BLE edema. 5/5 strength in RLE, 4/5 strength in LLE. 5/5 strength in BUE. NEUROLOGIC: A/O x3. No focal neurological deficits. CN II-XII grossly intact, but not individually tested. PSYCHIATRIC: Cooperative. Reports + suicidal ideation with plan. Principal Diagnosis Compression fracture of thoracic and Lumbar vertebra non-traumatic. Discharge Exam Constitutional WD/WN, vitals as above cooperative and comfortable sitting up in bedside chair, eating breakfast, pleasant, smiling Eyes PERRL, conjunctivae normal, anicteric sclerae ENMT external ear and nose normal, oropharynx normal Respiratory normal respiratory effort; no respiratory distress and no labored breathing Musculoskeletal Head/Neck/Chest: normocephalic and head atraumatic Skin no rashes, warm and dry Neurologic moves all extremities and awake bilateral extremities neuro vascularly intact bilaterally Psychiatric A+Ox3, euthymic affect Suicidal Thoughts: denies suicidal thoughts, denies suicidal plan and denies suicidal intent Homicidal Thoughts: denies homicidal thoughts Discharge Data Allergies Allergy/AdvReac Type Severity Reaction Status Date / Time adhesive Allergy Intermediate Redness of Verified 05/16/20 08:02 Skin Consultations 05/13/20 17:38 ED Decision to Admit Stat 05/13/20 20:16 Consult Case Management - Discharge Planning Routine Consult Orthopedic Surgery Routine 05/14/20 02:07 Consult Psychiatry Routine Procedures Performed Operation Date: 05/16/20 08:15 Actual Procedures p L1 and L2 Kyphoplasty(Not Applicable) - Heath Roass DO Ordered Studies 05/14/20 11:14 MR lumbar spine wo con Routine 05/16/20 08:15 FL fluoroscopy <1hr Routine FL lumbar spine 2-3V Routine Hospital Course (1) Back pain: Alejandra Ragsdale is an 79 year old family with PMHx of osteopenia, hypothyroidism, GERD, hyperlipidemia, and known compression fractures in the thoracic and lumbar spine admitted for intractable back pain. She was treated surgically with L1/L2 kyphoplasty. She tolerated the surgery well and was very pleased with pain relief on discharge. Compression fractures of thoracic vertebrae and lumbar vertebrae w/ hx of osteopenia - Discharge on POD#1 s/p L1/L2 kyphoplasty - According to previous records - Thoracic XR 05/07/20 w/ no acute fx seen, severe compression deformity fo T12 w/ mildly retropulsed fragments, mild superior plate compression deformities of T11 and L2, minimal superior plate compression deformity of T7 - Lumbar XR 05/07/20 w/ slight progression of the mild to moderate superior endplate compression fracture at L2 - Continue use of TLSO brace - Continue Calcitonin nasal daily, and Flexeril daily for pain control - Continue home fosfomax 70mg po 1x/week (takes on Sundays) and Vitamin D 2000 IU po daily; Vitamin D2 (ergocalciferol) 50,000 units every Wednesday which was started on day of discharge. - PT and OT saamntha completed here and discharged to [facility] for further rehab. - Ortho Spine consulted: L1 and L2 Kyphoplasty completed today (2) Verbalizes suicidal thoughts: On admission she verbalized suicidal ideations secondary to pain. She was evaluated via Psych consult. On day of discharge, she denied any thoughts of self harm stating, "I just said that in the heat of the moment. I would never do anything." (3) Osteopenia: she was found to have a Vit D level of 19.6 from 04/04/20. Since acute compression fractures, she was started on Vit D (Ergocalciferol) 50,000, to be taken once a week, every Wednesday. It was recommended she should have follow up Vit D level in 3 months as outpatient. (4) Compression fracture of thoracic vertebrae, non-traumatic: as above (5) Compression fracture of lumbar vertebra, non-traumatic: as above. Total Time Total Time Spent Total Time Spent (In Minutes): <30 Total Time Includes: Examination of the Patient, Discharge Planning, Medication Reconciliation and Communication With Other Providers Discharge Plan Discharge Items Patient Disposition: Transfer Shelter Fac Reason For Visit: INTRACTABLE BACK PAIN W HX OF MULTIPLE COMPRESSION Discharge Diagnosis: multiple Activity: Per Instructions section Non-emergency contact: Primary Care Provider Call non-emergency contact if: you have any medication questions, your symptoms worsen and you have a fever Follow-up/Referrals: Dania Pacheco MD [Primary Care Provider] - Diet: Regular Addtl Attending Provider Instructions: You were seen and admitted following an exacerbation of your lower back pain following a fall from standing into a chair. You were found to have compression fractures of the vertebral body of your Lumbar spine. During this time, we added two medications to better control the muscle spasms and to control the bony pain that you are experiencing. - Calcitonin Nasal Enochs; 1 spray each nostril daily. - Cyclobenzaprine 5mg, take every morning as needed. As a result of this we were able to better get control of your pain. You also underwent a surgical procedure called Kyphoplasty of your Lumbar Spine at the Levels of L1 and L2. Now that you are being discharged to [facility] these medications will be beneficial for continuing to limit your pain over the coming several days as you continue to improve your strength with rehab. These medications you should continue to take daily for improved control of your pain. Also, you were found to have low levels of Vitamin D, which contributes to bone health. We recommend that you take a Vitamin D supplements. A prescription for two medications were sent to your pharmacy. - Vitamin D2 (Ergocalciferol) 50,000 units; this medication is taken once a week. We started this medication on day of discharge; take your next dose next Wednesday. This medication will be taken once every Wednesday. - Vitamin D3 2,000 units, one pill, every morning, every day. You will need to take this medication and then get a repeat level of Vitamin D in about 3 months/12 weeks, around August 2020. This order for repeat Vitamin D level can be placed by your family medicine/Primary Care Physician. Pending Studies at Discharge: No Stand-Alone Forms: My [facility] Skilled Items Patient informed of condition?: Yes DNR: Yes Discharge Level of Care: Acute rehab Communicable Disease: No Discharge Prognosis: Stable Lines: None Urinary Catheter: No Medications and DC Order Prescriptions: New cyclobenzaprine 5 mg Tablet 5 mg PO QAM 10 Days Qty: 10 RF: 0 calcitonin (salmon) 200 unit/actuation Enochs,Non-Aerosol 1 spray NA DAILY 30 Days Qty: 3.7 RF: 0 ergocalciferol (vitamin D2) 1,250 mcg (50,000 unit) Capsule 50,000 unit PO Fr 84 Days Qty: 12 RF: 0 cholecalciferol (vitamin D3) 25 mcg (1,000 unit) Capsule 2,000 unit PO QAM Qty: 30 RF: 0 Continued alendronate [Fosamax] 70 mg tablet 70 mg PO .COMPLEX Qty: 30 RF: 0 pantoprazole 40 mg tablet,delayed release (DR/EC) 40 mg PO QAM RF: 0 acetaminophen [Tylenol] 325 mg Tablet 325 mg PO Q4H PRN (Reason: Mild Pain (Scale Score 1-4)) RF: 0 polyethylene glycol 3350 [Miralax] 17 gram Powder In Packet 17 g PO QAM RF: 0 famotidine 20 mg tablet 20 mg PO BID RF: 0 docusate sodium 100 mg capsule 100 mg PO BID RF: 0 Flovent Diskus 250 mcg/actuation blister with device 1 inh INHALATION BID RF: 0 simvastatin 10 mg tablet 10 mg PO HS RF: 0 levothyroxine 75 mcg capsule 75 mcg PO DAILYBB RF: 0 lidocaine 5 % adhesive patch,medicated 1 patch TOP DAILY PRN (Reason: pain) Qty: 15 RF: 0 oxycodone [Roxicodone] 5 mg tablet 5 mg PO Q8H PRN (Reason: pain) Qty: 15 RF: 0 Discharge Orders: Discharge Order (Routine); Ordered 05/17/20 Ordered By: Roland Carpenter Admission Data Admit Date/Time: 05/14/20 13:34 Attending Provider: Beto Wheat Admit Provider: Krystal Guzmán Primary Care Provider: Dania Pacheco Other Providers: [facility],Home Healthcare ; [facility], ; Case Ragsdale ; Heath Rosas ; Brittany Segal Other Interventions: Discharge Summary Assessment (RN) Last Done: 05/17/20 15:59 Supervising Physician Co-Signing Physician Notes I personally examined the patient and verified all clemente points of history and exam, discussed case, and agree with decision making with Dr Carpenter Continues to see significant improvement in pain compared to preop. Notes she does have some soreness in obviously the pain is not a 0, but she is very pleased with her results, improvement, and progress vitals noted sitting in a chair, no distress. heent nc at mmm breathing unlabored no accessory muscles good effort Osteoporotic compression fractures with intractable painpain improved post kyphoplasty (risks and benefits were discussed extensively preop, and patient opted to proceed, understanding the potential future risk of fractures around the kyphoplasty segment, but with the benefit of probable immediate pain reliefwhich she got). Definitely will need aggressive outpatient bone health managementfor now vitamin D 2000 IU daily, 50,000 IU weeklyrepeat D level in about 3 months, and then yet again at least 1 more time next winterin 3 months to ensure that this degree of supplementation has gotten her to an adequate level, and then again in the middle of winter to ensure that she does not bottom out low again. Additionally recommended calcium 500 mg 3 times daily, and likely to start a bisphosphonatebut I will defer that to the judgment of her PCP. Stable for rehab, Otherwise as above Resident Activity Tracking Resident Involvement: Resident Care Provided Care Provided: Adult Hospital Medicine
--- NOTE | 2020-05-17 12:48 | Orthopedic Progress Note ---
Date of Service May 17, 2020 Assessment & Plan (1) Compression fracture of lumbar vertebra, non-traumatic: Admission and Anticipated Discharge Date Admission Date: May 14, 2020 This time we will continue to increase her activity as tolerated. She is to wear her brace when out of bed and ambulating. We will see her in 2 weeks in the office for follow-up. Subjective Back pain is markedly improved. Physical Exam Physical Exam: On exam she is in the chair at the bedside. She is comfortable. She has good strength testing lower extremities. Results & Data ([facility]) Vital Signs (Past 12 Hours) Vital Signs Temp Pulse Resp BP Pulse Ox 05/17/20 07:33 36.6 C 73 16 155/75 H 94 05/17/20 02:39 36.6 C 65 18 131/74 94 (1) Compression fracture of lumbar vertebra, non-traumatic Encounter type: initial encounter Lumbar vertebra fracture level: L2 Qualified Code(s): M48.56XA - Collapsed vertebra, not elsewhere classified, lumbar region, initial encounter for fracture
--- NOTE | 2020-05-17 18:18 | Billing Data ---
Date of Service May 17, 2020 Coding Level of Care Code D/C Day Management <30 mins
[2020-05-19] MEDS ORDERED: ALENDRONATE SODIUM 70 MG TAB PO SCH (09:00)
== END 2020-05-17 16:35 ==
LOC: ED 15:06 → 3N 15:06 → SUATTDRO 19:15 → 3N 20:02

== ENCOUNTER 2022-06-21 08:54 | Inpatient (IN) ==
[2022-06-21] MEDS ORDERED: MoRPHine SULFATE 4 MG/ML 1 ML CARP\\VIAL IV STA ×2 (09:02→10:04)
[2022-06-21] MEDS ORDERED: ONDANSETRON INJ 2 MG/ML 2 ML VIAL IV STA (09:02)
--- NOTE | 2022-06-21 09:06 | Emergency Department Note ---
Impression & Plan Back pain, Compression fracture ED Provider Note NAME: DIONICIO PENALOZA AGE: 82 SEX: F : 1940 ARRIVES VIA: Ambulance INFORMANT: Patient ED PROVIDER(S): Beto Darnell DO CHIEF COMPLAINT: back pain HPI: Patient is an 82-year-old female who presents to the ER for severe lower lumbar paraspinal pain. This started 2 weeks ago following sitting on the toilet for over half hour straining trying to have a bowel movement. Pain is significantly worsened with twisting, turning, bending and any movement. She denies any weakness or numbness. She has significant pain with movement. No fevers. No trauma. She was seen and evaluated here within the past week. Since being home she was switched from oxycodone to steroids as well as muscle relaxers. Pain has gotten significantly worse. She is unable to care for self. PAST MEDICAL HISTORY:See Below PAST SURGICAL HISTORY:See Below FAMILY HISTORY:See Below SOCIAL HISTORY:See Below HOME MEDICATIONS:See Below ALLERGIES:See Below VITALS:See Below PHYSICAL EXAMINATION: GENERAL: Sitting up in bed, alert, well appearing, well nourished, no distress, non-toxic EYE EXAM: normal conjunctiva. OROPHARYNX: no exudate, no erythema, lips, buccal mucosa, and tongue normal and mucous membranes are moist NECK: supple, no nuchal rigidity, no adenopathy, non-tender LUNGS: Clear to auscultation. Normal chest wall mechanics HEART: no murmurs, S1 normal and S2 normal ABDOMEN: abdomen soft, non-tender, normo-active bowel sounds, no masses, no rebound or guarding. BACK: Back is symmetrical on inspection and there is no deformity, no midline tenderness, no CVA tenderness. SKIN: no rashes and no bruising UPPER EXTREMITIES: upper extremities are grossly normal. LOWER EXTREMITIES: Flexion and extension of the hips, knees, ankles, and EHL 5/5 bilaterally. Gross sensation is intact. DPs are 2/4 bilateral. Patellar and Achilles reflexes are 2/4 bilateral NEURO EXAM: Normal sensorium, cranial nerves II-XII grossly intact, normal speech, no gross weakness of arms, no gross weakness of legs. MEDICAL DECISION MAKING: Patient is an 82-year-old female who presents the ER for above-stated complaint. IV was established blood work was obtained. External records were reviewed. Labs show no significant leukocytosis or anemia. BMP along with LFTs was unremarkable. COVID was negative. X-rays of the lumbar spine showed no acute fracture or dislocation. Patient was given IV morphine x2. Updated bedside. No signs of cauda equina. No fevers. Discharged to follow-up PCP as an outpatient. Triage Nursing notes reviewed. Limited review of prior medical records performed Vital Signs: reviewed and remarkable for HTN Differential diagnosis: Musculoskeletal, disc herniation, fracture, metastatic disease, cord compression, discitis, sciatica, cauda equina, infection, aortic disease, renal colic, gastrointestinal, as well as other pathologies. ER treatment provided: See below Diagnostics interpreted by me include EKG and cardiac monitoring as listed below: -Cardiac Monitoring: An order was placed for continuous cardiac monitoring. The monitor shows a rate of 80 with sinus rhythm. -ECG: none -Laboratory studies:Interpreted by me as stated above in MDM and shown below. 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" Hypothyroidism Ingrown left big toenail Intractable back pain Left leg cellulitis RESOLVED Osteoarthritis Osteopenia Right shoulder pain Surgical History History of colonoscopy History of tooth extraction Hx of bilateral cataract extraction S/P carpal tunnel release S/P cholecystectomy S/P tonsillectomy Family History Grandfather (Paternal) Colorectal cancer Lung cancer Grandfather (Maternal) Myocardial infarction Mother Stroke Grandmother Rectal cancer Uterine cancer Denies family history of Ovarian cancer Prostate cancer Breast cancer Social History Smoking Status: Former smoker Tobacco Type: Cigarettes Age Started Using Tobacco: 12; Age Quit Using Tobacco: 56; packs per day: 2; Cigarettes Per Day: 20-40; Second Hand Exposure: No; Hx Alcohol Use: No Hx Substance Use: No Preferred Language: Kiswahili Communication Ability: Effective Visual Impairment: No Limitations Hearing Ability: Normal Disability Rater Required: No marital status: Single Current Living Situation: Alone current occupational status: retired Feels Safe at Home: Yes Childhood Exposure to Second-Hand Smoke: Yes (mother and sister in house) Dental Care, Regularly: Yes Physical Activity Frequency: Does not Exercise Seatbelt Use: always Sunscreen Use: Yes Assistive Devices: Walker Allergies Allergies Allergy/AdvReac Type Severity Reaction Status Date / Time adhesive Allergy Intermediate Redness of Verified 06/19/22 13:34 Skin Home Meds Home Medications Medication Instructions Recorded Confirmed acetaminophen 325 mg tablet 325 mg PO Q4H PRN Mild Pain (Scale 05/07/20 06/21/22 (Tylenol) Score 1-4) calcium phosphate 600 mg-vit D3 1 tab PO BID 10/02/20 06/21/22 500 unit-magnesium oxide 50 mg tablet cholecalciferol (vitamin D3) 25 3,000 unit PO QAM 01/09/21 06/21/22 mcg (1,000 unit) capsule cyanocobalamin (vitamin B-12) 1,000 mcg PO DAILY 11/14/21 06/21/22 1,000 mcg capsule Previous Rx's Medication Instructions Recorded simvastatin 10 mg tablet 10 mg PO HS #90 tabs 07/15/21 Incentive Spirometer #1 ea 01/06/22 fluticasone propionate 250 1 inh inhalation BID #180 ea 02/17/22 mcg/actuation blister powder for inhalation (Flovent Diskus) levothyroxine 75 mcg tablet 75 mcg PO DAILY #90 tabs 02/17/22 lisinopril 10 mg tablet 10 mg PO DAILY #90 tabs 04/07/22 ondansetron 4 mg disintegrating 4 - 8 mg PO Q8H PRN nausea and 06/14/22 tablet vomiting #14 tabs cyclobenzaprine 5 mg tablet 10 mg PO HS PRN muscle spasm #10 06/19/22 tabs prednisone 10 mg tablet 10 mg PO .COMPLEX back pain #30 06/19/22 tabs Results & Data (ED) Vital Signs Vital Signs - 24 hr 06/21/22 08:58 06/21/22 09:04 06/21/22 09:17 Temperature 36.6 C Temperature Source Oral Pulse Rate 91 H 72 Respiratory Rate 18 Respiratory Effort / Characteristics Non-Labored Spontaneous Respiratory Depth Normal Blood Pressure 199/65 H Blood Pressure Mean 109 Pulse Oximetry 98 99 Oxygen Delivery Method Room Air Room Air Sepsis Recent Fever Within 48 Hours No Sepsis New/Unexplained Change in Mental Status No Sepsis Action Taken by Nursing No Action Required Laboratory Data 06/21/22 09:05 06/21/22 09:05 Lab Results 06/21/22 06/21/22 06/21/22 Range/Units 09:05 09:05 09:05 WBC 7.80 (4.8-10.8) K/ul RBC 5.15 (4.20-5.40) M/uL Hgb 15.8 (12.0-16.0) g/dl Hct 44.4 (37.0-47.0) % MCV 86.2 (80.0-100.0) fL MCH 30.7 (25.0-34.0) pg MCHC 35.6 (32.0-36.0) g/dL RDW Std Deviation 42.3 (36.4-46.3) fL RDW Coeff of Jean Carlos 13.5 (11.5-14.5) % Plt Count 177 (130-400) K/uL MPV 8.7 L (9.4-12.4) fL Immature Gran % (Auto) 0.4 % Neut % (Auto) 77.7 % Lymph % (Auto) 17.1 % Stafford % (Auto) 4.7 % Eos % (Auto) 0.0 % Baso % (Auto) 0.1 % Neut # (Auto) 6.06 (1.40-6.50) K/uL Lymph # (Auto) 1.33 (1.2-3.4) K/uL Stafford # (Auto) 0.37 (0.11-0.59) K/uL Eos # (Auto) 0.00 (0-0.50) K/uL Baso # (Auto) 0.01 (0-0.2) K/uL Immature Gran # (Auto) 0.03 (0.01-0.20) K/uL Sodium 136 (136-145) mmol/L Potassium 4.1 (3.5-5.1) mmol/L Chloride 99 (98-107) mmol/L Carbon Dioxide 27 (21-32) mmol/L Anion Gap 10 (3-11) BUN 20 (6-23) mg/dl Creatinine 0.88 (0.6-1.2) mg/dl Est Cr Clr Drug Dosing 49.4 ml/min Est GFR ( Amer) 69.9 ml/min Est GFR (Non-Af Amer) 60.3 ml/min BUN/Creatinine Ratio 22.7 H (10-20) Glucose 105 H (70-99(Fasting)) mg/dl Calcium 9.6 (8.6-10.3) mg/dl Total Bilirubin 0.8 (0.2-1.0) mg/dl AST 27 (13-39) U/L ALT 14 (7-52) U/L Alkaline Phosphatase 62 (34-104) U/L Total Protein 7.5 (6.0-8.3) gm/dl Albumin 4.2 (3.4-5.0) gm/dl Globulin 3.3 (2.5-4.0) gm/dl Albumin/Globulin Ratio 1.3 (0.9-2) SARS-CoV-2, RNA, NAAT NEGATIVE (NEGATIVE) Administered Medications Lidocaine (Lidocaine 5% 1 Patch) 1 patch TD QAM LAYTON Stop: 07/21/22 10:59 Last Admin: 06/21/22 11:58 Dose: 1 patch Documented By: DLS Discontinued Medications Morphine Sulfate (Morphine Sulfate 4 Mg/Ml 1 Ml Carp\\Vial) 4 mg IV NOW STA Stop: 06/21/22 09:03 Last Admin: 06/21/22 09:19 Dose: 4 mg Documented By: HERB Morphine Sulfate (Morphine Sulfate 4 Mg/Ml 1 Ml Carp\\Vial) 4 mg IV NOW STA Stop: 06/21/22 10:05 Last Admin: 06/21/22 10:09 Dose: 4 mg Documented By: KULWINDER Ondansetron HCl (Ondansetron Inj 2 Mg/Ml 2 Ml Vial) 4 mg IV NOW STA Stop: 06/21/22 09:03 Last Admin: 06/21/22 09:19 Dose: 4 mg Documented By: HERB Imaging Data Radiologist's Impression: Lumbar Spine X-Ray 06/21/22 09:58 XR lumbar spine 2-3V CLINICAL HISTORY: Back pain. COMPARISON STUDY: Lumbar spine radiographs May 07, 2020, lumbar spine MRI May 14, [address] June 14, 2022. FINDINGS: L1 and L2 vertebroplasties are noted. There is an old stable severe T12 compression fracture. Compression fracture of the superior endplate of L3 is noted. There is 30% loss of vertebral body height. There is no retropulsion by radiography. This fracture is likely acute to subacute. This is new since MRI of May 14, 2020. There are no additional fractures. Moderate multilevel facet arthrosis is present. There is moderate disc space narrowing at L5-S1. IMPRESSION: 1. L3 superior endplate compression fracture with 30% loss of vertebral body height. No definite retropulsion. This fracture is likely acute to subacute. 2. Old T12, L1 and L2 compression fractures status post L1 and L2 vertebroplasty. ACT 112: Negative or not required by law. Electronically signed by: Cruz Arroyo M.D. 06/21/2022 11:31 AM Discharge Plan Visit Data Chief Complaint: Back Injury/Pain ED Provider: Beto Darnell Discharge Problem: Back pain, Compression fracture Patient Disposition: Admitted As Inpatient Discharge Instructions Interventions: ED Discharge Assessment Last Done: 06/21/22 11:09
[2022-06-21 09:28] LABS: Basophils # (auto) 0.01 K/uL (0-0.2); Basophils % (auto) 0.1 %; Hematocrit (blood only) 44.4 % (37.0-47.0); Hemoglobin 15.8 g/dl (12.0-16.0); Immature Granulocytes # (auto) 0.03 K/uL (0.01-0.20); Immature Granulocytes % (auto) 0.4 %; Lymphocytes # (auto) 1.33 K/uL (1.2-3.4); Lymphocytes % (auto) 17.1 %; Mean Corpuscular Hemoglobin 30.7 pg (25.0-34.0); Mean Corpuscular Hgb Conc 35.6 g/dL (32.0-36.0); Mean Corpuscular Volume 86.2 fL (80.0-100.0); Mean Platelet Volume 8.7 fL (9.4-12.4); Monocytes # (auto) 0.37 K/uL (0.11-0.59); Monocytes % (auto) 4.7 %; Neutrophils # (auto) 6.06 K/uL (1.40-6.50); Neutrophils % (auto) 77.7 %; Platelet Count 177 K/uL (130-400); RDW Coefficient of Variation 13.5 % (11.5-14.5); RDW Standard Deviation 42.3 fL (36.4-46.3); Red Blood Count 5.15 M/uL (4.20-5.40)
[2022-06-21 09:40] LABS: Albumin Globulin Ratio 1.3 (0.9-2); Albumin Level 4.2 gm/dl (3.4-5.0); BUN Creatinine Ratio 22.7 (10-20); Bilirubin,Total 0.8 mg/dl (0.2-1.0); Calcium 9.6 mg/dl (8.6-10.3); Creatinine Clr Calc Pharmacy 49.4 ml/min; Est GFR (African American) 69.9 ml/min; Est GFR (Non-African American) 60.3 ml/min; Globulin 3.3 gm/dl (2.5-4.0); Potassium 4.1 mmol/L (3.5-5.1); Total Protein 7.5 gm/dl (6.0-8.3)
--- NOTE | 2022-06-21 10:24 | History & Physical Report ---
Date of Service June 21, 2022 Assessment & Plan (1) Low back pain: Plan: -Admit to med/surge -The patient is currently afebrile, hemodynamically stable, and stable on RA -It appears that she exacerbated her chronic low back pain with prolong episodes of sitting on the toilet last week while constipated -She is without red flag symptoms, rash, radiculopathy, and is now having bowel movements -Currently lives alone with reduced mobility from pain, will need evaluation by PT/OT, consults ordered -Will continue with broad pain regimen including heat, lidocaine patches, q6h tylenol, 5 mg PO Flexeril TID, and 1 mg IV morphine q4h prn pain 6+ -Will hold additional steroids at this time as she has not seen a benefit and she is without radicular symptoms -Continue bowel regimen with BID colace and prn miralax -Fall precautions ordered -BL SCD's and Sub-Q lovenox for DVT PPX -AM CBC and BMP (2) GERD (gastroesophageal reflux disease): Plan: -Will give 40 mg PO pantoprazole now then continue daily while admitted for stress ulcer PPX (3) Asthma: Plan: -Continue home breathing treatments -Incentive spirometry and prn albuterol (4) Hypertension: Plan: -Stable at 158/65 -Will give am dose of lisinopril now and continue daily (5) Hyperlipidemia: Plan: -Conitnue statin (6) Lumbar compression fracture: (7) Osteoporosis with current pathological fracture: Plan The patient was discussed with Dr. Ragsdale at the time of the admission History of Present Illness Chief Complaint: Intractable low back pain Primary Care Provider: NO PCP Alejandra is an 82 year old female with a PMH significant for osteopenia, previous thoracic and lumbar compression fractures S/P L1 and L2 Kyphoplasty with Dr. Rosas in 2020, hypothyroidism, GERD, and hyperlipidemia who presented to the [facility] ED on 06/21/22 with intractable back pain. The patient first presented to the [facility] ED on 06/14/22 for the same symptoms, CT of the lumbar spine at that time was negative for new findings and showed her chronic thoracic and lumbar spine pathology. She was treated with IV narcotics and discharged home with a short course of oxycodone. She was seen for ER FU with her PCP on 06/19/22 and was started on a 12 days taper of prednisone and prn Flexeril. Today she was found to be hypertensive at 199/65 otherwise stable vitals. CBC and CMP were WNL and she was found to be covid 19 negative. Prior to admission she was given 8 total MG of IV morphine and 4 mg IV Zofran. At the time of the exam the patient was sitting in bed in no acute distress with her Goddaughter sitting bedside, history was obtained from both. She states that her acute on chronic back pain initial started prior to her ED visit on 06/14. She was experiencing constipation and sitting on the toilet, straining for 45+ minutes. After doing this she noticed acute lumbar back pain which runs across her low back, just superior to her sacrum. She denies any radiation of the pain. Since then, despite visits to the ED and her PCP her pain has persisted. She uses a walker to ambulate, at this time her mobility is severely reduced. She lives at home, alone and does not currently have home health. She feels as though she gets some relief with the flexeril she has been using but does not think the prednisone or oxycodone have provided relief. The morphine she received in the ED has given her some relief today. She denies recent fevers, chills, unilateral extremity weakness, lost of bowel or bladder function, saddle anesthesia, chest pain, SOB, abd pain, nausea, vomiting, dysuria, hematuria, and recent falls. After being prescribed a bowel regimen, including a fleet enema, she is now having non-blood bowel movements. We discussed code status, she wishes to be a DNR/DNI and for her Goddaughter to make medical decisions for her if she cannot make them herself. Please refer to Dr. Ragsdale's attestation for any changes to the treatment plan. Allergies Allergy/AdvReac Type Severity Reaction Status Date / Time adhesive Allergy Intermediate Redness of Verified 06/19/22 13:34 Skin Home Medications Medication Instructions Recorded Confirmed Type acetaminophen 325 mg tablet 325 mg PO Q4H PRN Mild Pain (Scale 05/07/20 06/21/22 History (Tylenol) Score 1-4) calcium phosphate 600 mg-vit D3 1 tab PO BID 10/02/20 06/21/22 History 500 unit-magnesium oxide 50 mg tablet cholecalciferol (vitamin D3) 25 3,000 unit PO QAM 01/09/21 06/21/22 History mcg (1,000 unit) capsule simvastatin 10 mg tablet 10 mg PO HS #90 tabs 07/15/21 06/21/22 Rx cyanocobalamin (vitamin B-12) 1,000 mcg PO DAILY 11/14/21 06/21/22 History 1,000 mcg capsule Incentive Spirometer #1 ea 01/06/22 06/19/22 Rx fluticasone propionate 250 1 inh inhalation BID #180 ea 02/17/22 06/21/22 Rx mcg/actuation blister powder for inhalation (Flovent Diskus) levothyroxine 75 mcg tablet 75 mcg PO DAILY #90 tabs 02/17/22 06/21/22 Rx lisinopril 10 mg tablet 10 mg PO DAILY #90 tabs 04/07/22 06/21/22 Rx ondansetron 4 mg disintegrating 4 - 8 mg PO Q8H PRN nausea and 06/14/22 06/21/22 Rx tablet vomiting #14 tabs cyclobenzaprine 5 mg tablet 10 mg PO HS PRN muscle spasm #10 06/19/22 06/21/22 Rx tabs prednisone 10 mg tablet 10 mg PO .COMPLEX back pain #30 06/19/22 06/21/22 Rx tabs Past Med/Surg History Medical History (Updated 06/22/22 @ 09:17 by Case Ragsdale MD) GERD (gastroesophageal reflux disease) Hx of colonic polyps Hypertension ON ABOVE LIST BUT 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" Hypothyroidism Ingrown left big toenail Intractable back pain Left leg cellulitis RESOLVED Osteoarthritis Osteopenia Right shoulder pain Surgical History History of colonoscopy History of tooth extraction Hx of bilateral cataract extraction S/P carpal tunnel release S/P cholecystectomy S/P tonsillectomy Family History Grandfather (Paternal) Colorectal cancer Lung cancer Grandfather (Maternal) Myocardial infarction Mother Stroke Grandmother Rectal cancer Uterine cancer Denies family history of Ovarian cancer Prostate cancer Breast cancer Social History Smoking Status: Former smoker Tobacco Type: Cigarettes Age Started Using Tobacco: 12; Age Quit Using Tobacco: 56; packs per day: 2; Cigarettes Per Day: 20-40; Second Hand Exposure: No; Do You Dip or Chew Tobacco: No; Tobacco Cessation Education Requested by Patient: No Hx Alcohol Use: No Hx Substance Use: No Preferred Language: Faroese Communication Ability: Effective Visual Impairment: No Limitations Hearing Ability: Normal Doctor Podiatric Medicine Required: No Beliefs That Will Affect Care: None marital status: Single Current Living Situation: Alone Current Living Situation Comment: Lives alone with family/friends checking on her current occupational status: retired Other Information That Helps Us Care for You: No Feels Safe at Home: Yes Safety Concerns: Feels Safe At This Time Childhood Exposure to Second-Hand Smoke: Yes (mother and sister in house) Dental Care, Regularly: Yes Physical Activity Frequency: Does not Exercise Seatbelt Use: always Sunscreen Use: Yes Assistive Devices: Walker Physical Exam Physical Exam: Physical Exam: General: In no acute distress, stated age, well-nourished, good hygiene HEENT: Normocephalic, atraumatic, no scleral icterus, pupils around round, symmetrical, and reactive to light, moist mucus membranes, trachea midline, no thyromegaly Chest/Pulm: No respiratory distress, symmetrical chest expansion, clear breath sounds throughout Cardiac: RRR, no murmurs noted Abdomen: Negative for ascites and bruising, normoactive bowel sounds, soft, non-tender to palpation throughout Musculoskeletal: No acute trauma on inspection and palpation of the cervical, thoracic, or lumbar spine. No tenderness to palpation directly over the spine. Pain with palpation of the paraspinal muscles in the low back. Patient gets some relief leaning forward. Symmetrical ROM in BL hips, knees, and ankles Extremities: Radial, dorsalis pedis, and posterior tibial pulses are intact and symmetrical, no edema noted in the BL LE's Skin: Warm, dry, no rashes , lesions, or scars noted Neuro: Alert and oriented to person, place, month, year, and president, no focal defects, CN II-XII tested and intact, symmetrical strength in the BL LE's, 2+ patellar and Achilles reflexes Psych: No acute distress, calm and cooperative during the exam Results & Data Results & Data Vital Signs (Past 12 Hours) Vital Signs Temp Pulse Resp BP Pulse Ox O2 Del Method 06/21/22 09:17 72 06/21/22 09:04 99 Room Air 06/21/22 08:58 36.6 C 91 H 18 199/65 H 98 Room Air Laboratory Results Abnormal lab results 06/21/22 06/21/22 Range/Units 09:05 09:05 MPV 8.7 L (9.4-12.4) fL BUN/Creatinine Ratio 22.7 H (10-20) Glucose 105 H (70-99(Fasting)) mg/dl Diagnostic Findings CT lumbar spine wo con CLINICAL HISTORY: low back pain TECHNIQUE: Multidetector row helical CT of the lumbar spine was performed wit hout administration of intravenous contrast. Coronal and sagittal reformations were obtained. Automated dose lowering techniques and/or adjustment according to patient size were utilized for this exam. CT DOSE: 1029.53 mGy.cm Comparison: Comparison is made to MRI spine 05/14/2020 FINDINGS: Cemented arthroplasties are seen with T12-L2 compression deformities. No acute fractures are identified. Vertebral body heights and disk spaces are well maintained. Vertebral body alignment is within normal limits. Atherosclerotic changes are seen in the aorta. Obstructive stones are seen in the kidney. IMPRESSION: Degenerative changes are seen with prior compression fractures and cement arthroplasties. No acute fractures are seen. ACT 112: Negative or not required by law. Electronically signed by: John Lott M.D. 06/14/2022 2:19 PM Dictated:06/14/22 1412 Transcribed: 06/14/22 1412 Code Status & VTE Plan Code Status DNR/DNI VTE Prophylaxis Plan VTE Prophylaxis will be ordered: Yes Supervising Physician Co-Signing Physician Notes I personally saw and examined the patient. I verified all clemente points and agree with Quinton Faith PA-C with the following exceptions and/or additions: 82 year old female admission for acute on chronic back pain. Recent exacerbation related to constipation. No radicular symptoms. O/E A&Ox3, HS RRR, no murmurs, Chest CTAB, Abdo SNT, Central lumbar spinal pain on palpation A/P Osteoporotic L3 compression fracture - not reported on lumbar spine CT but appears to be new since L-spine XR from May 16. Suspect this is causing her pain and unlikely to respond to steroids therefore discontinued. Doubtful calcitonin spray will useful since she is already on Reclast. Vitamin D level normal in March and has this checked regularly so no need to repeat. Back brace previously unhelpful and she does not wish to try this. Given prior need for kyphoplasty which helped alot with her pain previously and well known to Dr Rosas will consult for ongoing advice since very limited options with this patient. Constipation - laxatives as needed to avoid this PG Care Time/CCT Total # of Minutes Spent Total Time Spent with Patient: Total time spent is greater than 50% in coordination of care (as documented) at patient's floor/unit and/or counseling patient: Coding [place] [address] INT INP/OBS CARE 2/55MIN Patient Type Established Medical Decision Making Moderate Complexity Diagnoses Low back pain M54.50 Back pain laterality: bilateral Chronicity: acute Sciatica presence: without sciatica GERD (gastroesophageal reflux disease) K21.9 Asthma J45.909 Hypertension I10 Hyperlipidemia E78.5 Lumbar compression fracture S32.000A Osteoporosis with current pathological fracture M80.00XA (1) Low back pain Back pain laterality: bilateral Chronicity: acute Sciatica presence: without sciatica Qualified Code(s): M54.50 - Low back pain, unspecified
[2022-06-21] MEDS ORDERED: PANTOprazole 40 MG TAB PO STA (11:12)
[2022-06-21] MEDS ORDERED: CYCLOBENZAPRINE HCL 5 MG TAB PO ONE (11:15)
[2022-06-21] MEDS ORDERED: ACETAMINOPHEN 325 MG TAB PO ONE (11:15)
[2022-06-21] MEDS ORDERED: lisinopril 10 MG TAB PO ONE (11:15)
--- NOTE | 2022-06-21 11:33 | XRay Report ---
XR lumbar spine 2-3V CLINICAL HISTORY: Back pain. COMPARISON STUDY: Lumbar spine radiographs May 07, 2020, lumbar spine MRI May 14, [address] spine [address] June 14, 2022. FINDINGS: L1 and L2 vertebroplasties are noted. There is an old stable severe T12 compression fractur e. Compression fracture of the superior endplate of L3 is noted. There is 30% loss of vertebral body height. There is no retropulsion by radiography. This fracture is likely acute to subacute. This is n ew since MRI of May 14, 2020. There are no additional fractures. Moderate multilevel facet arthrosis is present. There is moderate disc space narrowing at L5-S1. IMPRESSION: 1. L3 superior endplate compression fracture with 30% loss of vertebral body height. No definite retr opulsion. This fracture is likely acute to subacute. 2. Old T12, L1 and L2 compression fractures status post L1 and L2 vertebroplasty. ACT 112: Negative or not required by law. Electronically signed by: Cruz Arroyo M.D. 06/21/2022 11:31 AM
[2022-06-21] MEDS ORDERED: POLYETHYLENE (MIRALAX) 17 GM PACK PO PRN (11:56)
[2022-06-21] MEDS ORDERED: ALBUTEROL 0.5% NEB SOLN 2.5 MG/0.5 ML VIAL NEB PRN (11:56)
[2022-06-21] MEDS: LIDOCAINE 5% 1 PATCH TD SCH (11:58)
[2022-06-21] MEDS: ENOXAPARIN INJ 40 MG/0.4 ML SYR SQ SCH (15:36)
[2022-06-21] MEDS: MoRPHine SULFATE 2 MG/ML CARP IV PRN (16:51)
[2022-06-21] MEDS: ACETAMINOPHEN 325 MG TAB PO SCH (17:19)
[2022-06-21] MEDS: SIMVASTATIN 10 MG TAB PO SCH (21:37)
[2022-06-21] MEDS: DOCUSATE SODIUM 100 MG CAP PO SCH (21:40)
[2022-06-21] MEDS: CYCLOBENZAPRINE HCL 5 MG TAB PO SCH (21:58)
[2022-06-22] MEDS: ACETAMINOPHEN 325 MG TAB PO SCH ×4 (01:47→17:51)
[2022-06-22] MEDS: LEVOTHYROXINE SODIUM 75 MCG TABLET PO SCH (06:36)
[2022-06-22 06:37] LABS: Hematocrit (blood only) 38.1 % (37.0-47.0); Hemoglobin 13.2 g/dl (12.0-16.0); Mean Corpuscular Hemoglobin 30.3 pg (25.0-34.0); Mean Corpuscular Hgb Conc 34.6 g/dL (32.0-36.0); Mean Corpuscular Volume 87.6 fL (80.0-100.0); Mean Platelet Volume 8.9 fL (9.4-12.4); Platelet Count 119 K/uL (130-400); RDW Coefficient of Variation 13.9 % (11.5-14.5); RDW Standard Deviation 44.3 fL (36.4-46.3); Red Blood Count 4.35 M/uL (4.20-5.40); White Blood Count 4.46 K/ul (4.8-10.8)
[2022-06-22 06:53] LABS: BUN Creatinine Ratio 24.1 (10-20); Calcium 8.4 mg/dl (8.6-10.3); Creatinine Clr Calc Pharmacy 40.7 ml/min; Est GFR (African American) 54.6 ml/min; Est GFR (Non-African American) 47.1 ml/min; Potassium 4.1 mmol/L (3.5-5.1)
[2022-06-22] MEDS: CYCLOBENZAPRINE HCL 5 MG TAB PO SCH ×3 (08:21→20:12)
[2022-06-22] MEDS: lisinopril 10 MG TAB PO SCH (08:21)
[2022-06-22] MEDS: LIDOCAINE 5% 1 PATCH TD SCH (08:22)
[2022-06-22] MEDS: FLUTICASONE FUROATE 200MCG 14 PUFFS/INHALER INH SCH (08:22)
[2022-06-22] MEDS: DOCUSATE SODIUM 100 MG CAP PO SCH ×3 (08:22→20:34)
[2022-06-22] MEDS: ENOXAPARIN INJ 40 MG/0.4 ML SYR SQ SCH (08:22)
[2022-06-22] MEDS: MoRPHine SULFATE 2 MG/ML CARP IV PRN ×3 (08:32→20:32)
[2022-06-22] MEDS ORDERED: PANTOprazole 40 MG TAB PO SCH (09:00)
--- NOTE | 2022-06-22 10:18 | Orthopedic Consultation ---
Date of Consultation June 22, 2022 Assessment & Plan (1) Osteoporosis with current pathological fracture: Assessment worsening back pain possible fracture. Plan at this time and strongly considering an MRI of the lumbar spine for further anatomic detail and acute versus chronic fracture patterns. Patient understands agrees. Maintain bedrest at this time. History of Present Illness Reason for Consultation: Lumbosacral back pain Attending Physician: Racquel Mahmood MD History of Present Illness This is a very pleasant 82-year-old female who presents with chronic persistent back pain. She denies any specific trauma fall or event. Does not radiate down the legs. She denies any numbness or tingling lower extremities. She is quite uncomfortable with any range of motion or activity. Brace was attempted at home provided no relief. Allergies Allergy/AdvReac Type Severity Reaction Status Date / Time adhesive Allergy Intermediate Redness of Verified 06/19/22 13:34 Skin Home Medications Medication Instructions Recorded Confirmed Type acetaminophen 325 mg tablet 325 mg PO Q4H PRN Mild Pain (Scale 05/07/20 06/21/22 History (Tylenol) Score 1-4) calcium phosphate 600 mg-vit D3 1 tab PO BID 10/02/20 06/21/22 History 500 unit-magnesium oxide 50 mg tablet cholecalciferol (vitamin D3) 25 3,000 unit PO QAM 01/09/21 06/21/22 History mcg (1,000 unit) capsule simvastatin 10 mg tablet 10 mg PO HS #90 tabs 07/15/21 06/21/22 Rx cyanocobalamin (vitamin B-12) 1,000 mcg PO DAILY 11/14/21 06/21/22 History 1,000 mcg capsule Incentive Spirometer #1 ea 01/06/22 06/19/22 Rx fluticasone propionate 250 1 inh inhalation BID #180 ea 02/17/22 06/21/22 Rx mcg/actuation blister powder for inhalation (Flovent Diskus) levothyroxine 75 mcg tablet 75 mcg PO DAILY #90 tabs 02/17/22 06/21/22 Rx lisinopril 10 mg tablet 10 mg PO DAILY #90 tabs 04/07/22 06/21/22 Rx ondansetron 4 mg disintegrating 4 - 8 mg PO Q8H PRN nausea and 06/14/22 06/21/22 Rx tablet vomiting #14 tabs cyclobenzaprine 5 mg tablet 10 mg PO HS PRN muscle spasm #10 06/19/22 06/21/22 Rx tabs prednisone 10 mg tablet 10 mg PO .COMPLEX back pain #30 06/19/22 06/21/22 Rx tabs Patient History Medical History (Updated 06/22/22 @ 09:17 by Case Ragsdale MD) GERD (gastroesophageal reflux disease) Hx of colonic polyps Hypertension ON ABOVE LIST BUT 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" Hypothyroidism Ingrown left big toenail Intractable back pain Left leg cellulitis RESOLVED Osteoarthritis Osteopenia Right shoulder pain Surgical History History of colonoscopy History of tooth extraction Hx of bilateral cataract extraction S/P carpal tunnel release S/P cholecystectomy S/P tonsillectomy Family History Grandfather (Paternal) Colorectal cancer Lung cancer Grandfather (Maternal) Myocardial infarction Mother Stroke Grandmother Rectal cancer Uterine cancer Denies family history of Ovarian cancer Prostate cancer Breast cancer Social History Smoking Status: Former smoker Tobacco Type: Cigarettes Age Started Using Tobacco: 12; Age Quit Using Tobacco: 56; packs per day: 2; Cigarettes Per Day: 20-40; Second Hand Exposure: No; Do You Dip or Chew Tobacco: No; Tobacco Cessation Education Requested by Patient: No Hx Alcohol Use: No Hx Substance Use: No Preferred Language: Gambian Communication Ability: Effective Visual Impairment: No Limitations Hearing Ability: Normal Insole Coverer Required: No Beliefs That Will Affect Care: None marital status: Single Current Living Situation: Alone Current Living Situation Comment: Lives alone with family/friends checking on her current occupational status: retired Other Information That Helps Us Care for You: No Feels Safe at Home: Yes Safety Concerns: Feels Safe At This Time Childhood Exposure to Second-Hand Smoke: Yes (mother and sister in house) Dental Care, Regularly: Yes Physical Activity Frequency: Does not Exercise Seatbelt Use: always Sunscreen Use: Yes Assistive Devices: Walker Physical Exam Physical Exam: Patient is alert and oriented. She does have pain when she tries to move in bed. She is good strength testing lower extremities. Sensory is symmetric and intact. Results & Data Vital Signs (Past 12 Hours) Vital Signs Temp Pulse Resp BP Pulse Ox O2 Del Method 06/22/22 07:08 36.4 C L 59 L 16 122/68 96 Room Air 06/22/22 01:51 122/67
--- NOTE | 2022-06-22 15:00 | Magnetic Resonance Report ---
MRI OF THE LUMBAR SPINE WITHOUT IV CONTRAST CLINICAL HISTORY: Lumbar fracture. Low back pain. COMPARISON STUDY: CT scan of the lumbar spine dated 06/14/2022. MRI of the lumbar spine dated 05/14/2020. TECHNIQUE: MRI of the lumbar spine is performed utilizing various T1 and T2-weighted sequences in the axial and sagittal planes. IV contrast was not administered for this examination. The examination is modestly degraded by motion artifact. FINDINGS: Lumbar spine: There is an ywuzy-ss-tqcwsxnd superior endplate compression fracture of L3 with mild lo ss of height and significant marrow edema. There is no significant retropulsion of fragments. There a re chronic compression deformities with moderate loss of height involving L1 and L2 with evidence of previous vertebroplasty. Minimal vertebroplasty cement is seen posterior to the L1 vertebral body. Th ere are also chronic compression deformities of T11 and T12 with severe loss of height at T12 and mil dly retropulsed fragments. Findings are retropulsed at T12 by up to 4.5 mm. Vertebral body height is maintained at L4 and L5. Alignment is preserved. The transverse and spinous processes appear intact. There is no evidence of spondylolysis. Anterior and lateral marginal osteophytes are seen throughout. There is no evidence of destructive bone lesion. Intervertebral discs: The degenerative disc desiccation and loss of height is seen throughout the lum bar spine. Loss of height is severe at L5-S1 and [id number] at the remaining levels. Spinal cord: The visualized spinal cord is normal in morphology and signal intensity. The conus medul zeeshan terminates at the level of L1. The nerve roots of the cauda equina are normal in morphology. L1-L2: There are minimally retropulsed fragments at this level which abut the transiting nerve roots. There is no significant acquired compromise of the central canal. The neural foramina are patent. L2-L3: There is minimal posterior disc bulge which abuts the transiting nerve roots. No significant a cquired compromise of the central canal is identified. The neural foramina are patent. L3-L4: There is minimal posterior disc bulge and annular fissure. This abuts the transiting nerve martha ts. No significant acquired compromise of the central canal is seen. There is hypertrophy of the liga mentum flavum. Facet arthropathy contributes to minimal neuroforaminal narrowing on the left. L4-L5: There is minimal posterior disc bulge with annular fissure. This abuts the transiting nerve ro ots. The central canal is clear. Lateral disc bulges contribute to bilateral subarticular stenosis, l eft greater than right. In conjunction with facet arthropathy, there is minimal bilateral neuroforami nal narrowing. L5-S1: The central canal and neural foramina are patent. Sacrum: The visualized sacrum is normal in morphology and signal intensity. Soft tissues: There is mild paravertebral edema at L3. There is fatty atrophy of the paraspinous musc ulature. A 1.1 cm cyst is incidentally noted in the left kidney. IMPRESSION: 1. [id number]-[id number] superior endplate compression fracture of L3 with mild loss of height with assoc iated marrow edema. There are no significantly retropulsed fragments. 2. Additional chronic thoracolumbar compression deformities as above. Mildly retropulsed fragments at T12 are similar to previous. 3. Spondylotic change as above with no significant acquired compromise of the central canal. See disc ussion for detailed level by level analysis. 4. There is no evidence of destructive bone lesion. Dictated: 06/22/2022 2:25 PM Transcribed: 06/22/2022 2:53 PM Leland [id number] [email or web address] Electronically signed by: Geraldo Flanagan M.D. 06/22/2022 2:59 PM
--- NOTE | 2022-06-22 17:24 | Hospitalist Progress Note ---
Date of Service June 22, 2022 Assessment & Plan (1) Lumbar compression fracture: Plan: Presented with severe intractable pain in the lower mid back. No focal neurological deficits. Has severe pain with any movement. Failed bracing attempts at home-no relief Acute fracture at L3 as evidenced by CT lumbar spine and now MRI lumbar spine as ordered by orthopedic spine surgery No evidence of infection, no fevers or chills, no abdominal pains -Appreciate orthopedic spine surgery-await to see if needs vertebroplasty. -Continue pain regimen including heat, lidocaine patches, q6h tylenol, 5 mg PO Flexeril TID, and 1 mg IV morphine q4h prn pain 6+ -Will hold additional steroids at this time as she has not seen a benefit and she is without radicular symptoms -Continue bowel regimen with BID colace and prn miralax -Fall precautions ordered -BL SCD's and Sub-Q lovenox for DVT PPX but will hold Lovenox for tomorrow morning in case of need for vertebroplasty -No need for Protonix now that she is off prednisone (2) Osteoporosis with current pathological fracture: Plan: On Reclast at home Here with recurrent vertebral compression fractures (3) Asthma: Plan: -Continue home breathing treatments -Incentive spirometry and prn albuterol (4) Hypertension: Plan: continue lisinopril BPs controlled (5) Hyperlipidemia: Plan: -Continue statin (6) Hypothyroidism: Plan: Continue home levothyroxine Check TSH in the morning as last one was 1 year ago (7) Thrombocytopenia: Plan: Platelets mildly low here at 119 down from 177 yesterday. Platelets were low last week in the 120s In the past she has been lower end of normal but not as low as she is here. Doubt HIT but will hold Lovenox anyway Follow CBC in the morning Check B12 and folate in the morning No imaging of the abdomen and I cannot visualize the entire spleen on her MRI or CT of the lumbar spine Does not appear to have any viral illnesses however WBC count also mildly low at 4 Plan Disposition-continued stay, possible kyphoplasty Admission and Anticipated Discharge Date Admission Date: June 22, 2022 Subjective Patient reports severe pain in the lower mid back with any sort of movement. No bowel movement since yesterday. No numbness or tingling or weakness down the legs. No pain anywhere else. Denies fevers or chills, no chest pain or shortness of breath. No nausea or abdominal pain. Physical Exam Constitutional: WD/WN, vitals as above Respiratory: normal respiratory effort, lungs clear to auscultation Cardiovascular: RRR, no murmur, no edema Gastrointestinal (Abdomen): normal bowel sounds, soft, nontender, no hepatosplenomegaly Neurologic: no focal motor deficits and not confused Motor/Sensory: no sensory deficit (in lower extremities) Results & Data Results & Data Vital Signs (Past 12 Hours) Vital Signs Temp Pulse Resp BP Pulse Ox O2 Del Method O2 Del Method 06/22/22 14:56 36.4 C L 70 16 112/64 94 Room Air 06/22/22 11:56 Room Air 06/22/22 07:08 36.4 C L 59 L 16 122/68 96 Room Air PG Care Time/CCT Total # of Minutes Spent Total Time Spent with Patient: Total time spent is greater than 50% in coordination of care (as documented) at patient's floor/unit and/or counseling patient: Coding Level of Care Code 77797 SUB INP/OBS CARE 2/35MIN Diagnoses Lumbar compression fracture S32.000A Osteoporosis with current pathological fracture M80.00XA Asthma J45.909 Hypertension I10 Hyperlipidemia E78.5 Hypothyroidism E03.9 Thrombocytopenia D69.6
[2022-06-22] MEDS: SIMVASTATIN 10 MG TAB PO SCH (20:11)
[2022-06-23] MEDS: ACETAMINOPHEN 325 MG TAB PO SCH ×5 (00:56→22:38)
[2022-06-23] MEDS: LEVOTHYROXINE SODIUM 75 MCG TABLET PO SCH (05:55)
[2022-06-23 07:44] LABS: Hematocrit (blood only) 39.1 % (37.0-47.0); Hemoglobin 13.5 g/dl (12.0-16.0); Mean Corpuscular Hemoglobin 30.7 pg (25.0-34.0); Mean Corpuscular Hgb Conc 34.5 g/dL (32.0-36.0); Mean Corpuscular Volume 88.9 fL (80.0-100.0); Mean Platelet Volume 8.6 fL (9.4-12.4); Platelet Count 114 K/uL (130-400); RDW Coefficient of Variation 13.8 % (11.5-14.5); RDW Standard Deviation 45.2 fL (36.4-46.3); White Blood Count 3.37 K/ul (4.8-10.8)
[2022-06-23 08:00] LABS: BUN Creatinine Ratio 23.7 (10-20); Calcium 8.3 mg/dl (8.6-10.3); Creatinine Clr Calc Pharmacy 45.3 ml/min; Est GFR (African American) 62.2 ml/min; Est GFR (Non-African American) 53.6 ml/min; Potassium 4.1 mmol/L (3.5-5.1)
--- NOTE | 2022-06-23 08:28 | Orthopedic Progress Note ---
Date of Service June 23, 2022 Assessment & Plan (1) Osteoporosis with current pathological fracture: Plan: MRI does confirm osteoporotic L3 compression fracture. I discussed with this patient possible treatment plan of kyphoplasty. Patient was very much like to pursue this. We will make her n.p.o. after midnight we will plan for surgery tomorrow. Admission and Anticipated Discharge Date Admission Date: June 22, 2022 Subjective Patient continues to note significant axial lumbar back pain particular with activity. She struggles to get to the bathroom. She continues to deny any leg symptoms. Physical Exam Physical Exam: On exam she is neurologically intact lower extremities. Results & Data Vital Signs (Past 12 Hours) Vital Signs Temp Pulse Resp BP Pulse Ox O2 Del Method 06/23/22 07:37 36.5 C 66 16 122/75 95 Room Air 06/22/22 22:56 93 Room Air 06/22/22 21:16 36.5 C 63 16 101/63 92 Room Air
[2022-06-23] MEDS: DOCUSATE SODIUM 100 MG CAP PO SCH ×2 (08:39→20:15)
[2022-06-23] MEDS: FLUTICASONE FUROATE 200MCG 14 PUFFS/INHALER INH SCH (08:39)
[2022-06-23] MEDS: LIDOCAINE 5% 1 PATCH TD SCH (08:40)
[2022-06-23] MEDS: CYCLOBENZAPRINE HCL 5 MG TAB PO SCH ×3 (08:40→20:15)
[2022-06-23] MEDS: lisinopril 10 MG TAB PO SCH (08:40)
[2022-06-23] MEDS: MoRPHine SULFATE 2 MG/ML CARP IV PRN ×3 (12:08→22:37)
--- NOTE | 2022-06-23 17:40 | Hospitalist Progress Note ---
Date of Service June 23, 2022 Assessment & Plan (1) Lumbar compression fracture: Plan: Presented with severe intractable pain in the lower mid back. No focal neurological deficits. Continues to have severe pain with any movement. Failed bracing attempts at home-no relief Acute fracture at L3 as evidenced by CT lumbar spine and now also on MRI lumbar spine as ordered by orthopedic spine surgery No evidence of infection, no fevers or chills, no abdominal pains -Appreciate orthopedic spine surgery-plan for vertebroplasty on 06/24 -N.p.o. after midnight, holding Lovenox for procedure -Continue pain regimen including heat, lidocaine patches, q6h tylenol, 5 mg PO Flexeril TID, and 1 mg IV morphine q4h prn pain 6+ -Holding additional steroids at this time as she has not seen a benefit and she is without radicular symptoms -Continue bowel regimen with BID colace and prn miralax-no bowel movement since admission-add on senna 8.6 Mg p.o. once daily in the morning -Fall precautions -PT/OT evaluations to be performed after vertebroplasty when okay with spine s urgeon to make sure she is safe to return home as she lives alone (2) Osteoporosis with current pathological fracture: Plan: On Reclast at home Here with recurrent vertebral compression fractures Holding home calcium plus vitamin D and magnesium but can restart on discharge (3) Asthma: Plan: -Continue albuterol as needed Continue fluticasone daily inhaled (4) Hypertension: Plan: continue lisinopril BPs controlled (5) Hyperlipidemia: Plan: -Continue statin (6) Hypothyroidism: Plan: Continue home levothyroxine TSH here mildly elevated at 5.85 Keep same levothyroxine dose for now and follow-up with PCP for recheck in 4 to 6 weeks (7) Thrombocytopenia: Plan: Platelets mildly low here at 114 down from 177 on admission. Platelets were low last week in the 120s as well In the past she has been lower end of normal but not as low as she is here. Doubt HIT but will hold Lovenox anyway B12 and folate levels are normal No imaging of the abdomen and I cannot visualize the entire spleen on her MRI or CT of the lumbar spine Does not appear to have any viral illnesses however WBC count also mildly low at 3. No fever or other URI symptoms thus far but will continue to monitor Follow CBC in the morning Plan Disposition-continued stay for kyphoplasty tomorrow, possible discharge to home tomorrow or the next day depending on PT/OT evaluations Admission and Anticipated Discharge Date Admission Date: June 22, 2022 Subjective Patient feels hopeful that she is having vertebroplasty tomorrow but still complains of significant pain in the lower back with any movement in the bed. She was able to get up with assistance to the bathroom to urinate. No bowel movement today. No pain radiating down the legs, no weakness or numbness in the lower extremities. Feels tired. Physical Exam Constitutional: WD/WN, vitals as above Respiratory: normal respiratory effort, lungs clear to auscultation Cardiovascular: RRR, no murmur, no edema Gastrointestinal (Abdomen): normal bowel sounds, soft, nontender, no hepatosplenomegaly Neurologic: no focal motor deficits and not confused Motor/Sensory: no sensory deficit (in lower extremities) Results & Data Results & Data Vital Signs (Past 12 Hours) Vital Signs Temp Pulse Resp BP Pulse Ox O2 Del Method 06/23/22 15:45 36.6 C 64 16 111/62 94 Room Air 06/23/22 07:37 36.5 C 66 16 122/75 95 Room Air Laboratory Results CBC, BMP, TSH, B12 level, folate level all reviewed PG Care Time/CCT Total # of Minutes Spent Total Time Spent with Patient: Total time spent is greater than 50% in coordination of care (as documented) at patient's floor/unit and/or counseling patient: Coding Level of Care Code 58827 SUB INP/OBS CARE 2/35MIN Diagnoses Lumbar compression fracture S32.000A Osteoporosis with current pathological fracture M80.00XA Asthma J45.909 Hypertension I10 Hyperlipidemia E78.5 Hypothyroidism E03.9 Thrombocytopenia D69.6
[2022-06-23] MEDS: SIMVASTATIN 10 MG TAB PO SCH (20:15)
[2022-06-24] MEDS: ACETAMINOPHEN 325 MG TAB PO SCH ×4 (05:51→23:59)
[2022-06-24] MEDS: LEVOTHYROXINE SODIUM 75 MCG TABLET PO SCH (05:51)
[2022-06-24 08:20] LABS: Basophils # (auto) 0.04 K/uL (0-0.2); Basophils % (auto) 1.2 %; Eosinophils # (auto) 0.13 K/uL (0-0.50); Hemoglobin 14.1 g/dl (12.0-16.0); Immature Granulocytes # (auto) 0.01 K/uL (0.01-0.20); Immature Granulocytes % (auto) 0.3 %; Lymphocytes # (auto) 1.29 K/uL (1.2-3.4); Lymphocytes % (auto) 39.9 %; Mean Corpuscular Hemoglobin 30.7 pg (25.0-34.0); Mean Corpuscular Hgb Conc 35.3 g/dL (32.0-36.0); Mean Corpuscular Volume 87.1 fL (80.0-100.0); Monocytes # (auto) 0.24 K/uL (0.11-0.59); Monocytes % (auto) 7.4 %; Neutrophils # (auto) 1.52 K/uL (1.40-6.50); Neutrophils % (auto) 47.2 %; Platelet Count 120 K/uL (130-400); RDW Coefficient of Variation 13.8 % (11.5-14.5); RDW Standard Deviation 44.2 fL (36.4-46.3); Red Blood Count 4.59 M/uL (4.20-5.40); White Blood Count 3.23 K/ul (4.8-10.8)
[2022-06-24] MEDS: MoRPHine SULFATE 2 MG/ML CARP IV PRN (08:24)
[2022-06-24] MEDS: FLUTICASONE FUROATE 200MCG 14 PUFFS/INHALER INH SCH (08:30)
[2022-06-24] MEDS: lisinopril 10 MG TAB PO SCH (08:31)
[2022-06-24] MEDS: LIDOCAINE 5% 1 PATCH TD SCH (08:31)
[2022-06-24 08:39] LABS: BUN Creatinine Ratio 24.7 (10-20); Calcium 8.4 mg/dl (8.6-10.3); Creatinine Clr Calc Pharmacy 60.2 ml/min; Est GFR (African American) 87.7 ml/min; Est GFR (Non-African American) 75.6 ml/min; Potassium 4.2 mmol/L (3.5-5.1)
[2022-06-24] MEDS: CYCLOBENZAPRINE HCL 5 MG TAB PO SCH ×3 (09:46→20:14)
[2022-06-24] MEDS: DOCUSATE SODIUM 100 MG CAP PO SCH ×2 (09:46→20:14)
[2022-06-24] MEDS: SENNA 8.6 MG TAB PO SCH (09:46)
--- NOTE | 2022-06-24 13:44 | Hospitalist Progress Note ---
Date of Service June 24, 2022 Assessment & Plan (1) Lumbar compression fracture: Plan: Presented with severe intractable pain in the lower mid back. No focal neurological deficits. Continues to have severe pain with any movement. Failed bracing attempts at home-no relief Acute fracture at L3 as evidenced by CT lumbar spine and now also on MRI lumbar spine as ordered by orthopedic spine surgery No evidence of infection, no fevers or chills, no abdominal pains -Appreciate orthopedic spine surgery-plan for vertebroplasty on 06/24 -Continue pain regimen including heat, lidocaine patches, q6h tylenol, 5 mg PO Flexeril TID, and 1 mg IV morphine q4h prn pain 6+ -Holding additional steroids at this time as she has not seen a benefit and she is without radicular symptoms -Continue bowel regimen with BID colace and prn miralax-no bowel movement since admission-added on senna 8.6 Mg p.o. once daily in the morning -Fall precautions -PT/OT evaluations to be performed after vertebroplasty when okay with spine surgeon to make sure she is safe to return home as she lives alone (2) Osteoporosis with current pathological fracture: Plan: On Reclast at home Here with recurrent vertebral compression fractures Holding home calcium plus vitamin D and magnesium but can restart on discharge (3) Asthma: Plan: -Continue albuterol as needed Continue fluticasone daily inhaled (4) Hypertension: Plan: continue lisinopril BPs controlled (5) Hyperlipidemia: Plan: -Continue statin (6) Hypothyroidism: Plan: Continue home levothyroxine TSH here mildly elevated at 5.85 Keep same levothyroxine dose for now and follow-up with PCP for recheck in 4 to 6 weeks (7) Thrombocytopenia: Plan: Platelets mildly low here at 114 down from 177 on admission. Platelets were low last week in the 120s as well Improved slightly today to 120 In the past she has been lower end of normal but not as low as she is here. Doubt HIT but will hold Lovenox anyway B12 and folate levels are normal No imaging of the abdomen and I cannot visualize the entire spleen on her MRI or CT of the lumbar spine Does not appear to have any viral illnesses however WBC count also mildly low at 3. No fever or other URI symptoms thus far but will continue to monitor Follow CBC in the morning Plan Disposition-continued stay for kyphoplasty and recovery, possible discharge to home tomorrow depending on PT/OT evaluations Admission and Anticipated Discharge Date Admission Date: June 22, 2022 Subjective Pt still with pain with any movement, otherwise no new symptoms. Awaiting kyphoplasty Physical Exam Constitutional: WD/WN, vitals as above Respiratory: normal respiratory effort, lungs clear to auscultation Cardiovascular: RRR, no murmur, no edema Gastrointestinal (Abdomen): normal bowel sounds, soft, nontender, no hepatosplenomegaly Neurologic: no focal motor deficits and not confused Motor/Sensory: no sensory deficit (in lower extremities) Results & Data Results & Data Vital Signs (Past 12 Hours) Vital Signs Temp Pulse Resp BP Pulse Ox O2 Del Method 06/24/22 08:10 36.9 C 76 16 132/75 94 Room Air PG Care Time/CCT Total # of Minutes Spent Total Time Spent with Patient: Total time spent is greater than 50% in coordination of care (as documented) at patient's floor/unit and/or counseling patient: Coding Level of Care Code 36814 SUB INP/OBS CARE 04/08MIN Diagnoses Lumbar compression fracture S32.000A Osteoporosis with current pathological fracture M80.00XA Asthma J45.909 Hypertension I10 Hyperlipidemia E78.5 Hypothyroidism E03.9 Thrombocytopenia D69.6
[2022-06-24] MEDS ORDERED: ePHEDrine sulfate 50 MG/ML AMP IV PRN (14:39)
[2022-06-24] MEDS ORDERED: ATROPINE SULFATE 0.1 MG/ML 10ML SYR IV PRN (14:39)
[2022-06-24] MEDS ORDERED: ONDANSETRON INJ 2 MG/ML 2 ML VIAL IV PRN (14:39)
--- NOTE | 2022-06-24 14:39 | Anesthesiology Consultation ---
Date of Service June 24, 2022 Assessment & Plan Chart Review Chart Review: Acceptable Risk for Surgery Consults Requested none ASA ASA2 Proposed Anesthesia Anesthesia Type: General Risk / Benefits Reviewed With: PT / POA / Parent / Guardian, Accepts Plan and Informed Consent Obtained History Surgery Operation Date: 06/24/22 14:35 Proposed Procedures p Kyphoplasty L3 - Heath M Alison, Height/Weight Height: 5 ft 4 in Weight: 84 kg Allergies Allergy/AdvReac Type Severity Reaction Status Date / Time adhesive Allergy Intermediate Redness of Verified 06/19/22 13:34 Skin Medications Home Medications Medication Instructions Recorded Confirmed Last Taken acetaminophen 325 mg tablet 325 mg PO Q4H PRN Mild Pain (Scale 05/07/20 06/21/22 05/13/20 (Tylenol) Score 1-4) calcium phosphate 600 mg-vit D3 1 tab PO BID 10/02/20 06/21/22 Unknown 500 unit-magnesium oxide 50 mg tablet cholecalciferol (vitamin D3) 25 3,000 unit PO QAM 01/09/21 06/21/22 Unknown mcg (1,000 unit) capsule simvastatin 10 mg tablet 10 mg PO HS #90 tabs 07/15/21 06/21/22 Unknown cyanocobalamin (vitamin B-12) 1,000 mcg PO DAILY 11/14/21 06/21/22 Unknown 1,000 mcg capsule Incentive Spirometer #1 ea 01/06/22 06/19/22 Unknown fluticasone propionate 250 1 inh inhalation BID #180 ea 02/17/22 06/21/22 Unknown mcg/actuation blister powder for inhalation (Flovent Diskus) levothyroxine 75 mcg tablet 75 mcg PO DAILY #90 tabs 02/17/22 06/21/22 Unknown lisinopril 10 mg tablet 10 mg PO DAILY #90 tabs 04/07/22 06/21/22 Unknown ondansetron 4 mg disintegrating 4 - 8 mg PO Q8H PRN nausea and 06/14/22 06/21/22 Unknown tablet vomiting #14 tabs cyclobenzaprine 5 mg tablet 10 mg PO HS PRN muscle spasm #10 06/19/22 06/21/22 Unknown tabs prednisone 10 mg tablet 10 mg PO .COMPLEX back pain #30 06/19/22 06/21/22 Unknown tabs Active Medications Generic Name Dose Route Start Last Admin Trade Name Freq PRN Reason Stop Dose Admin Acetaminophen 650 mg 06/21/22 18:00 06/24/22 14:18 Acetaminophen 325 Mg Tab PO 07/21/22 17:59 Not Given Q6 L[facility]TON Cyclobenzaprine HCl 5 mg 06/21/22 21:00 06/24/22 14:18 Cyclobenzaprine Hcl 5 Mg Tab PO 07/21/22 20:59 Not Given TID LAYTON Docusate Sodium 100 mg 06/21/22 21:00 06/24/22 09:46 Docusate Sodium 100 Mg Cap PO 07/21/22 20:59 Not Given BID L[facility]TON Enoxaparin Sodium 40 mg 06/21/22 11:56 06/22/22 08:22 Enoxaparin Inj 40 Mg/0.4 Ml Syr SQ 07/21/22 11:55 40 mg DAILY LAYTON Administration Fluticasone Furoate 1 puffs 06/22/22 09:00 06/24/22 08:30 Fluticasone Furoate 200mcg 14 Puffs/Inhaler INH 07/22/22 08:59 1 puffs DAILY LAYTON Administration Levothyroxine Sodium 75 mcg 06/22/22 06:30 06/24/22 05:51 Levothyroxine Sodium 75 Mcg Tablet PO 07/22/22 06:29 75 mcg DAILYBB LAYTON Administration Lidocaine 1 patch 06/21/22 11:00 06/24/22 08:31 Lidocaine 5% 1 Patch TD 07/21/22 10:59 Not Given QAM LAYTON Lisinopril 10 mg 06/22/22 09:00 06/24/22 08:31 Lisinopril 10 Mg Tab PO 07/22/22 08:59 10 mg DAILY L[facility]TON Administration Miscellaneous 1 each 06/21/22 21:00 06/23/22 20:16 Remove Lidoderm Patch N/A 07/21/22 20:59 Not Given DAILY@2100 LAYTON Morphine Sulfate 1 mg 06/21/22 11:56 06/24/22 08:24 Morphine Sulfate 2 Mg/Ml Carp IV 07/05/22 11:55 1 mg Q4H PRN Administration Pain (6+) Sennosides 8.6 mg 06/24/22 09:00 06/24/22 09:46 Senna 8.6 Mg Tab PO 07/24/22 08:59 8.6 mg QAM LAYTON Administration Simvastatin 10 mg 06/21/22 21:00 06/23/22 20:15 Simvastatin 10 Mg Tab PO 07/21/22 20:59 10 mg HS LAYTON Administration NPO Date Last Intake of Fluids: 06/23/22 Time Last Intake of Fluids: 22:00 Date Last Intake of Solids: 06/23/22 Time Last Intake of Solids: 22:00 Past Medical History Medical History GERD (gastroesophageal reflux disease) Hx of colonic polyps Hypertension ON ABOVE LIST BUT 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" Hypothyroidism Ingrown left big toenail Intractable back pain Left leg cellulitis RESOLVED Osteoarthritis Osteopenia Right shoulder pain Past Family History Family History Grandfather (Paternal) Colorectal cancer Lung cancer Grandfather (Maternal) Myocardial infarction Mother Stroke Grandmother Rectal cancer Uterine cancer Denies family history of Ovarian cancer Prostate cancer Breast cancer Past Surgical History Surgical History History of colonoscopy History of tooth extraction Hx of bilateral cataract extraction S/P carpal tunnel release RIGHT S/P cholecystectomy S/P tonsillectomy Past Anesthesia History No Hx of Anesthesia Complications History of PONV No Hx of PONV Social History Smoking Status: Former smoker Smoking cigarettes per day: 20-40 Do You Dip or Chew Tobacco: No Hx Alcohol Use: No Hx Substance Use: No substance use type: prescription drug Substance Use Type Other:: pain medication for pain Review of Systems ROS Unobtainable: All systems reviewed & are unremarkable except as noted in HPI & below Musculoskeletal: + back pain Physical Exam Vital Signs Last Vital Signs Temp 36.9 C 06/24/22 13:46 Pulse 70 06/24/22 13:46 Resp 20 06/24/22 13:46 BP 150/67 H 06/24/22 13:46 Pulse Ox 96 06/24/22 13:46 O2 Del Method Room Air 06/24/22 13:46 Constitutional no acute distress ENMT Mouth: + dentures; no TMJ abnormality and motion of mouth not restricted Thyromental Distance: > or= 3.5 Finger Breadths Mallampati Class: II Neck normal visual inspection Respiratory normal respiratory effort Cardiovascular Rate/Rhythm: regular rate and regular rhythm Heart Sounds: no murmur Neurologic moves all extremities Psychiatric Orientation: alert and oriented x 3 Testing Laboratory Results 06/24/22 06:57 06/24/22 06:58 Electrocardiogram Findings: + NSR @, + poor R wave progression and + MO (septal/inf MO pattern from /) 11.04.2021 Echocardiogram EF55-60% normal valves
--- NOTE | 2022-06-24 14:46 | History & Physical Bridge Note ---
Date of Service June 24, 2022 History & Physical Bridge Note I have examined the patient, reviewed the History & Physical and in the interval since the performance of the History & Physical I have noted the following changes of clinical significance: no changes noted Kyphoplasty L3
[2022-06-24] MEDS ORDERED: ceFAZolin 2,000 MG/15 ML IV PUSH IV ONE (14:54)
[2022-06-24] MEDS ORDERED: fentaNYL citrate PF 100 MCG/2 ML VIAL ONE (15:02)
[2022-06-24] MEDS ORDERED: BUPIVACAINE/EPINEPHRINE 0.25% 1:200,000 30 ML VIAL ONE (15:03)
[2022-06-24] MEDS ORDERED: IOPAMIDOL INJ 61% 15 ML VIAL INSTIL ONE (15:42)
[2022-06-24] MEDS ORDERED: DEXAMETHASONE SOD INJ 4 MG/ML VIAL ONE (16:06)
[2022-06-24] MEDS ORDERED: ONDANSETRON INJ 2 MG/ML 2 ML VIAL ONE (16:06)
[2022-06-24] MEDS ORDERED: PROPOFOL IV EMULSION 10 MG/ML 20 ML VIAL IV ONE (16:06)
[2022-06-24] MEDS ORDERED: ROCURONIUM BROMIDE 10 MG/ML 5 ML VIAL IV ONE (16:06)
[2022-06-24] MEDS ORDERED: LIDOCAINE 2% MPF LOCAL 5 ML VIAL ONE (16:06)
[2022-06-24] MEDS ORDERED: GLYCOPYRROLATE 0.2 MG/ML VIAL ONE (16:09)
--- NOTE | 2022-06-24 16:13 | Operative Report ---
Post Operative Report Pre & Post Diagnosis Operation Date: 06/24/22 14:35 Pre-Op Diagnosis: L3 compression fracture Post-Op Diagnosis: L3 compression fracture I identified the patient and participated in the time-out.: Yes Procedure Operation Date: 06/24/22 14:35 Actual Procedures #1 kyphoplasty L3 vertebral body. #2 biopsy of L3 vertebral body Surgeon Heath Rosas, DO Surgical Tech None Estimated Blood Loss 10 Findings Consistent with Post-Op Diagnosis Specimens Biopsy of the L3 vertebral body Indications This is an 82-year-old female presents with the above-mentioned diagnosis having marked pain and inability to undergo her activities of daily living she is here for the above-mentioned procedure. Description of Procedure Patient was met with identified informed consent obtained. Patient was then taken to the operative suite underwent a patient placed in a prone position the Andrew table with a chest padded bolsters. All bony prominences well-padded eyes inspected to ensure no external pressure placed upon them. This point the thoracolumbar spine was prepped and draped in a sterile fashion. With the assistance of fluoroscopy in the AP and lateral planes identified the L3 vertebral body. 2 small incisions were placed just lateral to the pedicles. 2 Kyphon working cannulas were then placed by way of a transpedicular approach into the vertebral body. 2 core biopsies were obtained. I then inserted to 20 mm Kyphon balloons within the vertebral body and sequentially inflated them with fluoroscopic visualization. I then remove the balloons and then injected approximately 6 cc of Kyphon cement demonstrating excellent interdigitation and fill. After this was complete the working cannulas were removed the small incisions closed with subcutaneous Monocryl and sterile dressings placed. Patient was then awakened and taken to PACU in stable condition. I attest to the content of the Intraoperative Record and any orders documented therein. Any exceptions are noted below.
[2022-06-24] MEDS: HYDROmorphone INJ 1 MG/ML SYRINGE IV PRN ×4 (16:24→16:39)
--- NOTE | 2022-06-24 16:37 | Anesthesiology Progress Note ---
Date of Service June 24, 2022 Anesthesia Post Procedure Vital Signs Vital Signs: Temp Pulse Pulse Resp BP BP Pulse Ox 06/24/22 16:25 78 22 102/64 100 06/24/22 16:35 71 14 147/77 H 100 06/24/22 16:19 36.9 C 88 19 168/88 H 97 06/24/22 13:46 36.9 C 70 20 150/67 H 96 06/24/22 08:10 36.9 C 76 16 132/75 94 06/23/22 23:12 36.9 C 73 16 112/70 94 O2 Del Method O2 Flow Rate 06/24/22 16:25 Nasal Cannula 4 06/24/22 16:35 Nasal Cannula 4 06/24/22 16:19 Nasal Cannula 4 06/24/22 13:46 Room Air 06/24/22 08:10 Room Air 06/23/22 23:12 Room Air Pain Intensity Lower Medial Back: Pain Intensity: 9 Back: Pain Intensity: 6 Transfer of Care Handoff Completed per policy Notes Mental Status: alert / awake / arousable Patient Amnestic to Procedure: Yes Nausea / Vomiting: adequately controlled Pain: adequately controlled Airway Patency, RR, SpO2: stable & adequate BP & HR: stable & adequate Hydration State: stable & adequate Anesthetic Complications: no major complications apparent
--- NOTE | 2022-06-24 18:27 | Fluoroscopy Report ---
INTRAOPERATIVE RADIOGRAPHS CLINICAL HISTORY: L3 kyphoplasty. Fluoro time: 87 seconds. Ka,r: 70.92 mGy FINDINGS: 2 spot fluoroscopic images of the lumbar spine are correlated with MRI of lumbar spine date d 06/22/2022. There is kyphoplasty cement seen within the body of L3. Cement in the bodies of L1 and L 2 is unchanged from previous. IMPRESSION: Intraoperative images from L3 kyphoplasty as above. Electronically signed by: Geraldo Flanagan M.D. 06/24/2022 6:26 PM
[2022-06-24] MEDS: SIMVASTATIN 10 MG TAB PO SCH (20:14)
[2022-06-25] MEDS: ACETAMINOPHEN 325 MG TAB PO SCH ×4 (05:51→23:04)
[2022-06-25] MEDS: LEVOTHYROXINE SODIUM 75 MCG TABLET PO SCH (05:51)
[2022-06-25] MEDS: CYCLOBENZAPRINE HCL 5 MG TAB PO SCH (08:55)
[2022-06-25] MEDS: FLUTICASONE FUROATE 200MCG 14 PUFFS/INHALER INH SCH (08:56)
[2022-06-25] MEDS: DOCUSATE SODIUM 100 MG CAP PO SCH ×2 (08:56→20:46)
[2022-06-25] MEDS: LIDOCAINE 5% 1 PATCH TD SCH (08:57)
[2022-06-25] MEDS: SENNA 8.6 MG TAB PO SCH (09:00)
[2022-06-25] MEDS: lisinopril 10 MG TAB PO SCH (09:01)
[2022-06-25 09:30] LABS: Hematocrit (blood only) 41.2 % (37.0-47.0); Hemoglobin 14.2 g/dl (12.0-16.0); Immature Granulocytes # (auto) 0.01 K/uL (0.01-0.20); Immature Granulocytes % (auto) 0.3 %; Lymphocytes # (auto) 0.58 K/uL (1.2-3.4); Lymphocytes % (auto) 15.5 %; Mean Corpuscular Hemoglobin 30.5 pg (25.0-34.0); Mean Corpuscular Hgb Conc 34.5 g/dL (32.0-36.0); Mean Corpuscular Volume 88.4 fL (80.0-100.0); Mean Platelet Volume 9.5 fL (9.4-12.4); Monocytes # (auto) 0.19 K/uL (0.11-0.59); Monocytes % (auto) 5.1 %; Neutrophils # (auto) 2.95 K/uL (1.40-6.50); Neutrophils % (auto) 79.1 %; Platelet Count 109 K/uL (130-400); RDW Coefficient of Variation 13.9 % (11.5-14.5); Red Blood Count 4.66 M/uL (4.20-5.40); White Blood Count 3.73 K/ul (4.8-10.8)
[2022-06-25 09:33] LABS: BUN Creatinine Ratio 24.4 (10-20); Calcium 8.3 mg/dl (8.6-10.3); Creatinine Clr Calc Pharmacy 56.3 ml/min; Est GFR (African American) 80.9 ml/min; Est GFR (Non-African American) 69.8 ml/min; Potassium 4.6 mmol/L (3.5-5.1)
--- NOTE | 2022-06-25 09:53 | Orthopedic Progress Note ---
Date of Service June 25, 2022 Assessment & Plan (1) Osteoporosis with current pathological fracture: Plan: This time we will have her ambulate as tolerated. She would be safe for home discharge tomorrow per orthopedics. Admission and Anticipated Discharge Date Admission Date: June 22, 2022 Subjective Back pain markedly improved Physical Exam Physical Exam: Patient is in the chair at the bedside. Is good strength testing. Results & Data Vital Signs (Past 12 Hours) Vital Signs Temp Pulse Resp BP Pulse Ox O2 Del Method O2 Flow Rate 06/25/22 07:39 36.5 C 59 L 18 129/56 L 95 Nasal Cannula 1 06/25/22 03:23 36.3 C L 55 L 18 121/69 94 Nasal Cannula 2 06/25/22 00:04 36.5 C 63 16 121/75 94 Nasal Cannula 1 06/24/22 23:20 36.4 C L 62 18 104/65 92 Room Air 06/24/22 22:20 36.4 C L 71 18 110/63 95 Room Air
[2022-06-25] MEDS: MoRPHine SULFATE 2 MG/ML CARP IV PRN ×2 (11:46→18:25)
[2022-06-25] MEDS ORDERED: CYCLOBENZAPRINE HCL 5 MG TAB PO PRN (13:31)
[2022-06-25] MEDS ORDERED: POLYETHYLENE (MIRALAX) 17 GM PACK PO ONE (13:31)
--- NOTE | 2022-06-25 13:33 | Hospitalist Progress Note ---
Date of Service June 25, 2022 Assessment & Plan (1) Lumbar compression fracture: Plan: Presented with severe intractable pain in the lower mid back. No focal neurological deficits. Continued to have severe pain with any movement. Failed bracing attempts at home-no relief Acute fracture at L3 as evidenced by CT lumbar spine and also on MRI lumbar spine as ordered by orthopedic spine surgery No evidence of infection, no fevers or chills, no abdominal pains -Appreciate orthopedic spine surgery-now s/p vertebroplasty on 06/24 -pain was MUCH improved, but now had acute onset of lower back pain after getting up to the bathroom on 06/25--> check repeat lumbar spine xrays to look for new comp fracture -Continue pain regimen including heat, lidocaine patches, q6h tylenol, 5 mg PO Flexeril TID but make prn, and 1 mg IV morphine q4h prn pain 6+ -No BM since 06/20- continue bowel regimen with BID colace and senna but increase to 17.2mg daily, make Miralax scheduled -PT/OT evaluations did recommend home return but now with acute pain again--> dispo in limbo (2) Osteoporosis with current pathological fracture: Plan: On Reclast at home Here with recurrent vertebral compression fractures Holding home calcium plus vitamin D and magnesium but can restart on discharge (3) Asthma: Plan: -Continue albuterol as needed Continue fluticasone daily inhaled (4) Hypertension: Plan: continue lisinopril BPs controlled (5) Hyperlipidemia: Plan: -Continue statin (6) Hypothyroidism: Plan: Continue home levothyroxine TSH here mildly elevated at 5.85 Keep same levothyroxine dose for now and follow-up with PCP for recheck in 4 to 6 weeks (7) Thrombocytopenia: Plan: Platelets mildly low here in low 100s from 177 on admission. Platelets were low last week in the 120s as well In the past she has been lower end of normal but not as low as she is here. Doubt HIT but will stopped Lovenox anyway B12 and folate levels are normal No imaging of the abdomen and I cannot visualize the entire spleen on her MRI or CT of the lumbar spine Does not appear to have any viral illnesses however WBC count also mildly low at 3. 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 Then, later, worked with OT and went to the bathroom and began having severe lower back pain again, required morphine. No pain down legs, no numbness. Discussed care with Dr. Rosas Physical Exam Constitutional: WD/WN, vitals as above Respiratory: normal respiratory effort, lungs clear to auscultation Cardiovascular: RRR, no murmur, no edema Gastrointestinal (Abdomen): normal bowel sounds, soft, nontender, no hepatosplenomegaly Neurologic: no focal motor deficits and not confused Motor/Sensory: no sensory deficit (in lower extremities) Results & Data Results & Data Vital Signs (Past 12 Hours) Vital Signs Temp Pulse Resp BP BP Pulse Ox O2 Del Method 06/25/22 11:28 36.4 C L 63 18 132/77 97 Room Air 06/25/22 07:39 36.5 C 59 L 18 129/56 L 95 Nasal Cannula 06/25/22 03:23 36.3 C L 55 L 18 121/69 94 Nasal Cannula O2 Flow Rate 06/25/22 11:28 06/25/22 07:39 1 06/25/22 03:23 2 Laboratory Results CBC, BMP reviewed PG Care Time/CCT Total # of Minutes Spent Total Time Spent with Patient: Total time spent is greater than 50% in coordination of care (as documented) at patient's floor/unit and/or counseling patient: Coding Level of Care Code 21208 SUB INP/OBS CARE 2/35MIN Diagnoses Lumbar compression fracture S32.000A Osteoporosis with current pathological fracture M80.00XA Asthma J45.909 Hypertension I10 Hyperlipidemia E78.5 Hypothyroidism E03.9 Thrombocytopenia D69.6 MGUS (monoclonal gammopathy of unknown significance) D47.2
--- NOTE | 2022-06-25 15:25 | XRay Report ---
XR lumbar spine 2-3V CLINICAL HISTORY: back pain r/o new fracture COMPARISON STUDY: Lumbar spine MRI 06/22/2022. Lumbar spine radiograph 06/21/2022. FINDINGS: Status post L3 vertebroplasty. Prior L1 and L2 vertebroplasty is again noted. Chronic sever e compression deformity at T12 and mild anterior wedge-shaped compression deformity at T11 remain unc hanged. Old compression deformities from L1 through L3 are also unchanged. No acute fractures identif ied within the lumbar spine. Vascular calcifications are noted. The visualized sacrum appears intact. IMPRESSION: 1. Status post L3 vertebroplasty. No change in the superior endplate compression deformity at L3. 2. No change in the additional compression deformities from T11 through L2. 3. No definite acute fractures within the lumbar spine. ACT 112: Negative or not required by law. Electronically signed by: Frankie Wyatt M.D. 06/25/2022 3:24 PM
[2022-06-25] MEDS: SIMVASTATIN 10 MG TAB PO SCH (20:46)
[2022-06-26] MEDS: LEVOTHYROXINE SODIUM 75 MCG TABLET PO SCH (05:46)
[2022-06-26] MEDS: ACETAMINOPHEN 325 MG TAB PO SCH ×2 (05:46→13:47)
[2022-06-26] MEDS: DOCUSATE SODIUM 100 MG CAP PO SCH (08:48)
[2022-06-26] MEDS: FLUTICASONE FUROATE 200MCG 14 PUFFS/INHALER INH SCH (08:48)
[2022-06-26] MEDS: LIDOCAINE 5% 1 PATCH TD SCH (08:49)
[2022-06-26] MEDS ORDERED: SENNA 8.6 MG TAB PO SCH (09:00)
[2022-06-26] MEDS ORDERED: POLYETHYLENE (MIRALAX) 17 GM PACK PO SCH (09:00)
[2022-06-26] MEDS: lisinopril 10 MG TAB PO SCH (09:02)
[2022-06-26] MEDS: MoRPHine SULFATE 2 MG/ML CARP IV PRN (10:15)
[2022-06-26 11:40] LABS: Basophils # (auto) 0.03 K/uL (0-0.2); Basophils % (auto) 0.6 %; Eosinophils # (auto) 0.09 K/uL (0-0.50); Eosinophils % (auto) 1.8 %; Hemoglobin 14.8 g/dl (12.0-16.0); Immature Granulocytes # (auto) 0.03 K/uL (0.01-0.20); Immature Granulocytes % (auto) 0.6 %; Lymphocytes # (auto) 1.57 K/uL (1.2-3.4); Lymphocytes % (auto) 31.7 %; Mean Corpuscular Hemoglobin 30.3 pg (25.0-34.0); Mean Corpuscular Hgb Conc 33.6 g/dL (32.0-36.0); Mean Corpuscular Volume 90.2 fL (80.0-100.0); Mean Platelet Volume 8.9 fL (9.4-12.4); Monocytes # (auto) 0.35 K/uL (0.11-0.59); Monocytes % (auto) 7.1 %; Neutrophils # (auto) 2.89 K/uL (1.40-6.50); Neutrophils % (auto) 58.2 %; Platelet Count 132 K/uL (130-400); RDW Coefficient of Variation 14.2 % (11.5-14.5); RDW Standard Deviation 46.1 fL (36.4-46.3); Red Blood Count 4.88 M/uL (4.20-5.40); White Blood Count 4.96 K/ul (4.8-10.8)
[2022-06-26 11:49] LABS: BUN Creatinine Ratio 20.5 (10-20); Calcium 8.6 mg/dl (8.6-10.3); Creatinine Clr Calc Pharmacy 52.9 ml/min; Est GFR (African American) 75.1 ml/min; Est GFR (Non-African American) 64.8 ml/min; Potassium 3.4 mmol/L (3.5-5.1)
[2022-06-26] MEDS ORDERED: POTASSIUM CHLORIDE 10 MEQ TABCR PO STA (13:35)
--- NOTE | 2022-06-26 14:30 | Discharge Summary ---
Date of Service June 26, 2022 Admission HPI Per Admitting Provider Alejandra is an 82 year old female with a PMH significant for osteopenia, previous thoracic and lumbar compression fractures S/P L1 and L2 Kyphoplasty with Dr. Rosas in 2020, hypothyroidism, GERD, and hyperlipidemia who presented to the [facility] ED on 06/21/22 with intractable back pain. The patient first presented to the [facility] ED on 06/14/22 for the same symptoms, CT of the lumbar spine at that time was negative for new findings and showed her chronic thoracic and lumbar spine pathology. She was treated with IV narcotics and discharged home with a short course of oxycodone. She was seen for ER FU with her PCP on 06/19/22 and was started on a 12 days taper of prednisone and prn Flexeril. Today she was found to be hypertensive at 199/65 otherwise stable vitals. CBC and CMP were WNL and she was found to be covid 19 negative. Prior to admission she was given 8 total MG of IV morphine and 4 mg IV Zofran. At the time of the exam the patient was sitting in bed in no acute distress with her Goddaughter sitting bedside, history was obtained from both. She states that her acute on chronic back pain initial started prior to her ED visit on 06/14. She was experiencing constipation and sitting on the toilet, straining for 45+ minutes. After doing this she noticed acute lumbar back pain which runs across her low back, just superior to her sacrum. She denies any radiation of the pain. Since then, despite visits to the ED and her PCP her pain has persisted. She uses a walker to ambulate, at this time her mobility is severely reduced. She lives at home, alone and does not currently have home health. She feels as though she gets some relief with the flexeril she has been using but does not think the prednisone or oxycodone have provided relief. The morphine she received in the ED has given her some relief today. She denies recent fevers, chills, unilateral extremity weakness, lost of bowel or bladder function, saddle anesthesia, chest pain, SOB, abd pain, nausea, vomiting, dysuria, hematuria, and recent falls. After being prescribed a bowel regimen, including a fleet enema, she is now having non-blood bowel movements. We discussed code status, she wishes to be a DNR/DNI and for her Goddaughter to make medical decisions for her if she cannot make them herself. Please refer to Dr. Ragsdale's attestation for any changes to the treatment plan. Principal Diagnosis L3 vertebral compression fracture S/p kyphoplasty Discharge Exam Constitutional WD/WN, vitals as above Eyes + anicteric sclerae Respiratory normal respiratory effort, lungs clear to auscultation Cardiovascular RRR, no murmur, no edema Gastrointestinal (Abdomen) normal bowel sounds, soft, nontender, no hepatosplenomegaly Neurologic no focal motor deficits and not confused Motor/Sensory: no sensory deficit (in lower extremities) Discharge Data Allergies Allergy/AdvReac Type Severity Reaction Status Date / Time adhesive Allergy Intermediate Redness of Verified 06/19/22 13:34 Skin Consultations 06/21/22 11:03 ED Decision to Admit Stat 06/21/22 22:18 Consult Orthopedic Surgery Routine Procedures Performed Operation Date: 06/24/22 14:35 Actual Procedures p Kyphoplasty L3 - Heath Rosas, Ordered Studies 06/22/22 10:19 MR lumbar spine wo con Urgent 06/24/22 [place] kyphoplasty any level Routine Lumbar spine x-rays Hospital Course (1) Lumbar compression fracture: Presented with severe intractable pain in the lower mid back. No focal neurological deficits. Continued to have severe pain with any movement. Failed bracing attempts at home-no relief Acute fracture at L3 as evidenced by CT lumbar spine and also on MRI lumbar spine as ordered by orthopedic spine surgery No evidence of infection, no fevers or chills, no abdominal pains -Appreciate orthopedic spine surgery-now s/p vertebroplasty on 06/24 -pain was MUCH improved, but had acute onset of lower back pain after getting up to the bathroom on 06/25--> checked repeat lumbar spine xrays to look for new comp fracture negative for such -Pain was much improved on 06/26 she was able to ambulate in the halls with physical therapy and was recommended for return to home -Follow-up with Dr. Rosas of orthopedic spine surgery within 2 weeks -Continue pain regimen upon discharge to include Tylenol as needed, oxycodone as needed for moderate to severe pain, 5 mg PO Flexeril TID prn -No BM since 06/20- continue bowel regimen with BID colace and senna 17.2mg daily, Miralax tid (2) Osteoporosis with current pathological fracture: On Reclast at home Here with recurrent vertebral compression fractures Holding home calcium plus vitamin D and magnesium but can restart on discharge (3) Asthma: -Continue albuterol as needed Continue fluticasone daily inhaled (4) Hypertension: continue lisinopril BPs controlled (5) Hyperlipidemia: -Continue statin (6) Hypothyroidism: Continue home levothyroxine TSH here mildly elevated at 5.85 Keep same levothyroxine dose for now and follow-up with PCP for recheck in 4 to 6 weeks (7) Thrombocytopenia: Platelets mildly low here in low 100s from 177 on admission. Platelets were low last week in the 120s as well In the past she has been lower end of normal but not as low as she is here. Platelets now back to normal on the day of discharge and 132 Doubt HIT but will stopped Lovenox anyway B12 and folate levels are normal No imaging of the abdomen and I cannot visualize the entire spleen on her MRI or CT of the lumbar spine Does not appear to have any viral illnesses however WBC count also mildly low at 3. 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 and follows with Hematology/Oncology at [facility] Our nurse navigator reached out to her hematology office and they will reschedule her appointment that was canceled for early next week for follow-up (8) MGUS (monoclonal gammopathy of unknown significance): as above Plan Disposition-medically stable for discharge to home, home health arranged Discussed care with shaan at the bedside who is her lending manager Total Time Total Time Spent Total Time Spent (In Minutes): 35 minutes Discharge Plan Discharge Items Patient Disposition: Home - Home Health Services Reason For Visit: INTRACTABLE LOW BACK PAIN Discharge Diagnosis: L3 vertebral compression fracture, s/p kyphoplasty Condition on Discharge: Good Activity: As commented below Lifting: None Bathing: No limitations Exercise/Sports: As tolerated Weightbearing: Full weightbearing Non-emergency contact: Primary Care Provider and Surgeon Call non-emergency contact if: you have any medication questions, your symptoms worsen, your pain is not controlled, your pain is worsening and your pain is unusual for you Follow-up/Referrals: Jasmyne Ascencio PA-C [Physician Sales Team Member] - 07/03/22 11:00 am (Please follow up within 1 week.) Heath Rosas DO [Surgeon] - (Please follow up within 2 weeks.) PCP,NO [Primary Care Provider] - Diet: Heart Healthy Addtl Attending Provider Instructions: You can take flexeril as needed for muscle spasm, tylenol for mild pain, oxycodone as needed for moderate pain. Please continue to take Miralax up to 4 times a day as needed for constipation. Pending Studies at Discharge: No Stand-Alone Forms: My [facility] [employer], Smoking Cessation Medications and DC Order Prescriptions: New docusate sodium 100 mg Capsule 100 mg PO BID Qty: 60 0RF Rx Instructions: OTC polyethylene glycol 3350 [Miralax] 17 gram Powder In Packet 17 g PO TID Qty: 100 0RF Rx Instructions: OTC sennosides [Senokot] 8.6 mg Tablet 17.2 mg PO QAM Qty: 60 0RF Rx Instructions: OTC oxycodone-acetaminophen [Percocet] 5-325 mg tablet 1 tab PO Q6H PRN (Reason: moderate pain (scale score 5-6)) Qty: 14 0RF Continued simvastatin 10 mg tablet 10 mg PO HS Qty: 90 3RF Flovent Diskus 250 mcg/actuation blister with device 1 inh INHALATION BID Qty: 180 3RF levothyroxine 75 mcg tablet 75 mcg PO DAILY Qty: 90 1RF lisinopril 10 mg tablet 10 mg PO DAILY Qty: 90 1RF cyanocobalamin (vitamin B-12) 1,000 mcg capsule 1,000 mcg PO DAILY calcium phos-vit D3-mag oxide 600 mg calcium- 500 unit-50 mg tablet 1 tab PO BID (DME) Incentive Spirometer Misc See Rx Instructions .MEDSUPPLY Qty: 1 0RF Rx Instructions: As directed cholecalciferol (vitamin D3) 25 mcg (1,000 unit) capsule 3,000 unit PO QAM acetaminophen [Tylenol] 325 mg Tablet 325 mg PO Q4H PRN (Reason: Mild Pain (Scale Score 1-4)) ondansetron 4 mg tablet,disintegrating 4 - 8 mg PO Q8H PRN (Reason: nausea and vomiting) Qty: 14 0RF Changed cyclobenzaprine 5 mg tablet 5 mg PO TID PRN (Reason: muscle spasm) Qty: 15 0RF Discontinued prednisone 10 mg tablet 10 mg PO .COMPLEX Qty: 30 0RF Rx Instructions: Take 4 tab daily x 3 days, then 3 tablets daily x 3 day, then 2 tablets daily x 3 day, 1 tablet x 3 days Discharge Orders: Discharge Order (Routine); Ordered 06/26/22 Ordered By: Racquel Ro/Other Patient Handouts: Compression Fx, How Bones Heal Admission Data Admit Date/Time: 06/22/22 16:13 Attending Provider: Racquel Mahmood Admit Provider: Case Ragsdale Primary Care Provider: PCP,NO Other Providers: Case Ragsdale ; Heath Rosas ; [facility],Home Healthcare Other Interventions: Discharge Summary Assessment (RN) Last Done: 06/26/22 17:30 Coding Level of Care Code 45058 INP/OBS DISCH >30 MIN Diagnoses Lumbar compression fracture S32.000A Osteoporosis with current pathological fracture M80.00XA Asthma J45.909 Hypertension I10 Hyperlipidemia E78.5 Hypothyroidism E03.9 Thrombocytopenia D69.6 MGUS (monoclonal gammopathy of unknown significance) D47.2
== END 2022-06-26 18:08 | disposition home health service (06) | DRG 479 ==
LOC: ED 08:54 → 3N 08:54 → SUATTDRO 10:28 → 3N 11:09